=== PATIENT | male | born 1965 | race Caucasian/White ===

== ENCOUNTER 2024-02-25 23:27 | Inpatient (IN) | payer BC, SELFPAY ==
[2024-02-25] VITALS (9 sets, daily range): BP systolic 88–121; BP diastolic 39–67
[2024-02-25 18:18] LABS: % Basophils 0.9 % (0-2); % Eosinophils 1.7 % (0-6); % Immature Granulocytes 0.6 % (0-0.5); % Lymphocytes 24.2 % (20.5-51.1); % Monocytes 13.7 % (1.7-9.3); % Neutrophils 58.9 % (42.2-75.2); Absolute Basophils 0.1 10^3/uL (0-0.2); Absolute Eosinophils 0.2 10^3/uL (0-0.7); Absolute Immature Granulocytes 0.1 10^3/uL (0-0.05); Absolute Lymphocytes 2.2 10^3/uL (1.2-3.4); Absolute Monocytes 1.2 10^3/uL (0.1-0.6); Absolute Neutrophils 5.3 10^3/uL (1.4-6.5); Hematocrit 39.3 % (39.0-52.0); Hemoglobin 14.4 g/dL (13.0-18.0); Mean Corp Hgb Conc. 36.6 g/dL (33.0-37.0); Mean Corpuscular Volume 84.5 fL (80.0-94.0); Mean Platelet Volume 9.2 fL (7.4-10.4); Nucleated Red Blood Cells % 0 % (-); Platelet Count 450 10^3/uL (130-400); Red Blood Cell Count 4.65 10^6/uL (4.70-6.10); Red Cell Dist. Width 12.4 % (11.5-14.5)
[2024-02-25 18:54] LABS: ALT (SGPT) 19 U/L (0-50); AST (SGOT) 23 U/L (17-59); Albumin 4.9 g/dl (3.5-5.0); Alkaline Phosphatase 93 U/L (38-126); Blood Urea Nitrogen 37 mg/dl (9-20); Calcium 9.8 mg/dl (8.4-10.2); Carbon Dioxide 16 mmol/L (22-30); Chloride 95 mmol/L (98-107); Glucose 102 mg/dl (70-99); Lipase 237 U/L (23-300); Sodium 127 mmol/L (135-145); Total Bilirubin 1.8 mg/dl (0.2-1.3); Total Protein 7.6 g/dl (6.3-8.2); eGFR 50.26
[2024-02-25 19:02] LABS: Potassium 6.6 mmol/L (3.5-5.1)
--- NOTE | 2024-02-25 20:28 | ED.GENMED ---
History of Present Illness
General
Chief Complaint: Abdominal Pain
Source: patient
Time Seen by Provider: 02/25/24 19:58
History of Present Illness
History of Present Illness:
58-year-old male presents to the emergency room complaining of nausea, vomiting, general abdominal discomfort over the past few days. Patient also feels like his stomach, face and mouth are swollen over the past week. In addition feel short of
breath. Patient states he does have a history of adrenal insufficiency. He has been prescribed steroids and Synthroid but has not been taking them for years. Patient denies any recent fever.
Past History
Past History
ED Past Medical History: Other (Both thyroidism, [place]'s disease)
Social History
Tobacco: Non-smoker
Alcohol: None
Drug: None
Living: with family
Employment: Employed
Family History
Family History: Other (Diabetes in mother and father hypothyroidism and rheumatoid arthritis and his mother )
Phy Exam
Physical Exam
Physical Exam:
General: Awake, Alert, Oriented X3. No acute distress.
Vitals: unremarkable
Head: Mild facial edema
Eyes: Pupils equal, EOMI
Throat: Airway intact, no exudates
Neck: Trachea midline
Lungs: Clear and equal b/l
Heart: Regular rate, no murmurs
Abd: Soft, mild diffuse tenderness, No pulsatile mass
Neuro: Nonfocal
Skin: Warm, dry, no rash
Extremities: pulses equal b/l, no edema
Course
Orders/Labs/Results
Orders:
Orders
02/25/24 17:50
Electrocardiogram (*1) Urgent
Reason for Study: Abdominal Pain
EKG- Treatment ONCE
02/25/24 18:10
Complete Blood Count/With Diff Urgent
Comprehensive Metabolic Panel Urgent
Free T4 Urgent
Lipase Urgent
TSH Reflex To Free T4 Urgent
Comment: ADD ON
02/25/24 20:21
0.9% Sodium Chloride 1000 ml [Nss] 1,000 ml IV BOLUS
Hydrocortisone Sod Succinate [Solu-Cortef] 100 mg IV NOW STA
CR Chest - 2 Views Urgent
Comment:
Reason For Exam: sob
02/25/24 20:25
Albuterol Sulfate [Ventolin Nebules] 10 mg INH R NOW STA
Dextrose 50%-Water [Dextrose 50% Syringe] 12.5 grams IV [id number] PRN
Dextrose 50%-Water [Dextrose 50% Syringe] 25 grams IV NOW STA
Insulin Human Regular [Novolin R] 10 units IV NOW STA
02/25/24 20:26
Bedside Glucose PRE IV Insulin- HyperK+ NOW
02/25/24 20:28
Add On- LAB Urgent
Tests Added?: tsh reflex t4
02/25/24 20:32
CT Abd/pelvis W Iv Cont Urgent
Comment:
Reason For Exam: Diffuse abd dscmfrt, nausea, vomiting, adrenal ins
02/25/24 21:44
COVID-19 Antigen Urgent
Source: Nasal Swab
Urinalysis Reflex To Culture Urgent
Date Specimen was Collected: 02/25/24
Time Specimen was Collected: 17:50
Urine Microscopic Reflex Cult Urgent
Urine Culture Urgent
LUIS ENRIQUE Source: U
Specimen Description:
Date Specimen was Collected: 02/25/24
Time Specimen was Collected: 17:50
02/25/24 21:56
Bedside Glucose POST IV Insulin- HyperK+ Q1HX2,Q2HX2
02/25/24 22:08
0.9% Sodium Chloride 1000 ml [Nss] 1,000 ml IV BOLUS
02/25/24 22:10
Cefepime HCl [Maxipime] 2,000 mg IV NOW STA
02/25/24 22:11
Dextrose 50%-Water [Dextrose 50% Syringe] 12.5 grams IV NOW STA
02/25/24 22:25
Blood Culture Urgent
LUIS ENRIQUE Source: Blood/Venous
Specimen Description:
02/25/24 22:34
Blood Culture Routine
LUIS ENRIQUE Source: Blood/Venous
Specimen Description:
02/25/24 22:56
Potassium Urgent
Comment: draw 2 hours after regular insulin IV administration
02/25/24 23:17
Admit/Transfer Patient As Directed
Co-Sign Provider:
Level of Care: Inpatient admission
Assign to:: ICU
Physician / Group: ren
Diagnosis: adrenal crisis
Reason for Hospitalization: adrenal crisis
Expected length of stay greater than two midnights?: Yes
ELOS- Estimated Length of Stay in days: 2
I certify the patient meets the requirements for IP care: Yes
02/25/24 23:19
Code Status As Directed
Resuscitation Status: Full Code
PRN Pain Medication Management As Directed
May give lesser potent ordered pain med per pt: Yes
preference::
Protocol:: Medication orders for pain may be administered in a
manner that supports deferring to patient preference
when the pt is:
- Requesting an ordered lesser potent pain medication.
Least to most potent pain medications are defined
as: acetaminophen < NSAID < tramadol < opioids
(morphine, oxycodone, hydromorphone).
- Requesting a lesser dose of the same medication IF
ORDERED.
- Requesting a less intrusive route of administration
if both routes are prescribed by the provider (PO <
IV).
02/25/24 23:44
BMP [Basic Metabolic Panel] Urgent
Cortisol, Random Urgent
02/25/24 23:45
VANCOMYCIN Pharmacy to Dose [VANCOCIN Pharmacy to Dose] 1 each Pharmacy To Prepare [Call Pharmacy To Prepare] 0 ml IV PER PROTOCOL
Abnormal Lab Results
1002/25/24 02/25/24
18:10 21:44 22:09
RBC 4.65 L 10^6/uL
(4.70-6.10)
Plt Count 450 H 10^3/uL
(130-400)
Abs Immat Gran (auto) 0.1 H 10^3/uL
(0-0.05)
Absolute Monos (auto) 1.2 H 10^3/uL
(0.1-0.6)
Immature Gran % 0.6 H %
(0-0.5)
Monocytes % 13.7 H %
(1.7-9.3)
Sodium 127 L mmol/L
(135-145)
Potassium 6.6 H* mmol/L
(3.5-5.1)
Chloride 95 L mmol/L
(98-107)
Carbon Dioxide 16 L mmol/L
(22-30)
BUN 37 H mg/dl
(9-20)
Creatinine 1.6 H mg/dL
(0.7-1.3)
Glucose 102 H mg/dl
(70-99)
Total Bilirubin 1.8 H mg/dl
(0.2-1.3)
TSH (Reflex) 8.44 H uIU/ml
(0.47-4.68)
Urine Ketones 2+ A
(Negative)
Ur Occult Blood Reflex 2+ A
(Negative)
Urine Nitrite (Reflex) Positive A
(Negative)
Leukocyte Esterase Rfl 2+ A
(Negative)
Urine RBC 3-6 A /HPF
(0-2)
Urine WBC (Reflex) 50-60 A /HPF
(0-5)
Urine Bacteria (Reflex) Moderate A
(Negative)
Urine Glucose 1+ A
(Negative)
POC Glucose 55 L* mg/dl
(70-99)
02/25/24 02/25/24
22:28 22:57
RBC
Plt Count
Abs Immat Gran (auto)
Absolute Monos (auto)
Immature Gran %
Monocytes %
Sodium
Potassium
Chloride
Carbon Dioxide
BUN
Creatinine
Glucose
Total Bilirubin
TSH (Reflex)
Urine Ketones
Ur Occult Blood Reflex
Urine Nitrite (Reflex)
Leukocyte Esterase Rfl
Urine RBC
Urine WBC (Reflex)
Urine Bacteria (Reflex)
Urine Glucose
POC Glucose 132 H mg/dl 114 H mg/dl
(7099) (7099)
02/25/24 18:10
02/25/24 22:56
Vital Signs
Initial and Last Documented VS:
Initial Vital Signs
Temp Pulse Resp BP Pulse Ox
98.2 F 108 16 100/67 98
02/25/24 17:46 02/25/24 17:46 02/25/24 17:46 02/25/24 17:46 02/25/24 17:46
Last Documented Vital Signs
Temp Pulse Resp BP Pulse Ox
98.2 F 99 23 98/55 93
02/25/24 17:46 02/26/24 00:00 02/26/24 00:00 02/26/24 00:00 02/26/24 00:00
MDM/Problems Addressed
Differential Diagnosis Includes:
Adrenal crisis, adrenal insufficiency, urinary tract infection with sepsis, dehydration
MDM/Problems Addressed:
Patient presents with multiple symptoms. He is afebrile. 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 His labs show hyponatremia with hyperkalemia and metabolic acidosis. Also some renal insufficiency.
All these issues certainly be related to his adrenal disease and noncompliance. Patient's EKG showed perhaps mild peaking of the T waves but intervals are normal. Hyperkalemia addressed with IV dextrose and insulin and as well as albuterol. I do
not believe Lokelma or other binding agent is necessary as I suspect the patient's potassium will normalize with treatment of the underlying disease of adrenal insufficiency. Patient was given 100 mg of hydrocortisone for adrenal insufficiency.
Patient given normal saline boluses for hypotension and dehydration. Patient's urinalysis is abnormal. Though he was not febrile he I gave him broad-spectrum antibiotics as adrenal crisis is frequently secondary to an acute infection.
Chronic conditions affecting care: Other ([place]'s disease)
*Radiology
Radiology exam reviewed: preliminary read by ED provider (No acute or abnormality on my review of the patient's chest x-ray)
*Pulse Oximetry
Patient hypoxic: no
*EKG
Interpretation: normal
Heart Rate: 92
Rate: normal
Rhythm: sinus
[place]: normal axis
Interval: normal interval
QRS Pattern: normal QRS
Ischemia: non-specific ST changes (Mildly peaked T waves)
*Cement Sprayer Helper Interpretation
Rate: normal
Interpretation: normal
Rhythm: sinus
*Critical Care Note
Total Time (30-74mins, 75-104mins- exclusive of procedures): 35 min
comment:
Critical care statement: A total of 35 minutes of critical care time was provided for this patient. This includes management of unstable vital signs, evaluation of the patient at bedside, reviewing the patient's pertinent medical records, discussion
with consultants, review of old EKGs and review of pertinent medical records. This time with separate from time utilized to perform the aforementioned documented procedures
ED Attending Note
-
Portions of this chart may have been created with voice recognition software.� Occasional wrong word or��sound alike� substitutions may have occurred due to the inherent limitations of voice recognition software.
Discharge Plan
Departure
Patient Disposition: Admit
Date of Disposition: 02/25/24
Time of Disposition: 22:56
Admit to: ICU
Presentation/result/management discussed w/ accepting MD/DO: Hospitalist
Condition: Serious
Discharge Problem:
Adrenal crisis, Hyperkalemia, Hypotension
Interventions
Interventions:
*Risk Screen - Suicide Last Done: 02/25/24 17:46
*General Assessment Last Done: 02/25/24 20:15
*Neglect/Abuse Screening Last Done: 02/25/24 17:46
ED- Fall Risk Assessment Last Done: 02/25/24 20:16
*ED COVID-19 Vaccine History Last Done: 02/25/24 20:15
SD-Buzeku-Vjfbllumib Assessment Last Done: 02/25/24 20:16
[2024-02-25 20:31] LABS: Glucose - Point of Care 99 mg/dl (70-99)
[2024-02-25] MEDS: VENTOLIN NEBULES 10 MG INH (20:43)
[2024-02-25] MEDS: SOLU-CORTEF 100 MG IV (20:44)
[2024-02-25] MEDS: DEXTROSE 50% SYRINGE 25 GRAMS IV (20:44)
[2024-02-25] MEDS: NOVOLIN R 10 UNITS IV (20:44)
[2024-02-25] MEDS: NSS 1000 IV ×2 (20:47→22:35)
[2024-02-25 21:51] LABS: TSH Reflex To Free T4 8.44 uIU/ml (0.47-4.68)
[2024-02-25 21:58] LABS: Urine Albumin Negative (Neg - Trace); Urine Bilirubin Negative (Negative); Urine Character Slightly Cloudy (Clear); Urine Color Yellow; Urine Glucose 1+ (Negative); Urine Ketone 2+ (Negative); Urine Leukocyte 2+ (Negative); Urine Nitrite Positive (Negative); Urine Occult Blood 2+ (Negative); Urine Urobilinogen Negative (Neg - 1+)
[2024-02-25 22:10] LABS: Glucose - Point of Care 55 mg/dl (70-99)
[2024-02-25 22:12] LABS: COVID-19 Antigen Negative (Negative)
[2024-02-25] MEDS: DEXTROSE 50% SYRINGE 12.5 GRAMS IV (22:12)
[2024-02-25 22:20] LABS: Free T4 1.07 ng/dl (0.78-2.19)
[2024-02-25 22:29] LABS: Glucose - Point of Care 132 mg/dl (70-99)
[2024-02-25] MEDS: MAXIPIME 2000 MG IV (22:35)
[2024-02-25 22:58] LABS: Glucose - Point of Care 114 mg/dl (70-99)
[2024-02-25 22:59] LABS: Urine Bacteria Moderate (Negative); Urine White Cell 50-60 /HPF (0-5)
[2024-02-25 23:19] LABS: Potassium 4.7 mmol/L (3.5-5.1)
--- NOTE | 2024-02-25 23:23 | HPS.HSE ---
Family Physician
-
Family Physician: Julieta Santos
Chief Complaint
-
abdominal pain
History of Present Illness
58-year-old male past medical history of adrenal insufficiency, chronic abdominal pain since childhood, hypothyroidism presenting with nausea and epigastric abdominal pain, right neck swelling over the past few days. He denies any diarrhea. He
denies any fevers or chills. He denies any cough or shortness of breath. He denies any urinary symptoms. He denies any chest pain. He denies any upper respiratory symptoms.
He has a history of adrenal insufficiency which was diagnosed several years ago under similar circumstances. He has had abdominal pain since childhood which was undiagnosed for a long period of time. He was supposed to be on steroid replacement
and thyroid replacement but has not taken the medications for several years or followed up with an pattern ruler. He denies any fevers or chills, weight gain or weight loss.
He denies smoking or alcohol use.
Denies smoking or alcohol use.
Medical History
Past Medical History
Past Medical History: Reports Other (adrenal insufficiency, chronic abdominal pain since childhood, hypothyroidism)
Past Surgical History: Reports None
Social History
Tobacco: Non-smoker
Alcohol: None
Drug: None
Family History
Family History: Not pertinent
Allergies / Home Medications
Allergies reflects when Allergies were last updated in [employer].
Home Medications with original date entered in [employer]
Allergy/Medication List:
Allergies
Allergy/AdvReac Type Severity Reaction Status Date / Time
grass pollen Allergy Unknown Verified 02/25/24 20:38
house dust Allergy Unknown Verified 02/25/24 20:36
pollen extracts Allergy Unknown Verified 02/25/24 20:36
tree and shrub pollen Allergy Unknown Verified 02/25/24 20:36
Home Medications
No Meds [No Current Medications] 02/25/24
Review of Systems
-
History Source: Patient
A 12 point ROS was completed and negative except as noted: Yes
Constitutional: Reports No Symptoms
EENT: Reports No Symptoms
Respiratory: Reports No Symptoms
Cardiac: Reports No Symptoms
Abdomen/GI: Reports See HPI
: Reports No Symptoms
Musculoskeletal: Reports No Symptoms
Skin: Reports No Symptoms
Neurological: Reports No Symptoms
Endocrine: Reports No Symptoms
Hematologic/Lymphatic: Reports No Symptoms
Psych: Reports No Symptoms
Physical Exam
Vital Signs
Vital Signs
Temp Pulse Resp BP Pulse Ox
98.2 F 95 18 92/57 98
02/25/24 17:46 02/25/24 23:00 02/25/24 23:00 02/25/24 22:30 02/25/24 23:00
Physical Exam
General: Well Developed, Well Nourished and No Apparent Distress
HEENT: NormoCephalic, Moist mucous membranes and Atraumatic
Respiratory: Clear
Cardiac: S1/S2 and Regular Rhythm; No Murmur or Rub
GI: Soft, Non Tender, Non Distended and Normal Bowel Sounds; No Organomegaly
Rectal: Deferred by Provider
Musculoskeletal: No Clubbing, No Cyanosis and No Edema
Skin: No Rash
Neuro: Nonfocal/grossly intact
Laboratory Results
-
02/25/24 18:10
02/25/24 22:56
Laboratory Results
Total Bilirubin 1.8 mg/dl (0.2-1.3) H 02/25/24 18:10
AST 23 U/L (17-59) 02/25/24 18:10
ALT 19 U/L (0-50) 02/25/24 18:10
Alkaline Phosphatase 93 U/L (38-126) 02/25/24 18:10
Lipase 237 U/L (23-300) 02/25/24 18:10
Data Reviewed
-
Lab Data: Labs Reviewed by me
Old Records: Reviewed
Impression/Plan
-
IMPRESSION:
PLAN:
# Hypovolemic shock secondary acute adrenal insufficiency/crisis secondary to [place]'s medication noncompliance versus UTI
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
-CT abdomen pelvis without acute finding
-Chest x-ray negative
-Check ACTH, cortisol level, TSH
-100 IV hydrocortisone given
-Continue 50 IV hydrocortisone q6
-Endocrinology consult tomorrow
# Asymptomatic pyuria
-Await urine culture
-Zosyn
# Non-anion gap metabolic acidosis
# Severe hyperkalemia secondary to adrenal insufficiency
-IV fluids given
-Insulin dextrose given, albuterol given
-Recheck BMP in 4 hours
# Hyponatremia secondary to renal insufficiency
- monitor with current treatments
# Acute kidney injury secondary to hypotension
-IV fluid
# Subclinical hypothyroidism
-TSH of 8.44, free T4 1.07
-Patient needs to be on levothyroxine
# Right neck swelling secondary to lymph node versus edema from adrenal insufficiency
-Appears to be due to palpable lymph node although no evidence of upper respiratory infection
Full code
DVT prophylaxis-heparin
Regular diet
[2024-02-26] VITALS (24 sets, daily range): BP systolic 84–111; BP diastolic 45–76; BMI 19.6; BMI 19.5
[2024-02-26 00:10] LABS: Blood Urea Nitrogen 34 mg/dl (9-20); Calcium 8.2 mg/dl (8.4-10.2); Carbon Dioxide 14 mmol/L (22-30); Chloride 100 mmol/L (98-107); Estimated Creatinine Clearance 62 ml/min; Glucose 124 mg/dl (70-99); Potassium 4.8 mmol/L (3.5-5.1); Sodium 129 mmol/L (135-145); eGFR > 60.00
[2024-02-26 00:55] LABS: Glucose - Point of Care 124 mg/dl (70-99)
[2024-02-26] MEDS: SOLU-CORTEF 50 MG IV ×2 (01:20→06:09)
[2024-02-26] MEDS: NSS 1000 IV (01:24)
[2024-02-26 01:27] LABS: Cortisol, Random 78.3 ug/dl
[2024-02-26] MEDS: ZOSYN 50 IV ×2 (01:32→06:09)
--- NOTE | 2024-02-26 02:07 | PTCARENOTE ---
Received pt from er awake oriented tolerated transfer well.Pt ambulated from stretcher to bed without difficulty.Physical assessment preformed,pt denies pain,VS stable afebrile,NSR metal sprayer production.IVF initiated NSS at 120mls hour.Pt self positioning
in bed.Close observation ongoing throughout the night.
[2024-02-26] MEDS: VANCOCIN 300 ML IV (02:28)
[2024-02-26] MEDS: VANCOCIN 300 MG IV (02:28)
[2024-02-26 05:11] LABS: % Basophils 0.2 % (0-2); % Immature Granulocytes 0.3 % (0-0.5); % Lymphocytes 6.4 % (20.5-51.1); % Monocytes 1.8 % (1.7-9.3); % Neutrophils 91.3 % (42.2-75.2); Absolute Lymphocytes 0.4 10^3/uL (1.2-3.4); Absolute Monocytes 0.1 10^3/uL (0.1-0.6); Absolute Neutrophils 5.7 10^3/uL (1.4-6.5); Hematocrit 34.3 % (39.0-52.0); Hemoglobin 12.3 g/dL (13.0-18.0); Mean Corp Hgb Conc. 35.9 g/dL (33.0-37.0); Mean Corpuscular Hgb 30.6 pg (27.0-31.0); Mean Corpuscular Volume 85.3 fL (80.0-94.0); Mean Platelet Volume 9.3 fL (7.4-10.4); Nucleated Red Blood Cells % 0 % (-); Platelet Count 329 10^3/uL (130-400); Red Blood Cell Count 4.02 10^6/uL (4.70-6.10); Red Cell Dist. Width 12.3 % (11.5-14.5); White Blood Cell Count 6.2 10^3/uL (4.8-10.8)
[2024-02-26 05:32] LABS: APTT 35.3 Sec (23.4-35.0)
[2024-02-26 05:33] LABS: ALT (SGPT) 17 U/L (0-50); AST (SGOT) 19 U/L (17-59); Albumin 3.9 g/dl (3.5-5.0); Alkaline Phosphatase 80 U/L (38-126); Blood Urea Nitrogen 26 mg/dl (9-20); Calcium 8.8 mg/dl (8.4-10.2); Carbon Dioxide 14 mmol/L (22-30); Chloride 101 mmol/L (98-107); Estimated Creatinine Clearance 71 ml/min; Glucose 133 mg/dl (70-99); Potassium 5.9 mmol/L (3.5-5.1); Sodium 130 mmol/L (135-145); Total Bilirubin 1.7 mg/dl (0.2-1.3); Total Protein 6.4 g/dl (6.3-8.2); eGFR > 60.00
[2024-02-26] MEDS: SODIUM BICARBONATE 50 MEQ IV (06:08)
[2024-02-26] MEDS: SODIUM BICARBONATE 1075 MEQ IV (06:36)
[2024-02-26] MEDS: HEPARIN 5000 UNITS SC (07:49)
--- NOTE | 2024-02-26 07:55 | PTCARENOTE ---
Received patient from night shift supervisor, patient is AAOx4, moves all extremities, denies any pain. He is sinus rhythm on monitor, on room air, lungs clear. Patient has regular diet. Using urinal to void. Heparin for DVT prophylaxis. Will review
orders. call jimenez within reach.
--- NOTE | 2024-02-26 08:17 | CON.INTV ---
Consultation
Consultation Request
Date/Time Consultation Requested: 02/26/2024320
Date/Time Consultation Performed: 02/26/2024809
Requesting Provider: ADDI Chauhan
Performing Provider: Michael Amaro MD
Reason for Consultation: Hypotension/concern for adrenal crisis
Medical History
-
Chief Complaint: Abd pain
History of Present Illness:
58-year-old male non-smoker with a past medical history of [place]'s disease, chronic abdominal pain, hypothyroidism, and GERD who presents with abdominal pain with intermittent nausea for a few days. Patient denies vomiting, and also states that
his left lower mouth has been swollen. No tooth pain reported. He was told to previously follow-up with endocrinology and was supposed be on steroid replacement + thyroid hormone medications but has not been taking these medications for several
years or has seen an mail messenger contractor. In the ER he was afebrile to 98.2 �F, tachycardic to 108 bpm, BP 100/67, breathing at 16 breaths/min and saturating 98% on room air. Initial labs showed normal WBC at 9, Hb 14.4, platelet count 450, potassium
6.6, serum bicarbonate level 16, A, creatinine 1.6, glucose 102, T. bili 1.8, and TSH 8.44 (free T4: 1.07). His urinalysis was positive for nitrites with 50�60 urine WBC and moderate bacteria. He is COVID antigen was negative. Blood cultures
were collected in addition to urine culture. CXR showed no acute cardiopulmonary pathology, and CT A/P showed no acute findings in the abdomen or pelvis with mild prostamegaly with prominent central calcifications. In the ER he was given cefepime,
10 units insulin with D50, albuterol, 100 mg hydrocortisone and IVF with NS 0.9% x 2L. He was admitted to the ICU for further care and integration assistant services consulted for additional management/recommendations.
Patient was seen and evaluated this morning. Heart rate 88, BP 109/76 and saturating 98% on room air. Denies any painful urination, and as of this morning his abdominal pain is resolved. He says that his abdominal pain was in the lower abdomen.
He denies SOB, chest pain, RESTREPO, nausea, fevers or chills.
PMHx: History of adrenal insufficiency/[place]'s disease NOS, chronic abdominal pain, hypothyroidism, GERD, history of bilateral cataracts
PSHx: Non-contributory
Past Medical History
Past Medical History: Other (Above as per HPI)
Past Surgical History: Other (Above as per HPI)
Social History
Tobacco: Non-smoker
Alcohol: None
Drug: None
Family History
Family History: Cancer (Paternal grandfather: Lymphoma)
Allergies / Home Medications
Allergies
Allergy/AdvReac Type Severity Reaction Status Date / Time
grass pollen Allergy Unknown Verified 02/25/24 20:38
house dust Allergy Unknown Verified 02/25/24 20:36
pollen extracts Allergy Unknown Verified 02/25/24 20:36
tree and shrub pollen Allergy Unknown Verified 02/25/24 20:36
Home Medications
�Medication �Instructions �Recorded �Confirmed �Last Taken �Type
No Meds [No Current Medications] 02/25/24 02/25/24 Unknown History
Review of Systems
-
History Source: Patient
All other systems: Negative unless noted
Vitals / Labs / Diagnostic Testing
Vital Signs
Temp Pulse Resp BP Pulse Ox
97.9 F 96 19 99/72 95
02/26/24 08:25 02/26/24 07:15 02/26/24 07:15 02/26/24 07:00 02/26/24 08:02
Lab Data
02/26/24 04:48
02/26/24 04:48
Laboratory Results
02/26/24
04:48
PT 15.0 H
INR 1.20
APTT 35.3 H
Diagnostic Testing:
Physical Exam
-
HEENT: Normocephalic and Anicteric
Cardiovascular: S1/S2 and Peripheral Edema (negative)
Respiratory: Clear, Wheeze (negative), Rales (negative), Rhonchi (negative) and Non-Labored Respirations
GI: Soft, Non Distended, Non Tender and Normal Bowel Sounds
Neurology: Awake, Alert and Tremors (negative)
Skin: Warm and Dry
General: Respiratory Distress (negative), Comfortable, Chills (negative) and Sweats (negative)
Assessment
-
Assessment: 58-year-old male non-smoker with a past medical history of Lance's disease, chronic abdominal pain, hypothyroidism, and GERD who presents with abdominal pain with intermittent nausea for a few days. Patient denies vomiting, and also
states that his left lower mouth has been swollen. No tooth pain reported. He was told to previously follow-up with endocrinology and was supposed be on steroid replacement + thyroid hormone medications but has not been taking these medications
for several years or has seen an mail messenger contractor. In the ER he was afebrile to 98.2 �F, tachycardic to 108 bpm, BP 100/67, breathing at 16 breaths/min and saturating 98% on room air. Initial labs showed normal WBC at 9, Hb 14.4, platelet count
450, potassium 6.6, serum bicarbonate level 16, A, creatinine 1.6, glucose 102, T. bili 1.8, and TSH 8.44 (free T4: 1.07). His urinalysis was positive for nitrites with 50�60 urine WBC and moderate bacteria. He is COVID antigen was negative.
Blood cultures were collected in addition to urine culture. CXR showed no acute cardiopulmonary pathology, and CT A/P showed no acute findings in the abdomen or pelvis with mild prostamegaly with prominent central calcifications. In the ER he was
given cefepime, 10 units insulin with D50, albuterol, 100 mg hydrocortisone and IVF with NS 0.9% x 2L. He was admitted to the ICU for further care and integration assistant services consulted for additional management/recommendations.
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
Impression:
#Hypotension -likely due to UTI, doubtful to be adrenal insufficiency given random cortisol level is WNL at 78.3, which was drawn after hydrocortisone given in the ER
#Abnormal urinalysis suspicious for UTI with positive nitrite and 50�60 urine WBC with moderate bacteria
#Anemia (mild)
#Metabolic acidosis with increased anion gap likely due to KASSIE (last creatinine on file was 0.8 from 2010)
#Hyperkalemia
#Hyperbilirubinemia
#Hyponatremia
#Subclinical hypothyroidism
#History of adrenal insufficiency/[place]'s disease NOS
Plan:
- Continue antibiotics (currently on IV vancomycin + Zosyn) --> considering that likely infection is UTI, will change to ceftriaxone; plan for total of 5-7 days Abx
- Follow up blood Cx + UCx (both collected 02/25/2024)
- Currently on bicarb drip
- Trend pH + pCO2 --> pH 7.34 and serum bicarbonate level on repeat labs this 20 ---> okay to stop bicarb drip now at this time and continue trending pH + serum bicarbonate level
- BOHB level also checked and was WNL at 0.12
- Patient currently on hydrocortisone 50 mg IV q6hr --> consider cosyntropin stimulation test to assess for primary adrenal insufficiency however will first stop hydrocortisone as adrenal insufficiency is unlikely given his random cortisol level is
>75
- Check lactate level --> WNL at 1.6 (no longer need to continue trending)
- Follow up ACTH
- Follow-up outpatient with endocrinology
- Maintain SpO2 >90-94%
- Maintain MAP>65
- Replete electrolytes with K>4, Mg>2
- Maintain euglycemia with goal BG 140-180
- Trend H/H and transfuse if needed to keep Hb>7g/dL; kep plt>20k, unless there is concern for bleeding then keep plt>50k
- prn nebulized bronchodilators - not currently bronchospastic
- Incentive spirometer encouraged 10x per hour for at least 4 hrs a day
- DVT ppx: LMWH
Patient is stable for downgrade out of ICU to telemetry given his potassium is now normalized, serum bicarbonate is improved and bicarb drip is now discontinued. As stated above, he should follow-up with endocrinology as an outpatient.
Clinical Review Nurse/Pulmonary service will now sign off. Thank you for allowing us to be involved in the care of this patient. Please reconsult if there are any additional questions/concerns, or if patient's respiratory status deteriorates.
Total time spent today was 56 minutes for this encounter. Time includes reviewing laboratory test/imaging results, reviewing pertinent medical records, obtaining and reviewing medical history, performing an appropriate exam, ordering medications,
tests and procedures. Time also includes documentation of this encounter, coordinating patient care and communicating with other healthcare professionals. Total time does not include separately billed tests performed on this date of service.
--- NOTE | 2024-02-26 08:28 | W.PN.HOSP.TC ---
Today's Communication/Plan
-
Transferred from ICU to tele
Continue antibiotics, follow cultures
I spoke with on-call party demonstrator, okay to hold off on Hydrocortisone for now but if patient becomes hypotensive and blood pressure drops, will need to start IV stress dose steroids in addition to transfer to IMU/ICU and fluids, pressors if needed
Recheck cortisol level tomorrow morning
Assessment / Plan
Assessment / Plan
Physical Exam
General: Well Developed, Well Nourished and No Apparent Distress
HEENT: NormoCephalic, Moist mucous membranes and Atraumatic
Respiratory: Clear
Cardiac: S1/S2 and Regular Rhythm; No Murmur or Rub
GI: Soft, Non Tender, Non Distended and Normal Bowel Sounds; No Organomegaly
Rectal: Deferred by Provider
Musculoskeletal: No Clubbing, No Cyanosis and No Edema
Skin: No Rash
Neuro: Nonfocal/grossly intact

Assessment/Plan
58-year-old male non-smoker with a past medical history of [place]'s disease, chronic abdominal pain, hypothyroidism, and GERD who presented with abdominal pain with intermittent nausea for a few days prior to presentation. Patient reported that his
left lower mouth had been swollen. Patient was told to previously follow-up with endocrinology and was supposed be on steroid replacement + thyroid hormone medications but has not been taking these medications for several years or had seen an
party demonstrator. In the ER, he was afebrile to 98.2 �F, tachycardic to 108 bpm, BP 100/67, breathing at 16 breaths/min and saturating 98% on room air. Initial labs showed normal WBC at 9, Hb 14.4, platelet count 450, potassium 6.6, serum
bicarbonate level 16, A, creatinine 1.6, glucose 102, T. bili 1.8, and TSH 8.44 (free T4: 1.07). His urinalysis was positive for nitrites with 50�60 urine WBC and moderate bacteria. His COVID antigen was negative. Blood cultures were collected
in addition to urine culture. CXR showed no acute cardiopulmonary pathology, and CT A/P showed no acute findings in the abdomen or pelvis. In the ER, he was given cefepime, 10 units insulin with D50, albuterol, 100 mg hydrocortisone and IVF with NS
0.9% x 2L. He was admitted to the ICU for further care and legal administrative secretary services consulted for additional management/recommendations.
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
#Hypotension - likely secondary to UTI
#Abnormal urinalysis suspicious for UTI with positive nitrite and 50�60 urine WBC with moderate bacteria
-CT abdomen pelvis without acute finding
-Chest x-ray negative
-Cortisol level unreliable (as patient received hydrocortisone IV shortly before that), need another cortisol level
-Hydrocortisone stress dose steroids stopped, but if patient becomes hypotensive and blood pressure drops, start IV stress dose steroids in addition to transfer to IMU/ICU
-Recheck cortisol level again tomorrow morning
-TSH noted as high -- if patient does not have adrenal insufficiency, then can start Levothyroxine
-Continue antibiotics with Rocephin, status post Vancomycin and Zosyn -- continue for a total of 5 to 7 days of antibiotics
-Follow blood cultures and urine cultures
-Spoke with endocrinology who recommended repeating a cortisol level tomorrow morning
#Anemia
-Monitor CBC
#Metabolic acidosis with increased anion gap likely due to KASSIE (last creatinine on file was 0.8 from 2010)
#Hyperkalemia
-Received bicarb drip
-Beta Hydroxybutyrate level also checked and was WNL at 0.12
-Monitor BMP
#History of adrenal insufficiency/[place]'s disease NOS
#Hyponatremia, suspected secondary to renal insufficiency
-Monitor BMP
-PO Fluid Restriction
# Acute kidney injury - RESOLVED - secondary to hypotension
# Subclinical hypothyroidism
-TSH of 8.44, free T4 1.07
-Patient needs to be on levothyroxine BUT not yet -- first need to rule out adrenal insufficiency
# Right neck swelling secondary to lymph node versus edema from adrenal insufficiency
-Appears to be due to palpable lymph node although no evidence of upper respiratory infection
#Hyperbilirubinemia
#Chronic abdominal pain
#Hypothyroidism
#GERD
#History of bilateral cataracts
Code Status: Full code
DVT Prophylaxis: Heparin Subq
Diet: Regular diet
Anticipated Discharge: > 48 hours
Subjective/Interval History
-
Date of Service: February 26, 2024
Patient was seen and examined. He denied any new significant symptoms or complaints.
Objective Data
-
Labs:
Laboratory Results
02/25/24 02/25/24 02/26/24
22:56 23:44 04:48
WBC 6.2
Hgb 12.3 L
Hct 34.3 L
Plt Count 329 D
PT 15.0 H
INR 1.20
APTT 35.3 H
Sodium 129 L 130 L
Potassium 4.7 D 4.8 5.9 H
Chloride 100 101
Carbon Dioxide 14 L* 14 L*
BUN 34 H 26 H
Creatinine 1.3 1.1
Glucose 124 H 133 H
Calcium 8.2 L D 8.8
Total Bilirubin 1.7 H
AST 19
ALT 17
Alkaline Phosphatase 80
Vital Signs:
Vital Signs
Temp Pulse Resp BP Pulse Ox
97.9 F 96 19 99/72 95
02/26/24 08:25 02/26/24 07:15 02/26/24 07:15 02/26/24 07:00 02/26/24 08:02
I&O
02/25/24 02/26/24 02/27/24
06:59 06:59 06:59
Intake Total 1360 / 1460 200 / 200
Output Total 800 / 800
Balance 560 / 660 200 / 200
--- NOTE | 2024-02-26 09:59 | CM ---
CM following re: discharge planning.
Reviewed pt's chart, met with pt.
Pt is a 58 year old male, admitted with primary dx of abdominal pain.
Pt reports he livers with father, stepmother, sister in law and a nephew in a 2SH, 2 steps to enter, has no children. Pt described himself as independent in all areas [employer]. No DME, VN or SNF history.
PCP: Julieta Santos
Pharmacy: [facility].
D/C plan: home with anticipated no needs. Family to transport at discharge.
CM will follow with discharge plan updates as hospitalization progresses
[2024-02-26 11:07] LABS: Venous Blood Gas B.E. -4.8 mmol/L (-4 to +4); Venous Blood Gas HCO3 20.5 mmol/L (22-27); Venous Blood Gas O2 Sat % 95.6 %; Venous Blood Gas pCO2 38 mmHg (35-48); Venous Blood Gas pH 7.34 (7.32-7.43); Venous Blood Gas pO2 71 mmHg (30-50)
[2024-02-26 11:22] LABS: Lactic Acid 1.6 mmol/L (0.7-2.0)
[2024-02-26] MEDS: STERILE WATER FOR INJECTION 10 ML IV (13:38)
[2024-02-26] MEDS: ROCEPHIN 1000 MG IV (13:38)
[2024-02-26 14:44] LABS: Blood Urea Nitrogen 26 mg/dl (9-20); Calcium 8.3 mg/dl (8.4-10.2); Carbon Dioxide 20 mmol/L (22-30); Chloride 97 mmol/L (98-107); Estimated Creatinine Clearance 87 ml/min; Glucose 195 mg/dl (70-99); Potassium 4.6 mmol/L (3.5-5.1); Sodium 128 mmol/L (135-145); eGFR > 60.00
[2024-02-26 14:51] LABS: B-Hydroxybutyrate 0.12 mmol/L (0.02-0.27)
--- NOTE | 2024-02-26 15:43 | PTCARENOTE ---
No change in patient's assessment. Bicarb gtt discontinued. Will downgrade to tele status per MD
--- NOTE | 2024-02-26 16:48 | PTCARENOTE ---
Transferred patient to room 316 bed 1.
[2024-02-26] MEDS: LOVENOX 40 MG SC (17:52)
--- NOTE | 2024-02-26 17:55 | PTCARENOTE ---
1625 Pt received in bed as transferred from ICU. Pt oriented to staff, environment and call light system.
[2024-02-26 22:08] LABS: Blood Urea Nitrogen 30 mg/dl (9-20); Calcium 8.4 mg/dl (8.4-10.2); Carbon Dioxide 21 mmol/L (22-30); Chloride 98 mmol/L (98-107); Estimated Creatinine Clearance 87 ml/min; Glucose 145 mg/dl (70-99); Magnesium 1.6 mg/dl (1.6-2.3); Potassium 4.2 mmol/L (3.5-5.1); Sodium 129 mmol/L (135-145); eGFR > 60.00
[2024-02-27 03:30] VITALS: BP 120/70
[2024-02-27 06:48] LABS: Venous Blood Gas B.E. -1.1 mmol/L (-4 to +4); Venous Blood Gas HCO3 24.3 mmol/L (22-27); Venous Blood Gas O2 Sat % 95.2 %; Venous Blood Gas pCO2 42 mmHg (35-48); Venous Blood Gas pH 7.37 (7.32-7.43); Venous Blood Gas pO2 70 mmHg (30-50)
[2024-02-27 06:54] LABS: Hemoglobin 12.7 g/dL (13.0-18.0); Mean Corp Hgb Conc. 36.3 g/dL (33.0-37.0); Mean Corpuscular Hgb 30.9 pg (27.0-31.0); Mean Corpuscular Volume 85.2 fL (80.0-94.0); Mean Platelet Volume 9.2 fL (7.4-10.4); Platelet Count 359 10^3/uL (130-400); Red Blood Cell Count 4.11 10^6/uL (4.70-6.10); Red Cell Dist. Width 12.4 % (11.5-14.5); White Blood Cell Count 7.5 10^3/uL (4.8-10.8)
[2024-02-27 07:16] VITALS: BP 114/72
[2024-02-27 07:32] LABS: ALT (SGPT) 18 U/L (0-50); AST (SGOT) 19 U/L (17-59); Alkaline Phosphatase 71 U/L (38-126); Blood Urea Nitrogen 23 mg/dl (9-20); Carbon Dioxide 23 mmol/L (22-30); Chloride 98 mmol/L (98-107); Direct Bilirubin 0.1 mg/dl (0.0-0.4); Estimated Creatinine Clearance 98 ml/min; Glucose 106 mg/dl (70-99); Magnesium 1.7 mg/dl (1.6-2.3); Sodium 134 mmol/L (135-145); Total Bilirubin 0.6 mg/dl (0.2-1.3); Total Protein 6.5 g/dl (6.3-8.2); eGFR > 60.00
[2024-02-27 07:57] LABS: Cortisol, Random 5.5 ug/dl
[2024-02-27 08:54] LABS: % Basophils 0.6 % (0-2); % Eosinophils 0.9 % (0-6); % Immature Granulocytes 0.3 % (0-0.5); % Lymphocytes 23.9 % (20.5-51.1); % Monocytes 9.1 % (1.7-9.3); % Neutrophils 65.2 % (42.2-75.2); Absolute Eosinophils 0.1 10^3/uL (0-0.7); Absolute Lymphocytes 1.7 10^3/uL (1.2-3.4); Absolute Monocytes 0.6 10^3/uL (0.1-0.6); Absolute Neutrophils 4.5 10^3/uL (1.4-6.5); Hematocrit 33.3 % (39.0-52.0); Mean Corpuscular Hgb 30.9 pg (27.0-31.0); Mean Corpuscular Volume 85.8 fL (80.0-94.0); Mean Platelet Volume 9.4 fL (7.4-10.4); Nucleated Red Blood Cells % 0 % (-); Platelet Count 356 10^3/uL (130-400); Red Blood Cell Count 3.88 10^6/uL (4.70-6.10); Red Cell Dist. Width 12.4 % (11.5-14.5); White Blood Cell Count 6.9 10^3/uL (4.8-10.8)
--- NOTE | 2024-02-27 08:58 | W.PN.HOSP.TC ---
Today's Communication/Plan
-
Discharge today
Assessment / Plan
Assessment / Plan
Physical Exam
General: Not in acute distress
HEENT: Normocephalic, Moist mucous membranes and Atraumatic
Respiratory: Clear to Auscultation Bilaterally
Cardiac: S1/S2 and Regular Rhythm
GI: Soft, Non Tender, Non Distended and Normal Bowel Sounds
Musculoskeletal: No Cyanosis and No Edema
Skin: Warm. Dry.
Neuro: Nonfocal/grossly intact

Assessment/Plan
58-year-old male non-smoker with a past medical history of [place]'s disease, chronic abdominal pain, hypothyroidism, and GERD who presented with abdominal pain with intermittent nausea for a few days prior to presentation. Patient reported that his
left lower mouth had been swollen. Patient was told to previously follow-up with endocrinology and was supposed be on steroid replacement + thyroid hormone medications but has not been taking these medications for several years or had seen an
demand inspector. In the ER, he was afebrile to 98.2 �F, tachycardic to 108 bpm, BP 100/67, breathing at 16 breaths/min and saturating 98% on room air. Initial labs showed normal WBC at 9, Hb 14.4, platelet count 450, potassium 6.6, serum
bicarbonate level 16, A, creatinine 1.6, glucose 102, T. bili 1.8, and TSH 8.44 (free T4: 1.07). His urinalysis was positive for nitrites with 50�60 urine WBC and moderate bacteria. His COVID antigen was negative. Blood cultures were collected
in addition to urine culture. CXR showed no acute cardiopulmonary pathology, and CT A/P showed no acute findings in the abdomen or pelvis. In the ER, he was given cefepime, 10 units insulin with D50, albuterol, 100 mg hydrocortisone and IVF with NS
0.9% x 2L. He was admitted to the ICU for further care and health and safety representative services consulted for additional management/recommendations.
Chronic conditions [employer]S: History of adrenal insufficiency/Lance's disease NOS,
#Hypotension - likely secondary to UTI
#Abnormal urinalysis suspicious for UTI with positive nitrite and 50�60 urine WBC with moderate bacteria
#Enterococcus UTI
-CT abdomen pelvis without acute finding
-Chest x-ray negative
-Cortisol level unreliable (as patient received hydrocortisone IV shortly before that), need another cortisol level
-Hydrocortisone IV stress dose steroids stopped (and replaced with PO Hydrocortisone), but if patient becomes hypotensive and blood pressure drops, start IV stress dose steroids in addition to transfer to
IMU/ICU
-TSH noted as high -- spoke with Dr. Cano, and okay to start Levothyroxine 50 mcg tomorrow morning
-Status post Rocephin, and status post Vancomycin and Zosyn before the Rocephin
-I spoke on 02/27/24 with clinical pharmacist Charlene Barfield, and after discussion with her via [employer], we agreed to do Amoxicillin 500mg PO TID for 7 days
-Follow-up blood cultures and urine culture final result after discharge
-Spoke with demand inspector Dr. Cano, AM cortisol level rechecked and result came at 5.5, Dr. Cano recommended Hydrocortisone 10 mg QAM (on waking up), and 5 mg QPM (in the afternoons)
#Anemia
-Monitor CBC
#Metabolic acidosis with increased anion gap likely due to KASSIE (last creatinine on file was 0.8 from 2010)
#Hyperkalemia
-Received bicarb drip
-Beta Hydroxybutyrate level also checked and was WNL at 0.12
-Monitor BMP
#History of adrenal insufficiency/Lance's disease NOS
#Hyponatremia, suspected secondary to renal insufficiency
-Monitor BMP
-PO Fluid Restriction
# Acute kidney injury - RESOLVED - secondary to hypotension
# Subclinical hypothyroidism
-TSH of 8.44, free T4 1.07
-Okay to start Levothyroxine 50 mcg daily starting on 02/27/24, as discussed with Dr. Cano, especially given that we have started the patient on hydrocortisone as well
# Right neck swelling secondary to lymph node versus edema from adrenal insufficiency
-Appears to be due to palpable lymph node although no evidence of upper respiratory infection
#Hyperbilirubinemia
#Chronic abdominal pain
#Hypothyroidism
#GERD
#History of bilateral cataracts
Code Status: Full code
DVT Prophylaxis: Heparin Subq
Diet: Regular diet
More than 30 minutes spent in discharge including
Final examination of the patient
Summarizing hospital stay
Instructions for continuing care to all relevant caregivers
Preparation of discharge records, prescriptions, and referral forms
Total time spent (in minutes): 38
Anticipated Discharge: Today
Subjective/Interval History
-
Date of Service: February 27, 2024
Patient was seen and examined. He denied any chest pain, shortness of breath, abdominal pain, fever, dizziness or any other complaints.
Objective Data
-
Labs:
Laboratory Results
02/26/24 02/27/24 02/27/24
21:21 06:38 08:39
WBC 7.5 6.9
Hgb 12.7 L 12.0 L
Hct 35.0 L 33.3 L
Plt Count 359 356
Sodium 129 L 134 L
Potassium 4.2 5.0
Chloride 98 98
Carbon Dioxide 21 L 23
BUN 30 H 23 H
Creatinine 0.9 0.8
Glucose 145 H 106 H
Calcium 8.4 9.0
Total Bilirubin 0.6 D
AST 19
ALT 18
Alkaline Phosphatase 71
Vital Signs:
Vital Signs
Temp Pulse Resp BP Pulse Ox
97.5 F 81 17 114/72 99
02/27/24 07:16 02/27/24 07:16 02/27/24 07:16 02/27/24 07:16 02/27/24 07:16
I&O
02/26/24 02/27/24 02/28/24
06:59 06:59 06:59
Intake Total 1360 / 1460 1520 / 1520
Output Total 800 / 800 450 / 450
Balance 560 / 660 1070 / 1070
[2024-02-27] MEDS: CORTEF 10 MG PO (09:19)
[2024-02-27 10:52] VITALS: BP 109/78
[2024-02-27] MEDS: AMOXIL 500 MG PO ×2 (12:24→16:19)
[2024-02-27] MEDS: CORTEF 5 MG PO (15:03)
[2024-02-27 15:05] VITALS: BP 105/73
[2024-02-27] MEDS: LOVENOX SC (17:48)
[2024-02-27] MEDS: AFLURIA (36 mos+) 2024-2025 FORMULA 0.5 ML IM (17:55)
[2024-02-27 17:57] VITALS: BP 110/65
[2024-02-28 01:01] LABS: Adrenocorticotropic Hormone 14.8 pg/mL (7.2-63.3)
== END 2024-02-27 19:30 | disposition home or self-care (01) | DRG 690 ==
LOC: 3 WEST ACU 23:27
PROVIDERS: Nurse Practitioner Primary Care; Registered Nurse; ADMITTING PHYSICIAN Hospitalist; ATTENDING PHYSICIAN Hospitalist; CONSULT PHYSICIAN Internal Medicine Critical Care Medicine; EMERGENCY PHYSICIAN Emergency Medicine; FAMILY PHYSICIAN Family Medicine
PROC: 3E02340 Introduction of Influenza Vaccine into Muscle, Percutaneous Approach (ICD-10-PCS; 2024-02-27)
DX: N39.0 Urinary tract infection, site not specified (principal); E87.1 Hypo-osmolality and hyponatremia; E87.20 Acidosis, unspecified; N17.9 Acute kidney failure, unspecified; E27.1 Primary adrenocortical insufficiency; B95.2 Enterococcus as the cause of diseases classified elsewhere; E03.8 Other specified hypothyroidism; E87.5 Hyperkalemia; G89.29 Other chronic pain; I95.9 Hypotension, unspecified; K21.9 Gastro-esophageal reflux disease without esophagitis; D64.9 Anemia, unspecified; Z91.148 Patient's other noncompliance with medication regimen for other reason; Z11.52 Encounter for screening for COVID-19; Z23 Encounter for immunization
CPT/HCPCS: 71046; 74177; 80048; 80053; 81003; 81015; 82010; 82024; 82248; 82533; 82805; 82962; 83605; 83690; 83735; 84100; 84132; 84439; 84443; 85025; 85027; 85610; 85730; 87040; 87077; 87086; 87811; 90686; 93005; 94640; 96361; 96374; 96375; 96376; 99291; G0008; J7030; Q9967

== ENCOUNTER 2024-04-10 11:57 | Inpatient (IN) | payer BC, SELFPAY ==
[2024-04-10] VITALS (65 sets, daily range): BP systolic 63–124; BP diastolic 44–84; BMI 19.5; BMI 19.6
--- NOTE | 2024-04-10 08:27 | ED.GENMED ---
History of Present Illness
<Radha Ellington PA-C - Last Filed: 04/10/24 11:16>
General
Chief Complaint: Fainting/Passed Out
Source: patient
Exam Limitations: none
Time Seen by Provider: 04/10/24 08:10
Nursing documentation reviewed up to this point in time: agreed with
History of Present Illness
History of Present Illness:
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
Presents after family called EMS for syncopal event. Patient says he was up going to the bathroom and suddenly felt lightheaded and then passed out and lost consciousness. He landed on the ground but does not believe he injured his head. He has
no headache or complaints. His family heard the event and called 911 and they told him to leave him on the floor. Patient was awake and alert for EMS but hypotensive and then 90s. Patient was given a 750 bolus of fluid on the way here and his
pressure came up to low 100s for them. Patient's Accu-Chek was normal.
He has had syncope in the past. He cannot recall specific details about it. He is not cardiac patient. Patient says he started vomiting 3 days ago and vomited anything he ate or drank for a period of 24 hours. After that he has not really had an
appetite so he has not had much to eat or drink. He does state that even during the vomiting episodes he was taking his medications however I question the reliability. Patient was unaware of any instructions to stress dose his steroids when he was
sick.
Patient is having some epigastric pain but denies any black stool. His last bowel movement was a day or 2 ago. He has no chest pain, shortness of breath, hematemesis, urinary symptoms. Patient said he had a cough about a month ago but felt like
that was getting better prior to this vomiting several days ago.
Past History
<Radha Ellington PA-C - Last Filed: 04/10/24 11:16>
Past History
ED Past Medical History: Other (Both thyroidism, Kauai's disease)
Social History
Tobacco: Non-smoker
Alcohol: None
Drug: None
Living: with family
Employment: Employed
Family History
Family History: Other (Diabetes in mother and father hypothyroidism and rheumatoid arthritis and his mother )
Review of Systems
<Radha Ellington PA-C - Last Filed: 04/10/24 11:16>
Review of Systems
Allergies reviewed?: Yes
All Other Systems: Not applicable
Phy Exam
<Radha Ellington PA-C - Last Filed: 04/10/24 11:16>
Physical Exam
Physical Exam:
GENERAL: Alert , in no apparent distress
HEAD: NCAT
NECK: no midline tenderness, active ROM intact, no paraspinal muscle tenderness;
EYE: pupils equal and reactive, EOMs intact.
ENT: o/p clr, dry mucous membranes. no hemotympanum
CARDIAC: Tachycardic, no edema
LUNGS: Clear breath sounds bilaterally, no acute respiratory distress, no wheezes/rales/rhonchi
ABDOMEN: Soft, without focal tenderness, no r/g, no cvat
NEUROLOGICAL: Alert and oriented, no focal neuro deficits, CN intact, 5/5 strength, sensation intact
SKIN: Warm and dry,
MUSCULOSKELETAL: No edema, well perfused.
PSYCH: Normal and appropriate interaction.
Course
<Radha Ellington PA-C - Last Filed: 04/10/24 11:16>
Orders/Labs/Results
Orders:
Orders
04/10/24 08:09
Electrocardiogram (*1) Urgent
Reason for Study: Chest Pain
Cardiac Monitoring- Treatment ONCE
EKG- Treatment ONCE
IV Insert/Care/Rem.- Treatment PRN
O2 Therapy [RESP] Urgent
Titrate/Wean O2 to maintain O2 sat greater than (%): 90
Special Instructions: Maintain sats >/=90%
Pulse Ox/spot Check [RESP] Urgent
Quantity: 1
Special Instructions: ON ROOM AIR
04/10/24 08:22
Complete Blood Count/With Diff Urgent
Comprehensive Metabolic Panel Urgent
Cortisol, Random Urgent
Comment: ADD ON
Lipase Urgent
Comment: ADD ON
Serum Osmolality Urgent
Comment: ADD ON
TSH Reflex To Free T4 Urgent
Comment: ADD ON
TSH Urgent
Comment: ADD ON
Troponin I Urgent
04/10/24 08:25
0.9% Sodium Chloride 1000 ml [Nss] 1,000 ml IV BOLUS
Hydrocortisone Sod Succinate [Solu-Cortef] 100 mg IV NOW STA
04/10/24 08:26
Add On- LAB Urgent
Tests Added?: lipase
04/10/24 08:27
CR Chest Portable - 1 View Urgent
Comment:
Reason For Exam: sepsis
Reason Study Needs to be Portable: Patient Unstable
04/10/24 08:28
Add On- LAB Urgent
Tests Added?: tsh reflex t4, random cortisol
04/10/24 08:31
Acetaminophen [Tylenol] 650 mg PO NOW STA
04/10/24 08:49
COVID-19 Antigen Urgent
Source: Nasal Swab
Lactic Acid Q4H
Comment: CANCEL 2nd LACTIC ACID IF 1st LACTIC ACID IS LESS THAN 2
Blood Culture Urgent
LUIS ENRIQUE Source: Blood/Venous
Specimen Description:
Influenza A+B Rapid Molecular Urgent
LUIS ENRIQUE Source: Nasal Swab
Specimen Description:
04/10/24 09:03
Bladder Scan- Treatment ONCE
Dextrose 50%-Water [Dextrose 50% Syringe] 25 grams IV NOW STA
Insulin Human Regular [Novolin R] 4 units IV NOW STA
04/10/24 09:09
CT Abd/pel Without Iv Or Oral Urgent
Comment:
Reason For Exam: hypotensive, vomiting, kassie
04/10/24 09:21
Osmolality, Random Urine Urgent
Date Specimen was Collected: 04/10/24
Time Specimen was Collected: 09:14
Urinalysis Reflex To Culture Urgent
Date Specimen was Collected: 04/10/24
Time Specimen was Collected: 09:14
Urine Microscopic Reflex Cult Urgent
Urine Sodium Urgent
Date Specimen was Collected: 04/10/24
Time Specimen was Collected: 09:14
04/10/24 10:24
0.9% Sodium Chloride 500 ml [Nss] 500 ml IV BOLUS
04/10/24 10:26
Admit Patient As Directed
Co-Sign Provider:
Level of Care: Inpatient admission
Assign to:: ICU
Physician / Group: Hospitalist
Diagnosis: Adrenal crisis, hypovolemic/ septic shock
Reason for Hospitalization: Septic shock
Expected length of stay greater than two midnights?: Yes
ELOS- Estimated Length of Stay in days: 3
I certify the patient meets the requirements for IP care: Yes
Code Status As Directed
Resuscitation Status: Full Code
Precautions As Directed
Type of Precautions: Other
Comment: Fall precautions
PRN Pain Medication Management As Directed
May give lesser potent ordered pain med per pt: Yes
preference::
Protocol:: Medication orders for pain may be administered in a
manner that supports deferring to patient preference
when the pt is:
- Requesting an ordered lesser potent pain medication.
Least to most potent pain medications are defined
as: acetaminophen < NSAID < tramadol < opioids
(morphine, oxycodone, hydromorphone).
- Requesting a lesser dose of the same medication IF
ORDERED.
- Requesting a less intrusive route of administration
if both routes are prescribed by the provider (PO <
IV).
12/05/24 10:29
Activity As Directed
Activity Level: With Assistance
I&O [Intake/ Output] As Directed
Frequency: q12h
DX Deep Vein Thrombosis Video Routine
04/10/24 10:30
Intake/ Output As Directed
Frequency: Per unit guidelines
Vital Signs As Directed
Frequency: Per unit guidelines
04/10/24 10:32
Add On- LAB Urgent
Tests Added?: serum osmolality, tsh, random cortisol
04/10/24 11:00
3% Sodium Chloride 250 ml [Sodium Chloride 3%] 250 ml IV ONCE
04/10/24 20:00
Heparin 5,000 units SC Q12
Abnormal Lab Results
04/10/24 04/10/24 04/10/24
08:22 09:16 09:21
WBC 11.0 H 10^3/uL
(4.8-10.8)
MCH 31.2 H pg
(27.0-31.0)
Plt Count 444 H 10^3/uL
(130-400)
Absolute Neuts (auto) 7.9 H 10^3/uL
(1.4-6.5)
Absolute Monos (auto) 1.3 H 10^3/uL
(0.1-0.6)
Lymphocytes % 13.8 L %
(20.5-51.1)
Monocytes % 11.6 H %
(1.7-9.3)
Sodium 123 L mmol/L
(135-145)
Potassium 6.1 H* mmol/L
(3.5-5.1)
Chloride 93 L mmol/L
(98-107)
Carbon Dioxide 16 L mmol/L
(22-30)
BUN 61 H mg/dl
(9-20)
Creatinine 2.3 H mg/dL
(0.7-1.3)
Glucose 134 H mg/dl
(70-99)
Total Protein 6.1 L g/dl
(6.3-8.2)
Urine Bilirubin 1+ A
(Negative)
Leukocyte Esterase Rfl Trace A
(Negative)
Urine RBC 3-6 A /HPF
(0-2)
Urine Bacteria (Reflex) Few A
(Negative)
POC Glucose 126 H mg/dl
(70-99)
04/10/24
09:44
WBC
MCH
Plt Count
Absolute Neuts (auto)
Absolute Monos (auto)
Lymphocytes %
Monocytes %
Sodium
Potassium
Chloride
Carbon Dioxide
BUN
Creatinine
Glucose
Total Protein
Urine Bilirubin
Leukocyte Esterase Rfl
Urine RBC
Urine Bacteria (Reflex)
POC Glucose 158 H mg/dl
(70-99)
04/10/24 08:22
04/10/24 08:22
Vital Signs
Initial and Last Documented VS:
Initial Vital Signs
Temp
38.2 C H
04/10/24 08:21
Last Documented Vital Signs
Temp Pulse Resp BP Pulse Ox
38.2 C H 93 20 88/50 98
04/10/24 08:21 04/10/24 11:00 04/10/24 11:00 04/10/24 11:00 04/10/24 11:00
<Izaiah Murray, DO - Last Filed: 04/10/24 09:17>
Orders/Labs/Results
Orders:
Orders
04/10/24 08:09
Electrocardiogram (*1) Urgent
Reason for Study: Chest Pain
Cardiac Monitoring- Treatment ONCE
EKG- Treatment ONCE
IV Insert/Care/Rem.- Treatment PRN
O2 Therapy [RESP] Urgent
Titrate/Wean O2 to maintain O2 sat greater than (%): 90
Special Instructions: Maintain sats >/=90%
Pulse Ox/spot Check [RESP] Urgent
Quantity: 1
Special Instructions: ON ROOM AIR
04/10/24 08:22
Complete Blood Count/With Diff Urgent
Comprehensive Metabolic Panel Urgent
Cortisol, Random Urgent
Comment: ADD ON
Lipase Urgent
Comment: ADD ON
Serum Osmolality Urgent
Comment: ADD ON
TSH Reflex To Free T4 Urgent
Comment: ADD ON
TSH Urgent
Comment: ADD ON
Troponin I Urgent
04/10/24 08:25
0.9% Sodium Chloride 1000 ml [Nss] 1,000 ml IV BOLUS
Hydrocortisone Sod Succinate [Solu-Cortef] 100 mg IV NOW STA
04/10/24 08:26
Add On- LAB Urgent
Tests Added?: lipase
04/10/24 08:27
CR Chest Portable - 1 View Urgent
Comment:
Reason For Exam: sepsis
Reason Study Needs to be Portable: Patient Unstable
04/10/24 08:28
Add On- LAB Urgent
Tests Added?: tsh reflex t4, random cortisol
04/10/24 08:31
Acetaminophen [Tylenol] 650 mg PO NOW STA
04/10/24 08:49
COVID-19 Antigen Urgent
Source: Nasal Swab
Lactic Acid Q4H
Comment: CANCEL 2nd LACTIC ACID IF 1st LACTIC ACID IS LESS THAN 2
Blood Culture Urgent
LUIS ENRIQUE Source: Blood/Venous
Specimen Description:
Influenza A+B Rapid Molecular Urgent
LUIS ENRIQUE Source: Nasal Swab
Specimen Description:
04/10/24 09:03
Bladder Scan- Treatment ONCE
Dextrose 50%-Water [Dextrose 50% Syringe] 25 grams IV NOW STA
Insulin Human Regular [Novolin R] 4 units IV NOW STA
04/10/24 09:09
CT Abd/pel Without Iv Or Oral Urgent
Comment:
Reason For Exam: hypotensive, vomiting, kassie
04/10/24 09:21
Osmolality, Random Urine Urgent
Date Specimen was Collected: 04/10/24
Time Specimen was Collected: 09:14
Urinalysis Reflex To Culture Urgent
Date Specimen was Collected: 04/10/24
Time Specimen was Collected: 09:14
Urine Microscopic Reflex Cult Urgent
Urine Sodium Urgent
Date Specimen was Collected: 04/10/24
Time Specimen was Collected: 09:14
04/10/24 10:24
0.9% Sodium Chloride 500 ml [Nss] 500 ml IV BOLUS
04/10/24 10:26
Admit Patient As Directed
Co-Sign Provider:
Level of Care: Inpatient admission
Assign to:: ICU
Physician / Group: Hospitalist
Diagnosis: Adrenal crisis, hypovolemic/ septic shock
Reason for Hospitalization: Septic shock
Expected length of stay greater than two midnights?: Yes
ELOS- Estimated Length of Stay in days: 3
I certify the patient meets the requirements for IP care: Yes
Code Status As Directed
Resuscitation Status: Full Code
Precautions As Directed
Type of Precautions: Other
Comment: Fall precautions
PRN Pain Medication Management As Directed
May give lesser potent ordered pain med per pt: Yes
preference::
Protocol:: Medication orders for pain may be administered in a
manner that supports deferring to patient preference
when the pt is:
- Requesting an ordered lesser potent pain medication.
Least to most potent pain medications are defined
as: acetaminophen < NSAID < tramadol < opioids
(morphine, oxycodone, hydromorphone).
- Requesting a lesser dose of the same medication IF
ORDERED.
- Requesting a less intrusive route of administration
if both routes are prescribed by the provider (PO <
IV).
04/10/24 10:29
Activity As Directed
Activity Level: With Assistance
I&O [Intake/ Output] As Directed
Frequency: q12h
DX Deep Vein Thrombosis Video Routine
04/10/24 10:30
Intake/ Output As Directed
Frequency: Per unit guidelines
Vital Signs As Directed
Frequency: Per unit guidelines
04/10/24 10:32
Add On- LAB Urgent
Tests Added?: serum osmolality, tsh, random cortisol
04/10/24 11:00
3% Sodium Chloride 250 ml [Sodium Chloride 3%] 250 ml IV ONCE
04/10/24 20:00
Heparin 5,000 units SC Q12
Abnormal Lab Results
04/10/24 04/10/24 04/10/24
08:22 09:16 09:21
WBC 11.0 H 10^3/uL
(4.8-10.8)
MCH 31.2 H pg
(27.0-31.0)
Plt Count 444 H 10^3/uL
(130-400)
Absolute Neuts (auto) 7.9 H 10^3/uL
(1.4-6.5)
Absolute Monos (auto) 1.3 H 10^3/uL
(0.1-0.6)
Lymphocytes % 13.8 L %
(20.5-51.1)
Monocytes % 11.6 H %
(1.7-9.3)
Sodium 123 L mmol/L
(135-145)
Potassium 6.1 H* mmol/L
(3.5-5.1)
Chloride 93 L mmol/L
(98-107)
Carbon Dioxide 16 L mmol/L
(22-30)
BUN 61 H mg/dl
(9-20)
Creatinine 2.3 H mg/dL
(0.7-1.3)
Glucose 134 H mg/dl
(70-99)
Total Protein 6.1 L g/dl
(6.3-8.2)
Urine Bilirubin 1+ A
(Negative)
Leukocyte Esterase Rfl Trace A
(Negative)
Urine RBC 3-6 A /HPF
(0-2)
Urine Bacteria (Reflex) Few A
(Negative)
POC Glucose 126 H mg/dl
(70-99)
04/10/24
09:44
WBC
MCH
Plt Count
Absolute Neuts (auto)
Absolute Monos (auto)
Lymphocytes %
Monocytes %
Sodium
Potassium
Chloride
Carbon Dioxide
BUN
Creatinine
Glucose
Total Protein
Urine Bilirubin
Leukocyte Esterase Rfl
Urine RBC
Urine Bacteria (Reflex)
POC Glucose 158 H mg/dl
(70-99)
04/10/24 08:22
04/10/24 08:22
Vital Signs
Initial and Last Documented VS:
Initial Vital Signs
Temp
38.2 C H
04/10/24 08:21
Last Documented Vital Signs
Temp Pulse Resp BP Pulse Ox
38.2 C H 93 20 88/50 98
04/10/24 08:21 04/10/24 11:00 04/10/24 11:00 04/10/24 11:00 04/10/24 11:00
<Radha Ellington PA-C - Last Filed: 04/10/24 11:16>
MDM/Problems Addressed
Differential Diagnosis Includes:
hypovolemia, septic shock, adrenal crisis, syncope
MDM/Problems Addressed:
elaina morillo
going to need ICU
58 y/o M h/o haily's disease, hypothyroid
syncope this morning on way to the bathroom
vomited starting 3 days ago, for 24 hours and hasn't been eating/drinking
says he has been taking his hydrocortisone but i'm not really sure
very dry looking, hypotensive 70s, mild tachy 100s, febrile 38.2 rectally
no other findings on exam other than dry, awake and alert
ekg sinus tach
sodium 123
bun 60, cr 2.3 up from 0.8
k 6.1
so far he had 750 ml NSS via ems and has about 800 cc NS in here; bp is 83/48
i ordered urine lytes/sodium/serum osm, insulin/dextrose; (no sig ekg changes, mild t wave peaking at most)
we will obtain bladder scan, ua for osm/na
and noncon ct to r/o obstructive uropathy
d/w dr. echeverria, renal, and hospitalist; pt will require ICU level care.
LIU PLACED; PT IN RETENTION, BLADDER SCAN 500 PVR; no obstruction on CT
admit
<Izaiah Murray DO - Last Filed: 04/10/24 09:17>
*Critical Care Note
Total Time (30-74mins, 75-104mins- exclusive of procedures): 30
comment:
Critical care statement: A total of 30 minutes of critical care time was provided for this patient. This includes management of unstable vital signs, evaluation of the patient at bedside, reviewing the patient's pertinent medical records, discussion
with consultants, review of old EKGs and review of pertinent medical records. This time with separate from time utilized to perform the aforementioned documented procedures
ED Attending Note
<Radha Ellington PA-C - Last Filed: 04/10/24 11:16>
-
Portions of this chart may have been created with voice recognition software.� Occasional wrong word or��sound alike� substitutions may have occurred due to the inherent limitations of voice recognition software.
<Izaiah Murray DO - Last Filed: 04/10/24 09:17>
ED Attending Note
Patient seen and examined by attending physician: Yes
ED Attending Note:
I reviewed and agree with history treatment plan by Radha Ellington PA-C. My exam revealed 58-year-old male with tachycardia, fever 100.7, hypotensive, blood pressure 83/48. Suspect acute renal failure and hyponatremia caused by nausea vomiting
and diarrhea. Complicated by Kauai's disease. IV fluids, stress dose hydrocortisone given. Will discuss with nephrology regarding 3% normal saline. Await labs regarding osmolality and urine sodium. Admit to ICU.
Discharge Plan
Departure
Patient Disposition: Admit
Date of Disposition: 04/10/24
Time of Disposition: 09:05
Admit to: ICU
Presentation/result/management discussed w/ accepting MD/DO: Hospitalist
Condition: Fair
Covid-19: Not Applicable
Discharge Problem:
Acute adrenal crisis, Vomiting, KASSIE (acute kidney injury), Acute hyponatremia
Prescriptions:
No Action
hydrocortisone 10 mg tablet
10 mg PO DAILY@0700
hydrocortisone 10 mg tablet
5 mg PO DAILY@1500
levothyroxine 50 mcg capsule
50 mcg PO DAILY
Interventions
Interventions:
*Risk Screen - Suicide Last Done: 04/10/24 08:26
*General Assessment Last Done: 04/10/24 08:26
*Neglect/Abuse Screening Last Done: 04/10/24 08:26
ED- Fall Risk Assessment Last Done: 04/10/24 10:41
*ED COVID-19 Vaccine History Last Done: 04/10/24 10:41
ED- Cardiac Assessment Last Done: 04/10/24 08:25
ED- Neurological Assessment Last Done: 04/10/24 08:25
Discharge Date and Time
Print Language: MACEDONIAN
[2024-04-10] MEDS: NSS 1000 IV ×2 (08:39→15:21)
[2024-04-10 08:41] LABS: % Basophils 0.7 % (0-2); % Eosinophils 1.4 % (0-6); % Immature Granulocytes 0.3 % (0-0.5); % Lymphocytes 13.8 % (20.5-51.1); % Monocytes 11.6 % (1.7-9.3); % Neutrophils 72.2 % (42.2-75.2); Absolute Basophils 0.1 10^3/uL (0-0.2); Absolute Eosinophils 0.2 10^3/uL (0-0.7); Absolute Lymphocytes 1.5 10^3/uL (1.2-3.4); Absolute Monocytes 1.3 10^3/uL (0.1-0.6); Absolute Neutrophils 7.9 10^3/uL (1.4-6.5); Hematocrit 43.7 % (39.0-52.0); Hemoglobin 15.3 g/dL (13.0-18.0); Mean Corpuscular Hgb 31.2 pg (27.0-31.0); Mean Platelet Volume 9.5 fL (7.4-10.4); Nucleated Red Blood Cells % 0 % (-); Platelet Count 444 10^3/uL (130-400); Red Blood Cell Count 4.91 10^6/uL (4.70-6.10); Red Cell Dist. Width 12.2 % (11.5-14.5)
[2024-04-10] MEDS: TYLENOL 650 MG PO (08:42)
[2024-04-10] MEDS: SOLU-CORTEF 100 MG IV (08:42)
[2024-04-10 09:01] LABS: ALT (SGPT) 16 U/L (0-50); AST (SGOT) 17 U/L (17-59); Albumin 3.7 g/dl (3.5-5.0); Alkaline Phosphatase 75 U/L (38-126); Blood Urea Nitrogen 61 mg/dl (9-20); Calcium 8.7 mg/dl (8.4-10.2); Carbon Dioxide 16 mmol/L (22-30); Chloride 93 mmol/L (98-107); Estimated Creatinine Clearance 34 ml/min; Glucose 134 mg/dl (70-99); Potassium 6.1 mmol/L (3.5-5.1); Sodium 123 mmol/L (135-145); Total Bilirubin 1.1 mg/dl (0.2-1.3); Total Protein 6.1 g/dl (6.3-8.2); eGFR 32.51
[2024-04-10 09:10] LABS: Troponin I < 0.012 ng/ml
[2024-04-10 09:15] LABS: Lactic Acid 1.2 mmol/L (0.7-2.0)
[2024-04-10] MEDS: DEXTROSE 50% SYRINGE 25 GRAMS IV (09:16)
[2024-04-10] MEDS: NOVOLIN R 4 UNITS IV (09:18)
[2024-04-10 09:20] LABS: COVID-19 Antigen Negative (Negative)
[2024-04-10 09:22] LABS: Glucose - Point of Care 126 mg/dl (70-99)
--- NOTE | 2024-04-10 09:37 | W.CON.NEPH ---
Addendum entered and electronically signed by Luis Fernando Kathleen MD 04/10/24 14:33:
Shock hypovolemic vs septic (source GI/Pulm) or even combined vs adrenal crisis
-Pressor support
-IVF
-Admit to ICU
-Initiate IV steroids with hydrocortisone IV TID
-GI Ppx
-Board sprectum IVAtb
-BCx
Hyponatremia
-Could be related to Adrenal crisis/Addisons disease
-UOsm/Rishi
-Nephrology following already started hypertonic fluid
-Repeat BMP in the evening
HyperK
-Lokelma TID
-Low K diet
-Avoid K sparing agents
KASSIE
-likely prerenal vs intrinsic (ishcmic ATN)
-check Urine studies
-monitor UOP
-Avoid nephrotoxins and hypotension
Original Note:
Consultation
-
Date/Time Consultation Requested: 04/10/2024 9:00
Date/Time Consultation Performed: 04/10/2024 930AM
Requesting Provider: Andree Ellington
Performing Provider: Dr. Carrillo
Reason for Consultation: Hyponatremia hyperkalemia acute kidney injury
Medical History
-
Chief Complaint: Acute kidney injury hyponatremia hyperkalemia
History of Present Illness:
The patient is a 58-year-old male with a past medical history of hypothyroidism maintained on levothyroxine as well as Haily's disease maintained chronically on hydrocortisone support. He also has a known history of hyponatremia with serum sodium
levels usually in the high 120s to 130s. He presented to the hospital following a syncopal event last evening. He landed on the ground but did not appear to have any acute head trauma. On presentation to the hospital he was profoundly
hypotensive. The patient did admit to having vomiting 3 days ago and is not been eating or drinking well over the past day. There was also some associated epigastric pain. His last bowel movement was 48 hours prior.. On presentation to the ""hospital he was in acute kidney injury with a creatinine of 2.3 and was also profoundly hyponatremic with a serum sodium of 123 with associated hyperkalemia with a potassium of 6.1. He was hemodynamically unstable and nephrology was consulted to
see this critically ill patient.
Past Medical History
Hypothyroidism
Hyponatremia
Haily's disease on chronic steroid therapy
Social History
Tobacco: Non-Smoker
Alcohol: None
Family History
No chronic kidney disease
Allergies / Home Medications
Allergy/AdvReac Type Severity Reaction Status Date / Time
grass pollen Allergy Unknown Verified 04/10/24 08:31
house dust Allergy Unknown Verified 04/10/24 08:31
pollen extracts Allergy Unknown Verified 04/10/24 08:31
tree and shrub pollen Allergy Unknown Verified 04/10/24 08:31
�Medication �Instructions �Recorded �Confirmed �Type
hydrocortisone 10 mg tablet 5 mg PO DAILY@1500 haily's 04/10/24 04/10/24 History
disease
hydrocortisone 10 mg tablet 10 mg PO DAILY@0700 haily's 04/10/24 04/10/24 History
disease
levothyroxine 50 mcg capsule 50 mcg PO DAILY Thyroid 04/10/24 04/10/24 History
Review of Systems
-
History Source: Patient
All other systems: Negative unless noted
Constitutional: Fatigue
Abdomen/GI: Nausea, Vomiting, Constipated and Other (Decreased appetite and oral intake)
: No Symptoms
Neurological: Other (Syncope)
Physical Exam
Vital Signs
Vital Signs
Temp Pulse Resp BP Pulse Ox
100.7 F H 102 24 83/48 98
04/10/24 08:21 04/10/24 09:00 04/10/24 09:00 04/10/24 09:00 04/10/24 09:00
Lab Results
04/10/24 08:22
04/10/24 08:22
WBC 11.0 10^3/uL (4.8-10.8) H 04/10/24 08:22
RBC 4.91 10^6/uL (4.70-6.10) 04/10/24 08:22
Hgb 15.3 g/dL (13.0-18.0) 04/10/24 08:22
Hct 43.7 % (39.0-52.0) 04/10/24 08:22
Plt Count 444 10^3/uL (130-400) H 04/10/24 08:22
Sodium 123 mmol/L (135-145) L 04/10/24 08:22
Potassium 6.1 mmol/L (3.5-5.1) H* 04/10/24 08:22
Chloride 93 mmol/L (98-107) L 04/10/24 08:22
Carbon Dioxide 16 mmol/L (22-30) L 04/10/24 08:22
BUN 61 mg/dl (9-20) H 04/10/24 08:22
Creatinine 2.3 mg/dL (0.7-1.3) H 04/10/24 08:22
eGFR 32.51 04/10/24 08:22
Glucose 134 mg/dl (70-99) H 04/10/24 08:22
Calcium 8.7 mg/dl (8.4-10.2) 04/10/24 08:22
Albumin 3.7 g/dl (3.5-5.0) 04/10/24 08:22
Physical Exam
General: AOx3, Nontoxic , NAD
HEENT: PERRL, EOMI, Anicteric, Conjunctivae Clear, Ear/Nose Intact, Hearing Normal, Oropharynx Clear/dry, Dentition not the best, Facial Symmetry, Neck Supple, Neck: Trachea Midline, No JVD and No Thyromegaly, no Bruits
Respiratory: Clear to auscultation bilaterally with normal lung exersion
Cardiac: S1/S2 and Regular Rate/Rhythm
Breast: Deferred by me
Abdomen: Soft, Nontender, Nondistended, Normal Bowel Sounds and No Hepatosplenomegaly
Rectal: Deferred by Provider
Genito-urinary: No Costovertebral Tenderness
Extremities: No Clubbing, No Cyanosis and No Edema
Skin: No Rash or open lesions
Neuro: Nonfocal/Grossly Intact, CN II-XII (Intact) and Strength (Musculoskeletal exam 5 out of 5 both upper and lower extremities)
Hematologic/Lymphatic: No Cervical Lymphadenopathy, No Submandibular Lymphadenopathy and No Supraclavicular Lymphadenopathy
Psych: Mood/afflect pleasant, Insight/judgement good and Appropriate
Vascular: plus 2 pedal and radial pulses
Data Reviewed
-
Labs: Labs Reviewed by me (BMP urine sodium urine osmolality serum osmolality)
Old Records: Reviewed (sodium 134,0.8 02/27/24)
Assessment/Plan
-
Impression:
Acute kidney injury
Hyponatremia
Metabolic acidosis
Hyperkalemia
Syncope
Hypothyroid
Haily's disease
Plan:
Hyponatremia:
-Obtain urine osmolality, fluid restrict, will provide 3% saline at 30cc/per hr for 250cc
-Maintain steroid support, may need to implement IV hydrocortisone in the short-term
-Suspect hyponatremia is due to possible underlying adrenal insufficiency with subsequent hemodynamic instability
-Recheck BMP around 5 PM
Acute kidney injury:
Likely prerenal induced from hypotension on presentation
Placing Mccain as urinary retention was noted in the emergency room
Will check urinalysis urine sodium and urine creatinine
Need to support blood pressure, would recommend IV hydrocortisone 50 mg IV every 8hr
Hypokalemia:
-Should improve with anabaptism of hemodynamics and correction of acidosis
-Will provide Lokelma 10 g 3 times daily
-Recheck bmp later this afternoon
--- NOTE | 2024-04-10 09:45 | HPS.HSE ---
Family Physician
-
Family Physician:
[facility] family practice
Chief Complaint
-
Fall d/t lightheadedness, vomiting
History of Present Illness
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 Patient states he came down from his
bedroom upstairs to the kitchen which was downstairs and suddenly felt lightheaded while standing on his feet and fell to the ground. Denies any nausea, vomiting or headache post fall event. Family heard him falling and called EMS. En route to
the hospital, he was hypotensive (systolic blood pressure in the 70s) and was given 750 cc normal saline by EMS. Patient mentions having persistent vomiting starting 3 days ago which lasted almost 24 hours. Last vomit as far as patient can recall
was yesterday and he has not been eating since. However, states he has been drinking a little and taking his medications. Patient lives with father and stepmom. Mentions his dad had been sick the past week and coughing. He also had some coughs
before the vomiting started which went away. Denies shortness of breath or any other URI symptoms. Denies chest pain. Denies diarrhea/constipation. Last bowel movement was 4 days ago and this is his baseline. Denies urinary symptoms.
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 Denies feeling more fatigued recently compared to before. Denies recent dental work.
Medical History
Past Medical History
Past Medical History: Reports GERD and Hypothyroidism
Additional Past Medical History:
Lance disease, chronic abdominal pain
Past Surgical History: Reports Other (Bilateral cataract surgery)
Social History
Tobacco: Non-smoker
Alcohol: None
Drug: None
Living: With Family (With father and stepmom)
Employment: Employed
Family History
Family History: Not pertinent
Allergies / Home Medications
Allergies reflects when Allergies were last updated in [employer].
Home Medications with original date entered in [employer]
Allergy/Medication List:
Allergies
Allergy/AdvReac Type Severity Reaction Status Date / Time
grass pollen Allergy Unknown Verified 04/10/24 08:31
house dust Allergy Unknown Verified 04/10/24 08:31
pollen extracts Allergy Unknown Verified 04/10/24 08:31
tree and shrub pollen Allergy Unknown Verified 04/10/24 08:31
Home Medications
hydrocortisone 10 mg tablet 5 mg PO DAILY@1500 lance's disease 04/10/24
hydrocortisone 10 mg tablet 10 mg PO DAILY@0700 lance's disease 04/10/24
levothyroxine 50 mcg capsule 50 mcg PO DAILY Thyroid 04/10/24
Review of Systems
-
History Source: Patient
A 12 point ROS was completed and negative except as noted: Yes
Constitutional: Reports See HPI
EENT: Reports See HPI
Respiratory: Reports See HPI
Cardiac: Reports See HPI
Abdomen/GI: Reports See HPI
: Reports See HPI
Musculoskeletal: Reports See HPI
Skin: Reports See HPI
Neurological: Reports See HPI
Endocrine: Reports See HPI
Hematologic/Lymphatic: Reports See HPI
Psych: Reports See HPI
Physical Exam
Vital Signs
Vital Signs
Temp Pulse Resp BP Pulse Ox
100.7 F H 102 24 83/48 98
04/10/24 08:21 04/10/24 09:00 04/10/24 09:00 04/10/24 09:00 04/10/24 09:00
Physical Exam
General: Well Developed and Comfortable
HEENT: NormoCephalic, Anicteric, PERRLA, No Ptosis and Other (Dry mucous membrane, poor dental hygiene)
Respiratory: Clear
Cardiac: S1/S2, Regular Rhythm and Tachycardia (Mildly tachycardic)
GI: Soft, Non Distended, Normal Bowel Sounds and Tender (Mild RLQ tenderness, no rebound, no guarding)
Genito-urinary: Mccain (Draining concentrated urine)
Musculoskeletal: No Clubbing, No Cyanosis and No Edema
Skin: Warm and Dry
Neuro: Awake, Alert, Oriented, AO x 3, No Motor Deficits and No Sensory Deficits
Psych: Calm
Laboratory Results
-
04/10/24 08:22
04/10/24 08:22
Laboratory Results
Lactic Acid 1.2 mmol/L (0.7-2.0) 04/10/24 08:49
Total Bilirubin 1.1 mg/dl (0.2-1.3) 04/10/24 08:22
AST 17 U/L (17-59) 04/10/24 08:22
ALT 16 U/L (0-50) 04/10/24 08:22
Alkaline Phosphatase 75 U/L (38-126) 04/10/24 08:22
Troponin I < 0.012 ng/ml 04/10/24 08:22
Impression/Plan
-
58-year-old male with past medical history of Stanton's disease, hypothyroidism presenting after a syncope episode. Was found to have fever, hypotensive shock, KASSIE, hyperkalemia, hyponatremia in ED.
#Possible Septic shock
SIRS positive
Blood culture x 2 sent
COVID-negative, influenza negative
UA not active
Chest x-ray normal
Lactic acid level normal
ABD/pelvis CT scan: No obstructive uropathy, no diverticulitis
No evident source found for infection-will hold off antibiotics for now
Tylenol as needed for fever
Infectious disease consulted
# Hypovolemic shock possibly in the setting of adrenal crisis
Admitted to ICU
Deputy Prosecuting Attorney consulted
IV hydrocortisone 50 every 6 hours
Pressors as needed to maintain MAP more than 65
1L normal saline at 80cc/hr
Fall precautions
No nausea or vomiting at this time-on regular diet with aspiration precautions-Zofran as needed
Check random cortisol
Telemonitoring
Monitor vital signs
Monitor bedside blood glucose
Thrombocytosis likely in the setting of dehydration-will continue to monitor CBC daily
# KASSIE most likely in the setting of hypovolemia/adrenal crisis
Received insulin plus dextrose 50 in ED- Lokelma 10 (max 3 doses for 24 hours) for hyperkalemia
Metabolic acidosis w high anion gap- Anticipate to improve after IV hydrocortisone
Re-check BMP at 4 PM
Check urine osmolality, sodium, creatinine
Noted to have retention in the ED-continue Mccain
Nephrology consulted
# DVT prophylaxis
Heparin 5000 SC every 12 hours
# GERD
Pantoprazole 40 daily
Full code
[2024-04-10 09:46] LABS: Glucose - Point of Care 158 mg/dl (70-99)
[2024-04-10 09:47] LABS: Urine Albumin Trace (Neg - Trace); Urine Bilirubin 1+ (Negative); Urine Character Clear (Clear); Urine Color Yellow; Urine Glucose Negative (Negative); Urine Ketone Negative (Negative); Urine Leukocyte Trace (Negative); Urine Nitrite Negative (Negative); Urine Occult Blood Negative (Negative); Urine Urobilinogen 1+ (Neg - 1+)
[2024-04-10 10:03] LABS: Lipase 150 U/L (23-300)
[2024-04-10 10:17] LABS: Urine Squamous Cell 0-2 /LPF (Few)
[2024-04-10 10:18] LABS: Urine Bacteria Few (Negative); Urine Sodium 69 mmol/L (30-90)
[2024-04-10 10:26] LABS: Osmolality Urine 545 mOsm/kg (300-900)
[2024-04-10] MEDS: NSS 500 IV (10:30)
[2024-04-10] MEDS: SODIUM CHLORIDE 3% 250 IV (10:30)
[2024-04-10 10:44] LABS: Glucose - Point of Care 74 mg/dl (70-99)
[2024-04-10 11:29] LABS: Osmolality Serum 272 mOsm/kg (275-300)
[2024-04-10 11:36] LABS: Glucose - Point of Care 87 mg/dl (70-99)
[2024-04-10 12:12] LABS: TSH 8.69 uIU/ml (0.47-4.68); TSH Reflex To Free T4 8.69 uIU/ml (0.47-4.68)
[2024-04-10 12:59] LABS: Cortisol, Random 6.5 ug/dl
--- NOTE | 2024-04-10 13:39 | CON.ID ---
Consultation
-
Date/Time Consultation Requested: 04/10/24 13:19
Date/Time Consultation Performed: 04/10/24 13:39
Requesting Provider: Dr Whitt
Performing Provider: Dr Weber
Reason for Consultation: septic shock, adrenal crisis
Chief Complaint / Past History
Chief Complaint
Fall d/t lightheadedness, vomiting
History of Present Illness
Mr Dunn is a 58 year old male with h/o Addisons disease on hydrocortisone, chronic hyponatremia who presented here today for a wall this morning. Symptoms began 3 days ago first with nonproductive cough which resolved then with vomiting x24
hours. No shortness of breath or chest pain. Of note his father (household contact) has been sick with a cough for a week. He stopped eating but has been able to drink some fluids and take his medications. Vomiting resolved almost 24 hours, then
today, he descended a flight of stairs to his kitchen, suddenly felt light headed and felt to the ground. No headache, chest pain, diarrhea, constipation or dysuria. Denies chronic abdominal pain to me. Family heard the fall and called ems. He
was found to be hypotensive given 750 ccs of normal saline.
Of note at his last admission 02/26 patient had been off of adrenal replacement and thyroid supplementation xyears. TSH at that time 8.4 and free T4 1.07 today TSH 8.69 and free T4 1.2. Scripts on dc sent to [facility]/pharmacy #[id number] [place] [address]
[place] [address]. Called and spoke with pharmacist and scripts transferred to [facility] [phone], called for back line for pharmacist twice - no answer. Patient insists that he is taking medications as prescribed and volunteered
unprompted that his home medications incude hydrocortisone and levothyroxine. 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 last admission thought to have UTI
Since arrival here Tmax is 100.7, bp on arrival 70/50s now stabilizing with volume resuscitation, wbc 11.0, hgb 15, plt 444, no L shift but there is monocytosis, Na on arrival 123, K 6.1, cr 2.3 from baseline of 0.8, lactic acid 1.2, t bili 1.1, ast
17, alt 16, alk pohs 75, TSH 8.69, free T4 1.2, 8am random cortisol 6.5, ua 6-10 wbc/hpf, covid ag neg, CXR: no active CP disease, CT a/p without IV or oral contrast: no acute abnormalities, minimal L pleural effusion and bibasilar atelectasis,
influenza negative, blood cultures x1 in progress, I sent second set. ID is consulted for assistance with management.
Past History
Additional Past Medical History:
GERD
Hypothyroidism
Wolf disease
chronic abdominal pain
Additional Past Surgical History:
bilateral cataract extraction
Allergy History:
grass pollen Allergy (Verified 04/10/24 08:31)
Unknown
house dust Allergy (Verified 04/10/24 08:31)
Unknown
pollen extracts Allergy (Verified 04/10/24 08:31)
Unknown
tree and shrub pollen Allergy (Verified 04/10/24 08:31)
Unknown
Medications Reviewed: Yes
Social History
Tobacco: Non-Smoker
Alcohol: None
Drug: None
Family History
Family History: Not Pertinent
Review of Systems
Review of Systems
General: Negative Fever or Chills
All systems: All other systems were reviewed and were negative
Vital Signs
Temp Pulse Resp BP Pulse Ox
100.7 F H 101 26 90/59 99
04/10/24 08:21 04/10/24 13:15 04/10/24 13:15 04/10/24 13:15 04/10/24 13:15
Physical Exam
Physical Exam
Constitutional: Acutely Ill and Chronically Ill
Cardiovascular: Regular Rate and S1/S2; Negative Murmur or Rub
Pulmonary: Clear and Symmetric; Negative Wheezes, Rales or Rhonchi
Gastrointestinal: Soft, Tender (epigastric pain), Non Distended and Normal Bowel Sounds
Skin: Warm and Dry; Negative Rash or Jaundice
Neurological: Awake
Lab / Diagnostic Study Results
04/10/24 08:22
Abs Immat Gran (auto) 0.0 10^3/uL (0-0.05) 04/10/24 08:22
Absolute Neuts (auto) 7.9 10^3/uL (1.4-6.5) H 04/10/24 08:22
Absolute Lymphs (auto) 1.5 10^3/uL (1.2-3.4) 04/10/24 08:22
Absolute Monos (auto) 1.3 10^3/uL (0.1-0.6) H 04/10/24 08:22
Absolute Basos (auto) 0.1 10^3/uL (0-0.2) 04/10/24 08:22
Immature Gran % 0.3 % (0-0.5) 04/10/24 08:22
Neutrophils % 72.2 % (42.2-75.2) 04/10/24 08:22
Lymphocytes % 13.8 % (20.5-51.1) L 04/10/24 08:22
Monocytes % 11.6 % (1.7-9.3) H 04/10/24 08:22
Eosinophils % 1.4 % (0-6) 04/10/24 08:22
Basophils % 0.7 % (0-2) 04/10/24 08:22
Lactic Acid 1.2 mmol/L (0.7-2.0) 04/10/24 08:49
Lactic Acid Cancelled 04/10/24 08:49
Ur Squamous Epith Cells 0-2 /LPF (Few) 04/10/24 09:21
Microbiology Results
Micro:
04/10/24 08:49 Influenza Types A & B (JORGE) - Final
Nasal Swab Negative for Influenza A & B, NAAT
Negative results must be combined with clinical observations
and patient history.
Nucleic Acid Amplification test (NAAT)performed on the
[employer] platform.
04/10/24 08:49 Blood Culture - Pending
Blood/Venous
Assessment / Plan
Shock Most likely Hypovolemic
Fever
Adrenal Crisis
+/- resolving gastroenteritis
KASSIE
- blood cultures x2 (sent second set)
- CT a/p without contrast: no acute pathology, no evidence of diverticulitis
- UA without pyuria
- covid and influenza screens negative
- cortisol level inappropriately low given shock, obtained prior to ER administration of hydrocortisone
- acth pending
- possibly viral cause of gastroenteritis with hypovolemia and secondary adrenal crisis, alternatively if he did not fill his medications, nausea and vomiting can be symptoms of adrenal crisis itself
- given fevers, start empiric unasyn for the time being for possible translocation, if patient stabilizes and no definitive source found may consider stopping.
[2024-04-10 13:51] LABS: Glucose - Point of Care 138 mg/dl (70-99)
[2024-04-10] MEDS: PROTONIX 40 MG PO (14:16)
--- NOTE | 2024-04-10 15:30 | CON.INTV ---
Consultation
Consultation Request
Date/Time Consultation Requested: 04/10/2024 - 145
Date/Time Consultation Performed: 04/10/2024 - 1523
Requesting Provider: Dr. Kathleen
Performing Provider: Dr. Amaro
Reason for Consultation: Adrenal crisis
Medical History
-
Chief Complaint: Passed out
History of Present Illness:
58-year-old male with a past medical history of adrenal insufficiency, chronic abdominal pain, hypothyroidism, GERD and bilateral cataracts who presented after passing out at home. He has a history of [place]'s disease diagnosed approximately 7
years ago on chronic hydrocortisone. He was recently hospitalized here at [facility] from 02/24 - 02/27/2024 and discharged home on hydrocortisone 15 mg daily. He did not feel his hydrocortisone since the start of this month and he says that he
has been meaning to. On the way to the hospital he was hypotensive with SBP in the 70s and he was given 750 cc of NS 0.9% by EMS. He has been vomiting about 3 days ago and has not been eating. His dad has been sick for the last week with
coughing, the patient has been coughing before vomiting. He denies shortness of breath or any other URI symptoms. Denies chest pain, diarrhea with last BM about 4 days prior to arrival. In the ER he was febrile to 100.7 �F, pulse rate 99,
breathing at 18 breaths/minute, BP 76/53, and saturating 98% on room air. Initial labs showed mild leukocytosis to 11, Hb 15.3, platelets 444, potassium 6.1, serum bicarbonate level 16, creatinine 2.3, urinalysis with trace leukocyte esterase, and
random cortisol 6.5. CXR showed no acute cardiopulmonary disease, and CT abdomen/pelvis showed no acute abnormalities. In the ER he was given 1.5 L NS 0.9%, given a bolus of 3% NS, hydrocortisone 100 mg, 4 units IV regular insulin + 1 amp of D50,
and acetaminophen. He was admitted to the ICU due to hypotension with SBP in the 80s, and started on stress dose steroids. [employer] services consulted for additional management/recommendations.
When I saw the patient he was resting in bed, in no acute distress, saying that he feels much better, denying lightheadedness, shortness of breath, chest pain, abdominal pain, nausea, fevers or chills. Heart rate currently 106, BP 103/59 and he is
saturating 90% on room air.
PMHx: History of adrenal insufficiency/Lance's disease NOS, chronic abdominal pain, hypothyroidism, GERD, history of bilateral cataracts
PSHx: Non-contributory
Past Medical History
Past Medical History: Other (Above as per HPI)
Past Surgical History: Other (Above as per HPI)
Social History
Tobacco: Non-smoker
Alcohol: None
Drug: None
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
Family History
Family History: Cancer (Paternal grandfather: Lymphoma)
Allergies / Home Medications
Allergies
Allergy/AdvReac Type Severity Reaction Status Date / Time
grass pollen Allergy Unknown Verified 04/10/24 08:31
house dust Allergy Unknown Verified 04/10/24 08:31
pollen extracts Allergy Unknown Verified 04/10/24 08:31
tree and shrub pollen Allergy Unknown Verified 04/10/24 08:31
Home Medications
�Medication �Instructions �Recorded �Confirmed �Last Taken �Type
hydrocortisone 10 mg tablet 5 mg PO DAILY@1500 lance's 04/10/24 04/10/24 04/06/24 History
disease
hydrocortisone 10 mg tablet 10 mg PO DAILY@0700 lance's 04/10/24 04/10/24 04/06/24 History
disease
levothyroxine 50 mcg capsule 50 mcg PO DAILY Thyroid 04/10/24 04/10/24 04/10/24 History
Review of Systems
-
History Source: Patient
All other systems: Negative unless noted
Vitals / Labs / Diagnostic Testing
Vital Signs
Temp Pulse Resp BP Pulse Ox
97.5 F 99 21 105/52 98
04/10/24 16:06 04/10/24 18:15 04/10/24 18:15 04/10/24 18:15 04/10/24 18:15
Lab Data
04/10/24 08:22
04/10/24 16:20
Microbiology
04/10/24 08:49 Nasal Swab Influenza Types A & B (JORGE) - Final
Negative for Influenza A & B, NAAT
Negative results must be combined with clinical observations
and patient history.
Nucleic Acid Amplification test (NAAT)performed on the
[employer] platform.
Diagnostic Testing:
Physical Exam
-
HEENT: Normocephalic, Anicteric and Moist Mucous Membranes
Cardiovascular: S1/S2, Murmur (negative) and Peripheral Edema (negative)
Respiratory: Clear, Wheeze (negative), Rales (negative), Rhonchi (negative) and Non-Labored Respirations
GI: Soft, Non Distended, Non Tender and Normal Bowel Sounds
Neurology: AO x 3 and Tremors (negative)
Skin: Warm and Dry
General: Respiratory Distress (negative), Comfortable, Fever (negative), Chills (negative) and Good Appetite
Assessment
-
Assessment: 58-year-old male with a past medical history of adrenal insufficiency, chronic abdominal pain, hypothyroidism, GERD and bilateral cataracts who presented after passing out at home. He has a history of [place]'s disease diagnosed
approximately 7 years ago on chronic hydrocortisone. He was recently hospitalized here at [place] from 02/24 - 02/27/2024 and discharged home on hydrocortisone 15 mg daily. He did not feel his hydrocortisone since the start of this month and he
says that he has been meaning to. On the way to the hospital he was hypotensive with SBP in the 70s and he was given 750 cc of NS 0.9% by EMS. He has been vomiting about 3 days ago and has not been eating. His dad has been sick for the last week
with coughing, the patient has been coughing before vomiting. He denies shortness of breath or any other URI symptoms. Denies chest pain, diarrhea with last BM about 4 days prior to arrival. In the ER he was febrile to 100.7 �F, pulse rate 99,
breathing at 18 breaths/minute, BP 76/53, and saturating 98% on room air. Initial labs showed mild leukocytosis to 11, Hb 15.3, platelets 444, potassium 6.1, serum bicarbonate level 16, creatinine 2.3, urinalysis with trace leukocyte esterase, and
random cortisol 6.5. CXR showed no acute cardiopulmonary disease, and CT abdomen/pelvis showed no acute abnormalities. In the ER he was given 1.5 L NS 0.9%, given a bolus of 3% NS, hydrocortisone 100 mg, 4 units IV regular insulin + 1 amp of D50,
and acetaminophen. He was admitted to the ICU due to hypotension with SBP in the 80s, and started on stress dose steroids. [employer]rying [employer] Tender services consulted for additional management/recommendations.
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
Impression:
#Adrenal crisis likely due to hydrocortisone noncompliance in the setting of suspected viral gastritis/URI
#Leukocytosis
#Thrombocytosis likely reactive
#Hypochloremic, hyponatremia likely due to vomiting with reduced PO intake
#KASSIE
#Metabolic acidosis with increased anion gap
#Subclinical hypothyroidism
#History of adrenal insufficiency/[place]'s disease NOS
Plan:
- Continue with stress dose steroids
- He admits that he has not taken his hydrocortisone for the past week, approximately, and it was confirmed with pharmacy here that he had not filled his home hydrocortisone medications since after his last hospitalization, and this could be what
is leading to his current presentation
- Last hospitalization, his serum cortisol levels were WNL at 78.3 and adrenal insufficiency was doubtful at that time. However, he was discharged home on hydrocortisone and that would now make him dependent on this
- Continue synthroid
- Continue to trend sNa, [K] and sHCO3 levels
- treat hyperkalemia with temporizing measures if K>5.5 with insulin, D50 and lokelma; goal K 3.5-5.2
- Nephrology consulted and recs appreciated
- HCO3 gtt being started; check AM blood gas
- Although he is febrile, there is no suspected PNA based on clinical Sx and CXR, his UA is not impressive for a UTI, and he has Sx more consistent with a viral presentation with gastritis/URI
- ID consulted --> empiric Abx started
- Follow up blood Cx X2 collected
- If he remains stable by tomorrow and is afebrile then would consider stopping Abx altogether or do a short course
- Maintain SpO2 >90-94%
- Maintain MAP>65
- Replete electrolytes with K>4, Mg>2
- Maintain euglycemia with goal BG 140-180
- Trend H/H and transfuse if needed to keep Hb>7g/dL; keep plt>20k, unless there is concern for bleeding then keep plt>50k
- prn nebulized bronchodilators - not currently bronchospastic
- Incentive spirometer encouraged 10x per hour for at least 4 hrs a day
- DVT ppx: HSQ --> raise to q8hr
Total time spent today was 76 minutes for this encounter. Time includes reviewing laboratory test/imaging results, reviewing pertinent medical records, obtaining and reviewing medical history, performing an appropriate exam, ordering medications,
tests and procedures. Time also includes documentation of this encounter, coordinating patient care and communicating with other healthcare professionals. Total time does not include separately billed tests performed on this date of service.
Data:
CT abdomen/pelvis without contrast 04/10/2024:
1). No acute abnormalities
2). Prostatomegaly with prominent central calcifications
3). Minimal left pleural effusion and dependent atelectasis at the posterior lung bases
[2024-04-10] MEDS: UNASYN IV ×2 (16:43→22:31)
[2024-04-10 16:44] LABS: ALT (SGPT) 16 U/L (0-50); AST (SGOT) 20 U/L (17-59); Albumin 3.6 g/dl (3.5-5.0); Alkaline Phosphatase 74 U/L (38-126); Blood Urea Nitrogen 43 mg/dl (9-20); Calcium 8.7 mg/dl (8.4-10.2); Carbon Dioxide 13 mmol/L (22-30); Chloride 100 mmol/L (98-107); Estimated Creatinine Clearance 52 ml/min; Glucose 156 mg/dl (70-99); Potassium 6.4 mmol/L (3.5-5.1); Sodium 127 mmol/L (135-145); Total Bilirubin 1.1 mg/dl (0.2-1.3); Total Protein 6.2 g/dl (6.3-8.2)
--- NOTE | 2024-04-10 16:50 | PTCARENOTE ---
Pt arrived to floor from ED via stretcher. Transferred over to unit bed from stretcher by nursing. AAOx3. Generalized weakness. Pt stating 5/10 dull abdominal pain. States pain is within acceptable limits. SaO2 97% on room. Lungs clear to
auscultation. Sinus tach on radiation monitor. HR 90s - 100s. SBP 80s - 100s. MAP > 65 without pressors. Palpable peripheral pulses. Cachectic appearance. Pt states recent poor appetite. No nausea but 'discomfort' after eating bites of turkey
sandwich in ED. Mccain catheter in place draining yellow urine. Stage 2 B/L dorsal ankles covered with silicone border foam. Pt states injury is from his shoes.
--- NOTE | 2024-04-10 17:08 | W.PN.UPDATE ---
Update Note
Progress Note Update
Reviewed afternoon labs
Discontinue normal saline
We will finish hypertonic saline for 250 cc
Serum sodium rising appropriately
Will administer Lokelma 10 g 3 times daily for hyperkalemia
Will then add sodium bicarbonate 150 mill equivalents per liter of sterile water at 80 cc/h for metabolic acidosis and hyperkalemia
--- NOTE | 2024-04-10 17:34 | PTCARENOTE ---
Pt reassessed. Potassium resulted 6.4. Lokelma 10 gram TID started. New order for Sterile Water with Sodium Bicarbonate 150meq @ 80ml/hr. NSS stopped.
[2024-04-10] MEDS: LOKELMA 10 GRAM PO (18:07)
[2024-04-10] MEDS: SOLU-CORTEF 50 MG IV (18:07)
[2024-04-10 18:26] LABS: Glucose - Point of Care 148 mg/dl (70-99)
[2024-04-10] MEDS: SODIUM BICARBONATE 1150 MEQ IV (18:27)
--- NOTE | 2024-04-10 20:00 | PTCARENOTE ---
Rec'd pt resting comfortably GCS 15, JENSEN, pleasant/cooperative. Afebrile, VSS. Bicarb gtt as ordered. Will repeat labs at 2230. Will monitor.
[2024-04-10] MEDS: HEPARIN 5000 UNITS SC (22:32)
[2024-04-10 23:17] LABS: Blood Urea Nitrogen 32 mg/dl (9-20); Calcium 8.6 mg/dl (8.4-10.2); Carbon Dioxide 16 mmol/L (22-30); Chloride 100 mmol/L (98-107); Estimated Creatinine Clearance 79 ml/min; Glucose 148 mg/dl (70-99); Magnesium 1.8 mg/dl (1.6-2.3); Potassium 5.5 mmol/L (3.5-5.1); Sodium 129 mmol/L (135-145); eGFR > 60.00
[2024-04-11] VITALS (44 sets, daily range): BP systolic 96–122; BP diastolic 55–77; BMI 19.6
--- NOTE | 2024-04-11 00:30 | PTCARENOTE ---
No change in previous assessment. Pt resting comfortably. Labs sent and resulted.
[2024-04-11] MEDS: SOLU-CORTEF 50 MG IV ×4 (01:47→21:49)
--- NOTE | 2024-04-11 04:00 | PTCARENOTE ---
AM labs sent and resulted. Pt comfortable. Will monitor.
[2024-04-11] MEDS: UNASYN IV ×2 (04:21→10:59)
[2024-04-11 04:45] LABS: Hematocrit 35.6 % (39.0-52.0); Hemoglobin 13.1 g/dL (13.0-18.0); Mean Corp Hgb Conc. 36.8 g/dL (33.0-37.0); Mean Corpuscular Volume 86.8 fL (80.0-94.0); Mean Platelet Volume 9.8 fL (7.4-10.4); Platelet Count 381 10^3/uL (130-400); Red Cell Dist. Width 12.1 % (11.5-14.5); White Blood Cell Count 7.8 10^3/uL (4.8-10.8)
[2024-04-11 05:06] LABS: Blood Urea Nitrogen 27 mg/dl (9-20); Calcium 8.7 mg/dl (8.4-10.2); Carbon Dioxide 20 mmol/L (22-30); Chloride 96 mmol/L (98-107); Estimated Creatinine Clearance 87 ml/min; Glucose 126 mg/dl (70-99); Potassium 5.2 mmol/L (3.5-5.1); Sodium 129 mmol/L (135-145); eGFR > 60.00
[2024-04-11] MEDS: SYNTHROID 50 MCG PO (06:30)
[2024-04-11] MEDS: LOKELMA 10 GRAM PO (06:30)
--- NOTE | 2024-04-11 08:30 | PTCARENOTE ---
Assumed care of pt at 0715 following shift report. Pt awake and resting quietly in bed, watching TV. Denies c/o pain, SOB, nausea. Remains on RA w/ POx 98%. Mccain catheter patent and draining clear, pale yellow urine. Pt tolerating PO. IVF of
Sterile Water w/ 150meq HCO3 infusing at 80ml/hr as ordered. Physical assessment completed as documented. Pt sat at edge of bed to complete AM hygiene and then OOB to chair w/ supervision. Pt denies dizziness, SOB or pain w/ increased activity.
Sitting in chair, eating breakfast- pt encouraged to increase intake- poor appetite noted. Call jimenez w/in pt reach and safe environment maintained.
[2024-04-11] MEDS: HEPARIN 5000 UNITS SC (08:37)
[2024-04-11] MEDS: PROTONIX 40 MG PO (08:38)
[2024-04-11] MEDS: SODIUM BICARBONATE 1150 MEQ IV (09:51)
--- NOTE | 2024-04-11 10:20 | W.PN.HOSP.TC ---
Addendum entered and electronically signed by Aurora Whitt MD, Resident 04/11/24 18:43:
Response to CDI:
- Stage 2 left dorsal ankle pressure injury, POA
- Stage 2 right dorsal ankle pressure injury, POA
Addendum entered and electronically signed by Luis Fernando Kathleen MD 04/11/24 14:25:
Shock hypovolemic vs septic (source GI/Pulm) or even combined vs adrenal crisis
-Pressor support
-IVF
-Admit to ICU
-Initiate IV steroids with hydrocortisone IV q6
-GI Ppx
-Board sprectum IVAtb
-BCx
Non anion gap metabolic acidosis - resolved
-on bicarb gtt
-now likwly able to transition to NS(0.9)
-nephrology following
Hyponatremia
-Could be related to Adrenal crisis/Addisons disease
-UOsm/Rishi
-Nephrology following already started hypertonic fluid
-Repeat BMP in the evening
HyperK - resolved
KASSIE - resolved
Original Note:
Today's Communication/Plan
-
DC Unasyn
Downgrade to IMU
Will start tapering IV hydrocortisone tomorrow
Follow blood cultures
monitor BMP, VBG
Assessment / Plan
Assessment / Plan
58-year-old male with past medical history of [place]'s disease, hypothyroidism presenting after a syncope episode. Was found to have fever, persistent hypotension despite fluid therapy, KASSIE, hyperkalemia, hyponatremia and metabolic acidosis in ED.
#Possible Septic shock
SIRS POA
Blood culture x 2 sent-pending
COVID-negative, influenza negative
UA not active
Chest x-ray normal
Lactic acid level normal
ABD/pelvis CT scan: No obstructive uropathy, no diverticulitis
No evident source found for infection to date
Afebrile for the past 24 hours-Tylenol as needed for fever
Appreciate infectious disease-started empiric Unasyn on 04/10
Patient appears stabilized today after receiving IV hydrocortisone-Can D/C Unasyn
# Hypovolemic shock possibly in the setting of adrenal crisis
Admitted to ICU on 04/10-Physician Representative consulted
Patient has not required pressors during ICU admission-Can be downgraded to IMU today
Continue IV hydrocortisone 50 every 6 hours-will start to taper tomorrow with 15 IV every 6 hours
Fall precautions
No nausea or vomiting at this time-on regular diet-Zofran as needed
Checked random cortisol- normal; ACTH pending
Continue telemonitoring
Continue bedside glucose monitoring
Thrombocytosis POA likely in the setting of [id number]-ryad continue to monitor CBC daily
# KASSIE most likely in the setting of hypovolemia/adrenal crisis
Received insulin plus dextrose 50 in ED
Hyperkalemia improved this a.m-Received Lokelma 10 (x2) to date- give Lokelma as needed to keep K < 5.2
Metabolic acidosis w high anion gap-receiving bicarb 150 mEq/lit @80cc/h, current anion gap=13
Serum osmolality, urine osmolality and sodium within normal limits
Noted to have retention in the ED-Mccain placed
Appreciate nephrology recommendations-hyponatremia slowly improving
Anticipate to resolve following treatment with IV hydrocortisone
# DVT prophylaxis
Heparin 5000 SC every 8 hours
# GERD
Pantoprazole 40 daily
Full code
Anticipated Discharge: 24 - 48 hours
Subjective/Interval History
-
Date of Service: April 11, 2024
Patient is sitting comfortably in chair. Denies any lightheadedness, nausea, vomiting. Denies any loose stools. No shortness of breath, or coughing overnight. Mentions he has not been having much food because food gets stuck in his throat. He
has no problem with liquids (not new).
Objective Data
-
Labs:
Laboratory Results
12/05/24 12/06/24
22:38 04:20
WBC 7.8
Hgb 13.1
Hct 35.6 L
Plt Count 381
Sodium 129 L 129 L
Potassium 5.5 H 5.2 H
Chloride 100 96 L
Carbon Dioxide 16 L 20 L
BUN 32 H 27 H
Creatinine 1.0 0.9
Glucose 148 H 126 H
Calcium 8.6 8.7
Vital Signs:
Vital Signs
Temp Pulse Resp BP Pulse Ox
97.8 F 107 27 108/66 97
04/11/24 07:55 04/11/24 09:00 04/11/24 09:00 04/11/24 08:15 04/11/24 08:15
I&O
04/10/24 04/11/24 04/12/24
06:59 06:59 06:59
Intake Total 1890 / 1970 480 / 480
Output Total 2940 / 2940
Balance -1050 / -970 480 / 480
Review of Systems
-
History Source: Patient
All other systems: Reviewed and negative
Abdomen/GI: Reports Other (Dysphagia to solid food, okay with fluids)
Physical Exam
-
General: Well Developed, No Apparent Distress and Comfortable
HEENT: Normocephalic, Anicteric and Other (poor dental hygiene)
Respiratory: Clear to Auscultation and Non Labored Respirations
Cardiac: Regular Rhythm and S1/S2
GI: Soft, Nontender, Nondistended and Normal Bowel Sounds
Genito-urinary: Mccain
Musculoskeletal: No Clubbing, No Cyanosis and No Edema
Skin: Warm and Dry
Neuro: Awake, Alert, Oriented and AO x 3
Psych: Calm
--- NOTE | 2024-04-11 10:21 | W.PN.ID1 ---
Date of Service
Date of Service: April 11, 2024
Today's Communication
DC Unayn and observe.
Assessment / Plan
Adrenal Crisis
s/p Shock Most likely Hypovolemic
Fever x 1 resolved
Leukocytosis resolved
+/- resolving gastroenteritis
KASSIE
- blood cultures x2 neg to date
- CT a/p without contrast: no acute pathology, no evidence of diverticulitis
- UA without pyuria
- covid and influenza screens negative
-ACTH pending
- possibly viral cause of gastroenteritis with hypovolemia and secondary adrenal crisis, alternatively if he did not fill his medications, nausea and vomiting can be symptoms of adrenal crisis itself
- No infectious etiology identified.
DC Unasyn and observe.
Chief Complaint
-: Other (Nausea)
Subjective / Review of Systems
Nausea better. Still with poor po intake due to GI upset.
No diarrhea.
Vital Signs / Physical Exam
Vital Signs
Vital Signs
Temp Pulse Resp BP Pulse Ox
97.8 F 107 27 108/66 97
04/11/24 07:55 04/11/24 09:00 04/11/24 09:00 04/11/24 08:15 04/11/24 08:15
Physical Exam
Constitutional: No Acute Distress and Comfortable
Eyes: No Conjunctival Hemorrhage and Sclera Anicteric
Cardiovascular: Regular Rate and S1/S2
Pulmonary: Clear
Gastrointestinal: Soft, Non Tender, Non Distended and Normal Bowel Sounds
Extremities: Negative Edema
Neurological: AO x 3
Objective Data
Lab Data
Lab Results
04/11/24 04:20
04/11/24 04:20
Estimated Creat Clear 87 ml/min 04/11/24 04:20
Lactic Acid 1.2 mmol/L (0.7-2.0) 04/10/24 08:49
Lactic Acid Cancelled 04/10/24 08:49
Total Bilirubin 1.1 mg/dl (0.2-1.3) 04/10/24 16:20
AST 20 U/L (17-59) 04/10/24 16:20
ALT 16 U/L (0-50) 04/10/24 16:20
Alkaline Phosphatase 74 U/L (38-126) 04/10/24 16:20
Most recent labs reviewed.
Micro Results:
04/10/24 08:49 Blood Culture - Preliminary
Blood/Venous No Growth in 24 hours- Final report to follow
04/10/24 14:20 Blood Culture - Pending
Blood/Venous
04/10/24 08:49 Influenza Types A & B (JORGE) - Final
Nasal Swab Negative for Influenza A & B, NAAT
Negative results must be combined with clinical observations
and patient history.
Nucleic Acid Amplification test (NAAT)performed on the
[employer] platform.
04/10/24 CT a/p: No acute abnormalities. Prostatomegaly with prominent central calcifications. Minimal left pleural effusion and deep tendon atelectasis at the posterior lung bases
--- NOTE | 2024-04-11 11:13 | CON.MD ---
Consultation - Medical
-
Assessment: 58-year-old male with past medical history of adrenal insufficiency, chronic abdominal pain, distant, GERD, bilateral cataracts presented after syncopal episode at home. EMS was called and he was found to be hypotensive and route. 750
cc bolus was given. Patient noted that he had been sick for a week with a cough, then 3 days prior he had a 24-hour period of intense nausea and vomiting. Last episode of vomiting was 2 days prior and afterward he had not eaten much. He denies
any chest pain, heart palpitations, diarrhea or any other URI symptoms. His last bowel movement was about 4 days prior to arrival. In ED, temperature of 100.7, pulse rate of 99, breathing at 18, blood pressure 76/53 satting 98% on room air. K 6.1,
Cr 2.3, Bicarb 16, Na 123. In the ER he was given 1.5 L NS 0.9%, given a bolus of 3% NS, hydrocortisone 100 mg, 4 units IV regular insulin + 1 amp of D50, and acetaminophen. He was admitted to the ICU due to hypotension with SBP in the 80s, and
started on stress dose steroids. [employer] services consulted for additional management/recommendations.
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
Impression:
#Adrenal crisis likely due to hydrocortisone noncompliance in the setting of suspected viral gastritis/URI
#Leukocytosis
#Thrombocytosis likely reactive
#Hypochloremic, hyponatremia likely due to vomiting with reduced PO intake
#KASSIE
#Metabolic acidosis with increased anion gap
#Subclinical hypothyroidism
#History of adrenal insufficiency/Dorset's disease NOS
Physical Exam
General appears comfortable
Neuro: AAOx3
Respiratory: Clear bilateral vesicular breath sounds
Cardiac: S1, S2 regular rythma, no murmurs, rubs or gallops
GI: Normal bowel sounds, no tenderness with palpation, slight ab distension
Extremities: No peripheral edema, no rash
Plan:
Endocrine:
-Adrenal crisis -likely secondary to hydrocortisone noncompliance exacerbated by suspected viral gastritis/URI
- Stress dose steroids - 100 mg hydrocortisone bolus in ED at 8am followed by 50mg q6hr for first 24 hrs
- Start tapering today 15 mg q6hr
- Pt admits to not taking hydrocortisone for the past week - he said he ran out and was trying to get it refilled but was unable
- random cortisol 6.5, ACTH and aldosterone pending
- Last hospitalization serum cortisol levels 78.3 at 23:44 taken right after 100 mg bolus of hydrocortisone at 20:44 on 02/26/24. Subsequent random cortisol on 02/27/24 at 6:38am was 5.5. Unsure wether pt has true adrenal insufficiency. Continue
on steroids as now dependent, but advise pt to f/u outpatient.
-Hx hypothyroidism
- Continue synthroid
- TSH 8.69, free T4 1.2
Renal:
-Hypochloremic, hyponatremia likely secondary to vomiting with reduced oral intake
-Metabolic acidosis with increased anion gap
-AG 14 on admission - today 13
-Repeat VBG and BMP pending - will discontinue bicarb drip pending labs
-AM blood glass HCO3 20.5 -> 24.3 improving
-Hyperkalemia
-K 6.1 on admission started on insulin, D50 and lokelma with goal 3.5-5.2 - today 5.2 at goal
-Repeat BMP in afternoon - d/c lokelma pending K level
-KASSIE
-2.3 on admission -> 0.9 today - resolved
-Replace electrolytes as needed K>4 and mg >2
ID:
-Sepsis
- On admission, febrile, hypotensive, tachycardic, tachypneic WBC 11
- Started on emperic antibiotic therapy -> ID consult ->switch to unasyn
- now Afebrile, WBC wnl, U/A (-), Covid (-), flu (-), chest x-ray no acute cardiopulmonary findings, Blood cultures (-) to date
- N/V more consistent with acute viral gastritis
- Discontinue antibiotics per ID
Respiratory:
-Satting well on room air
-Maintian SpO2 >90-94%
Cardiovascular:
-Currently hemodynamically stable after fluid bolus and steroids
-Downgrade to tele
-Maintanence fluid while not eating
-Maintain MAP >65
GI:
-Hx Gerd, but not on any home meds - no ppx at this point
-Still has poor appetite, but does not complain of any N/V/Ab pain - maintenance fluids while nor oral intake
-Last bowel movement 5 days ago - pt not currently interested in laxitive. States he normally has a bowel movement every few days. Ab feels distended on exam. Monitor.
-Hx of chronic abdominal pain - often seen in pts with adrenal insufficiency - currently no complaints
Hemeonc:
-DVT Heparin Q8
-Transfuse for hg <7
-Thrombocytosis 444->381 today after fluids. Thrombocytosis likely secondary to fluid loss now resolved.
-Transfuse ptl <20 or if active bleed <50
Diagnostic imaging:
CT abdomen/pelvis without contrast 04/10/2024:
1). No acute abnormalities
2). Prostatomegaly with prominent central calcifications
3). Minimal left pleural effusion and dependent atelectasis at the posterior lung bases
--- NOTE | 2024-04-11 11:48 | W.PN.NEPH.PH ---
Today's Communication / Plan
-
see plan
Assessment/Plan
-
Impression:
Acute kidney injury
Hyponatremia
Metabolic acidosis
Hyperkalemia
Syncope
Hypothyroid
[place]chen[place]'s disease
Plan:
Hyponatremia and hyperkalemia likely from adrenal crisis
sodium improving and potassium better post LOkelam and IVF
met acidosis better with bicarb IVF
If repeat k is normal, hold LOkelma
likely adjust IVF to NS if acidosis resolved
KASSIE-cr improved to 0.9
BP stable on IV hydrocortisone
reviewed with pt about not to run out of the medication in future
could try VT and follow bladder scan-reportedly had retention on admit
d/w nursing and resident
-
-
Date of Service: April 11, 2024
CC / HPI / ROS
-
Chief Complaint:
KASSIE, hypoantremia, hyperkalemia
History of Present Illness:
sodium better at 129
k 5.2 better
met acidosis better bicarb at 20
BP stbale not on pressors , on IV hydrocortisone
Review of Systems:
no cp or sob
ran out of meds last Sunday
has hiccups
no n/v
Labs
-
Labs:
WBC 7.8 10^3/uL (4.8-10.8) 04/11/24 04:20
RBC 4.10 10^6/uL (4.70-6.10) L 04/11/24 04:20
Hgb 13.1 g/dL (13.0-18.0) 04/11/24 04:20
Hct 35.6 % (39.0-52.0) L 04/11/24 04:20
Plt Count 381 10^3/uL (130-400) 04/11/24 04:20
eGFR > 60.00 04/11/24 04:20
Albumin 3.6 g/dl (3.5-5.0) 04/10/24 16:20
Physical Exam
-
Vital Signs:
Vital Signs
Temp Pulse Resp BP Pulse Ox
98.4 F 107 27 108/66 97
04/11/24 11:37 04/11/24 09:00 04/11/24 09:00 04/11/24 08:15 04/11/24 08:15
Cardiovascular:: Regular rate and rhythm
Respiratory:: Bilateral: CTA
Lung Excursion:: Normal
Abdomen:: Nontender and Soft
Extremity Edema:: None: Bilateral:
Mccain Catheter: Yes
[2024-04-11 12:07] LABS: Venous Blood Gas B.E. -0.5 mmol/L (-4 to +4); Venous Blood Gas HCO3 24.2 mmol/L (22-27); Venous Blood Gas O2 Sat % 84.9 %; Venous Blood Gas pCO2 39 mmHg (35-48); Venous Blood Gas pO2 51 mmHg (30-50)
[2024-04-11 12:08] LABS: Venous Blood Gas O2 Therapy RA
--- NOTE | 2024-04-11 12:10 | PTCARENOTE ---
Pt returned to bed for lab draw and removal of Mccain catheter. No new complaints or changes from previous assessment findings.
[2024-04-11 12:29] LABS: Blood Urea Nitrogen 27 mg/dl (9-20); Calcium 8.5 mg/dl (8.4-10.2); Carbon Dioxide 24 mmol/L (22-30); Chloride 93 mmol/L (98-107); Estimated Creatinine Clearance 79 ml/min; Glucose 165 mg/dl (70-99); Magnesium 1.6 mg/dl (1.6-2.3); Phosphorus 3.4 mg/dl (2.5-4.5); Potassium 4.7 mmol/L (3.5-5.1); Sodium 126 mmol/L (135-145); eGFR > 60.00
--- NOTE | 2024-04-11 12:29 | W.PN.INTV ---
Today's Communication / Plan
Recommendations
Downgrade to telemetry
Steroid taper
Discontinue Lokelma
Discontinue bicarb drip
Assessment
-
Assessment: 58-year-old male with past medical history of adrenal insufficiency, chronic abdominal pain, distant, GERD, bilateral cataracts presented after syncopal episode at home. EMS was called and he was found to be hypotensive and route. 750
cc bolus was given. Patient noted that he had been sick for a week with a cough, then 3 days prior he had a 24-hour period of intense nausea and vomiting. Last episode of vomiting was 2 days prior and afterward he had not eaten much. He denies
any chest pain, heart palpitations, diarrhea or any other URI symptoms. His last bowel movement was about 4 days prior to arrival. In ED, temperature of 100.7, pulse rate of 99, breathing at 18, blood pressure 76/53 satting 98% on room air. K 6.1,
Cr 2.3, Bicarb 16, Na 123. In the ER he was given 1.5 L NS 0.9%, given a bolus of 3% NS, hydrocortisone 100 mg, 4 units IV regular insulin + 1 amp of D50, and acetaminophen. He was admitted to the ICU due to hypotension with SBP in the 80s, and
started on stress dose steroids. 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
Impression:
#Adrenal crisis likely due to hydrocortisone noncompliance in the setting of suspected viral gastritis/URI
#Leukocytosis
#Thrombocytosis likely reactive
#Hypochloremic, hyponatremia likely due to vomiting with reduced PO intake
#KASSIE
#Metabolic acidosis with increased anion gap
#Subclinical hypothyroidism
#History of adrenal insufficiency/[place]'s disease NOS
Plan:
Endocrine:
-Adrenal crisis -likely secondary to hydrocortisone noncompliance exacerbated by suspected viral gastritis/URI
- Stress dose steroids - 100 mg hydrocortisone bolus in ED at 8am followed by 50mg q6hr for first 24 hrs
- Start tapering today 15 mg q6hr
- Pt admits to not taking hydrocortisone for the past week - he said he ran out and was trying to get it refilled but was unable
- random cortisol 6.5, ACTH and aldosterone pending
- Last hospitalization serum cortisol levels 78.3 at 23:44 taken right after 100 mg bolus of hydrocortisone at 20:44 on 02/26/24. Subsequent random cortisol on 02/27/24 at 6:38am was 5.5. Unsure wether pt has true adrenal insufficiency. Continue
on steroids as now dependent, but advise pt to f/u outpatient.
-Hx hypothyroidism
- Continue synthroid
- TSH 8.69, free T4 1.2
Renal:
-Hypochloremic, hyponatremia likely secondary to vomiting with reduced oral intake
-Metabolic acidosis with increased anion gap
-AG 14 on admission - today 13
-Repeat VBG and BMP pending - will discontinue bicarb drip pending labs
-AM blood glass HCO3 20.5 -> 24.3 improving
-Hyperkalemia
-K 6.1 on admission started on insulin, D50 and lokelma with goal 3.5-5.2 - today 5.2 at goal
-Repeat BMP in afternoon - d/c lokelma pending K level
-KASSIE
-2.3 on admission -> 0.9 today - resolved
-Replace electrolytes as needed K>4 and mg >2
ID:
-Sepsis
- On admission, febrile, hypotensive, tachycardic, tachypneic WBC 11
- Started on emperic antibiotic therapy -> ID consult ->switch to unasyn
- now Afebrile, WBC wnl, U/A (-), Covid (-), flu (-), chest x-ray no acute cardiopulmonary findings, Blood cultures (-) to date
- N/V more consistent with acute viral gastritis
- Discontinue antibiotics per ID
Respiratory:
-Satting well on room air
-Maintian SpO2 >90-94%
Cardiovascular:
-Currently hemodynamically stable after fluid bolus and steroids
-Downgrade to tele
-Maintanence fluid while not eating
-Maintain MAP >65
GI:
-Hx Gerd, but not on any home meds - no ppx at this point
-Still has poor appetite, but does not complain of any N/V/Ab pain - maintenance fluids while nor oral intake
-Last bowel movement 5 days ago - pt not currently interested in laxitive. States he normally has a bowel movement every few days. Ab feels distended on exam. Monitor.
-Hx of chronic abdominal pain - often seen in pts with adrenal insufficiency - currently no complaints
Hemeonc:
-DVT Heparin Q8
-Transfuse for hg <7
-Thrombocytosis 444->381 today after fluids. Thrombocytosis likely secondary to fluid loss now resolved.
-Transfuse ptl <20 or if active bleed <50
Diagnostic imaging:
CT abdomen/pelvis without contrast 04/10/2024:
1). No acute abnormalities
2). Prostatomegaly with prominent central calcifications
3). Minimal left pleural effusion and dependent atelectasis at the posterior lung bases
Subjective Dataa
Subjective Data
Date of Service:
Date of Service: April 11, 2024
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
Review of Systems
General: Fever (n) and Chills (n)
Cardiopulmonary: Cough (n), Wheezing (n), Chest Pain (n) and Edema (n)
GI: Abdominal Pain (n), Nausea (n), Vomiting (n), Diarrhea (n) and Constipation (Last bowel movement 5 days ago )
Neuro: Headache (n), Dizziness (n) and Weakness (n)
Objective Data
Data Reviewed
Vital Signs / I&O / Oxygen:
Vital Signs
Temp Pulse Resp BP Pulse Ox
98.4 F 107 27 108/66 97
04/11/24 11:37 04/11/24 09:00 04/11/24 09:00 04/11/24 08:15 04/11/24 08:15
Intake and Output
04/10/24 04/11/24 04/12/24
06:59 06:59 06:59
Intake Total 1890 / 1970 840 / 840
Output Total 2940 / 2940 350 / 350
Balance -1050 / -970 490 / 490
SaO2 97
Physical Exam
General: Comfortable
Cardiovascular: S1-S2 and Regular Rhythm
Respiratory: Clear
GI: Soft, Distended (slight), Non Tender and Normal Bowel Sounds
Neurology: AO x 3
Skin: Warm
Labs/Micro/Reports
Lab Data
04/11/24 04:20
04/11/24 11:49
Microbiology
04/10/24 08:49 Blood/Venous Blood Culture - Preliminary
No Growth in 24 hours- Final report to follow
04/10/24 08:49 Nasal Swab Influenza Types A & B (JORGE) - Final
Negative for Influenza A & B, NAAT
Negative results must be combined with clinical observations
and patient history.
Nucleic Acid Amplification test (NAAT)performed on the
[employer] platform.
--- NOTE | 2024-04-11 12:37 | PTCARENOTE ---
TT to Dr Avery w/ lab BMP, Phos, Mag results. TT to Dr Cormier w/ results of VBG, BMP, Phos, Mag
--- NOTE | 2024-04-11 13:00 | PN.CDI ---
CDI
- -
CDI:
Physician Documentation Request
Admit Date: 04/10/24 11:57
Dear Doctor,
Please review the following and provide your response in the progress notes.
Clinical Indicators:
- RN skin assessments indicate:
- Stage 2 left dorsal ankle pressure injury, POA
- Stage 2 right dorsal ankle pressure injury, POA
Physician documentation of the type and location of wounds is required for compliant documentation. Based on the above clinical findings and your assessment, please provide the following in your progress note:
1. Location of the ulcer/wound, including laterality.
2. Type (etiology) of ulcer/wound:
- Diabetic ulcer
- Arterial (ischemic) ulcer
- Traumatic wound
- Venous stasis ulcer
- Pressure (decubitus) ulcer
- Non-healing surgical wound
- Other
- Unable to determine
Use of terms such as suspected, likely, concern for, or probable (associated with a specific diagnosis that is being evaluated, monitored, or treated as if it exists) are acceptable and can be coded in the inpatient setting, when documented at the
time of discharge.
Thank you,
Maria Riggs RN
CDI Specialist
Please use your independent medical judgment in providing your response.
*Source: National Pressure Ulcer Advisory Panel (NPUAP)
[2024-04-11] MEDS: MAGNESIUM OXIDE 500 MG PO (13:03)
[2024-04-11] MEDS: SODIUM CHLORIDE 3% 250 IV (13:30)
--- NOTE | 2024-04-11 13:46 | CM ---
CM following re: discharge planning.
Reviewed pt's chart, met with pt.
Pt is a 58 year old male, admitted with primary dx of Adrenal crisis
Pt reports he lives with father, stepmother, sister in law and a nephew in a 2SH, 2 steps to enter, has no children. 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 No DME, VN or SNF history.
PCP: Julieta Santos
Pharmacy: [facility].
D/C plan: home with anticipated no needs. Family to transport at discharge.
CM will follow with discharge plan updates as hospitalization progresses
[2024-04-11 16:17] LABS: Blood Urea Nitrogen 24 mg/dl (9-20); Calcium 8.3 mg/dl (8.4-10.2); Carbon Dioxide 25 mmol/L (22-30); Chloride 96 mmol/L (98-107); Estimated Creatinine Clearance 87 ml/min; Glucose 159 mg/dl (70-99); Potassium 4.6 mmol/L (3.5-5.1); Sodium 129 mmol/L (135-145); eGFR > 60.00
--- NOTE | 2024-04-11 17:02 | PTCARENOTE ---
Transfer report given to 'Analy BARNHART'. Pt to transfer to Rm [id number] via w/ personal belongings. No changes noted from previous assessment findings or new complaints received prior to transfer
[2024-04-11] MEDS: LOVENOX 40 MG SC (17:54)
--- NOTE | 2024-04-11 18:12 | PTCARENOTE ---
Received pt from ICU via WC; accompanied by Zuleyka BARNHART. Pt AAO x3, JENSEN well, able to transfer to bed with assist x1; sl unsteady; denies dizziness. VSS. Placed on telemetry:NSR/ST 90's. On room air- pulse ox 98%, no SOB noted. Abd soft, sl rounded.
Pt DTV @ 11:30 PM 9was straight- cathed in ICU prior to [facility] transfer). Afebrile; warm and dry; silicone foam dsgs intact to dorsal feet. IV 3% NSS @ 30 ml/hr infusing via Rt AC site without sx of infiltration. Pt oriented to [facility]; currently
resting comfortably. Will continue to monitor.
[2024-04-11 20:58] LABS: Blood Urea Nitrogen 23 mg/dl (9-20); Calcium 8.2 mg/dl (8.4-10.2); Carbon Dioxide 25 mmol/L (22-30); Chloride 97 mmol/L (98-107); Estimated Creatinine Clearance 87 ml/min; Glucose 134 mg/dl (70-99); Potassium 4.6 mmol/L (3.5-5.1); Sodium 128 mmol/L (135-145); eGFR > 60.00
[2024-04-12] VITALS (8 sets, daily range): BP systolic 94–113; BP diastolic 53–74; PULSE 83
[2024-04-12 02:27] LABS: Glucose - Point of Care 120 mg/dl (70-99)
[2024-04-12] MEDS: SYNTHROID 50 MCG PO (05:35)
[2024-04-12] MEDS: CORTEF 10 MG PO (05:59)
[2024-04-12 07:26] LABS: Glucose - Point of Care 106 mg/dl (70-99)
[2024-04-12 07:29] LABS: Hematocrit 33.7 % (39.0-52.0); Mean Corp Hgb Conc. 35.6 g/dL (33.0-37.0); Mean Corpuscular Hgb 31.8 pg (27.0-31.0); Mean Corpuscular Volume 89.4 fL (80.0-94.0); Mean Platelet Volume 9.7 fL (7.4-10.4); Platelet Count 313 10^3/uL (130-400); Red Blood Cell Count 3.77 10^6/uL (4.70-6.10); White Blood Cell Count 4.6 10^3/uL (4.8-10.8)
[2024-04-12 07:48] LABS: Blood Urea Nitrogen 19 mg/dl (9-20); Calcium 8.2 mg/dl (8.4-10.2); Carbon Dioxide 24 mmol/L (22-30); Chloride 98 mmol/L (98-107); Estimated Creatinine Clearance 98 ml/min; Glucose 101 mg/dl (70-99); Magnesium 1.8 mg/dl (1.6-2.3); Phosphorus 2.9 mg/dl (2.5-4.5); Potassium 4.2 mmol/L (3.5-5.1); Sodium 132 mmol/L (135-145); eGFR > 60.00
--- NOTE | 2024-04-12 09:28 | PTOTSP ---
Patient was I with all functional mobility today. He was able to negotiate a full flight of stairs with a reciprocal gait pattern as well as perform 2 curb steps without use of railing while maintaining balance. Patient also ambulated a total of
260 ft without an AD with independence. At this time, there are no skilled needs present and there will not be any anticipated needs at [facility]. Patient was encouraged to continue to access the bathroom as he normally would as long as he continues to
feel strong and asymptomatic. Encouraged to sit up for meals as well. At this time, will sign off. If situation changes, please reconsult.
[2024-04-12 11:21] LABS: Glucose - Point of Care 116 mg/dl (70-99)
--- NOTE | 2024-04-12 12:02 | W.PN.ID1 ---
Date of Service
Date of Service: April 12, 2024
Today's Communication
Observe off antibiotics.
Assessment / Plan
Adrenal Crisis
s/p Shock Most likely Hypovolemic
Fever x 1 resolved
Leukocytosis resolved
+/- resolving gastroenteritis
KASSIE
- blood cultures x2 neg to date
- CT a/p without contrast: no acute pathology, no evidence of diverticulitis
- UA without pyuria
- covid and influenza screens negative
-ACTH : pending
- No infectious etiology identified.
Observe off antibiotics.
Chief Complaint
-: Other (Nausea)
Subjective / Review of Systems
Review of Systems: No Fever, No Chills and No Nausea
Vital Signs / Physical Exam
Vital Signs
Vital Signs
Temp Pulse Resp BP Pulse Ox
97.8 F 76 18 99/53 98
04/12/24 11:34 04/12/24 11:34 04/12/24 11:34 04/12/24 11:34 04/12/24 11:34
Physical Exam
Constitutional: No Acute Distress, Comfortable and Non-toxic
Eyes: Sclera Anicteric
Pulmonary: Non Labored
Gastrointestinal: Non Distended
Neurological: Awake and Alert
Psychological: Calm
Objective Data
Lab Data
Lab Results
04/12/24 07:08
04/12/24 07:08
Estimated Creat Clear 98 ml/min 04/12/24 07:08
Lactic Acid 1.2 mmol/L (0.7-2.0) 04/10/24 08:49
Lactic Acid Cancelled 04/10/24 08:49
Total Bilirubin 1.1 mg/dl (0.2-1.3) 04/10/24 16:20
AST 20 U/L (17-59) 04/10/24 16:20
ALT 16 U/L (0-50) 04/10/24 16:20
Alkaline Phosphatase 74 U/L (38-126) 04/10/24 16:20
Most recent labs reviewed.
Micro Results:
04/10/24 08:49 Blood Culture - Preliminary
Blood/Venous No Growth in 48 hours- Final report to follow
04/10/24 14:20 Blood Culture - Preliminary
Blood/Venous No Growth in 24 hours- Final report to follow
04/10/24 08:49 Influenza Types A & B (JORGE) - Final
Nasal Swab Negative for Influenza A & B, NAAT
Negative results must be combined with clinical observations
and patient history.
Nucleic Acid Amplification test (NAAT)performed on the
[employer] platform.
04/10/24 CT a/p: No acute abnormalities. Prostatomegaly with prominent central calcifications. Minimal left pleural effusion and deep tendon atelectasis at the posterior lung bases
--- NOTE | 2024-04-12 13:03 | W.PN.HOSP.TC ---
Today's Communication/Plan
-
Assessment / Plan
Assessment / Plan
Adrenal crisis
-Noncomplaince with hydrocortisone at home as he ran out of med
-Resume home hydrocort, monitor bp while in patient
Unlikely bacterial/aspiration as etiology
-therefore, atb stopped
-ID following
-monitored off
if bp remains stable on home hydrocort today then will plan to dc home tomorrow.
Shock hypovolemic vs septic (source GI/Pulm) or even combined vs adrenal crisis
-Pressor support
-IVF
-Admit to ICU
-Initiate IV steroids with hydrocortisone IV q6
-GI Ppx
-Board sprectum IVAtb
-BCx
Non anion gap metabolic acidosis - resolved
d/p bicarb gtt
HyperK - resolved
KASSIE - resolved
Anticipated Discharge: 24 - 48 hours
Subjective/Interval History
-
Date of Service: April 12, 2024
seen an dexamined. no new compalints. no acute ovenright events
Objective Data
-
Labs:
Laboratory Results
04/12/24
07:08
WBC 4.6 L
Hgb 12.0 L
Hct 33.7 L
Plt Count 313
Sodium 132 L
Potassium 4.2
Chloride 98
Carbon Dioxide 24
BUN 19
Creatinine 0.8
Glucose 101 H
Calcium 8.2 L
Vital Signs:
Vital Signs
Temp Pulse Resp BP Pulse Ox
97.8 F 76 18 99/53 98
04/12/24 11:34 04/12/24 11:34 04/12/24 11:34 04/12/24 11:34 04/12/24 11:34
I&O
04/11/24 04/12/24 04/13/24
06:59 06:59 06:59
Intake Total 0 / 1970 1410 / 1410
Output Total 2940 / 2940 1050 / 1050
Balance -1050 / -970 360 / 360
--- NOTE | 2024-04-12 15:30 | PTCARENOTE ---
Pt ambulated to the bathroom at this time and his HR was up to 140s, asymptomatic. HR 80s once at rest. BP 103/63. Dr. Luis Fernando Kathleen aware.
[2024-04-12] MEDS: CORTEF 5 MG PO (15:55)
[2024-04-12 16:48] LABS: Glucose - Point of Care 126 mg/dl (70-99)
--- NOTE | 2024-04-12 17:02 | W.PN.NEPH.PH ---
Today's Communication / Plan
-
observe, off IVF
Assessment/Plan
-
Impression:
Acute kidney injury
Hyponatremia
Metabolic acidosis
Hyperkalemia
Syncope
Hypothyroid
[place]'s disease
Plan:
Hyponatremia and hyperkalemia likely from adrenal crisis
sodium improving now off IVF
met acidosis resolved
KASSIE-cr improved to 0.8
BP stable on Po hydrocortisone
reviewed with pt about not to run out of the medication in future
requiring SC , monitor bladder scan
f/u Endo after d/c
-
-
Date of Service: April 12, 2024
CC / HPI / ROS
-
Chief Complaint:
KASSIE, hypoantremia, hyperkalemia
History of Present Illness:
sodium better at 132
k 4.2 better
met acidosis better bicarb at 24
BP stbale on PO hydrocortisone
Review of Systems:
no cp or sob
ran out of meds last Sunday
no n/v
Labs
-
Labs:
WBC 4.6 10^3/uL (4.8-10.8) L 04/12/24 07:08
RBC 3.77 10^6/uL (4.70-6.10) L 04/12/24 07:08
Hgb 12.0 g/dL (13.0-18.0) L 04/12/24 07:08
Hct 33.7 % (39.0-52.0) L 04/12/24 07:08
Plt Count 313 10^3/uL (130-400) 04/12/24 07:08
Sodium 132 mmol/L (135-145) L 04/12/24 07:08
Potassium 4.2 mmol/L (3.5-5.1) 04/12/24 07:08
Chloride 98 mmol/L (98-107) 04/12/24 07:08
Carbon Dioxide 24 mmol/L (22-30) 04/12/24 07:08
BUN 19 mg/dl (9-20) 04/12/24 07:08
Creatinine 0.8 mg/dL (0.7-1.3) 04/12/24 07:08
eGFR > 60.00 04/12/24 07:08
Glucose 101 mg/dl (70-99) H 04/12/24 07:08
Calcium 8.2 mg/dl (8.4-10.2) L 04/12/24 07:08
Phosphorus 2.9 mg/dl (2.5-4.5) 04/12/24 07:08
Albumin 3.6 g/dl (3.5-5.0) 04/10/24 16:20
Physical Exam
-
Vital Signs:
Vital Signs
Temp Pulse Resp BP Pulse Ox
97.4 F 77 18 103/60 98
04/12/24 15:20 04/12/24 15:20 04/12/24 15:20 04/12/24 15:20 04/12/24 15:20
Cardiovascular:: Regular rate and rhythm
Respiratory:: Bilateral: CTA
Lung Excursion:: Normal
Abdomen:: Nontender and Soft
Extremity Edema:: None: Bilateral:
Mccain Catheter: No
[2024-04-12] MEDS: LOVENOX 40 MG SC (17:46)
[2024-04-12 19:21] LABS: Adrenocorticotropic Hormone 46.7 pg/mL (7.2-63.3)
[2024-04-12 21:37] LABS: Glucose - Point of Care 107 mg/dl (70-99)
[2024-04-13] VITALS (7 sets, daily range): BP systolic 89–110; BP diastolic 57–71
[2024-04-13] MEDS: SYNTHROID 50 MCG PO (06:02)
[2024-04-13] MEDS: CORTEF 10 MG PO (06:02)
[2024-04-13 06:58] LABS: Hematocrit 34.6 % (39.0-52.0); Hemoglobin 12.2 g/dL (13.0-18.0); Mean Corp Hgb Conc. 35.3 g/dL (33.0-37.0); Mean Corpuscular Hgb 31.8 pg (27.0-31.0); Mean Corpuscular Volume 90.1 fL (80.0-94.0); Platelet Count 325 10^3/uL (130-400); Red Blood Cell Count 3.84 10^6/uL (4.70-6.10); Red Cell Dist. Width 12.1 % (11.5-14.5); White Blood Cell Count 4.8 10^3/uL (4.8-10.8)
[2024-04-13 08:02] LABS: Glucose - Point of Care 90 mg/dl (70-99)
[2024-04-13 09:41] LABS: Blood Urea Nitrogen 16 mg/dl (9-20); Calcium 8.5 mg/dl (8.4-10.2); Carbon Dioxide 22 mmol/L (22-30); Chloride 98 mmol/L (98-107); Estimated Creatinine Clearance 98 ml/min; Glucose 116 mg/dl (70-99); Sodium 130 mmol/L (135-145); eGFR > 60.00
[2024-04-13 12:12] LABS: Glucose - Point of Care 110 mg/dl (70-99)
--- NOTE | 2024-04-13 13:21 | W.PN.HOSP.TC ---
Today's Communication/Plan
-
dc home
More than 30 minutes spent in discharge including
Final examination of the patient
Summarizing hospital stay
Instructions for continuing care to all relevant caregivers
Preparation of discharge records, prescriptions, and referral forms
Total time spent (in minutes): 33mins
Assessment / Plan
Assessment / Plan
Adrenal crisis
-Noncomplaince with hydrocortisone at home as he ran out of med
-Resume home hydrocort, monitor bp while in patient
Unlikely bacterial/aspiration as etiology
-therefore, atb stopped
-ID following
-monitored off
if bp remains stable on home hydrocort today then will plan to dc home tomorrow.
Shock hypovolemic vs septic (source GI/Pulm) or even combined vs adrenal crisis
-Pressor support
-IVF
-Admit to ICU
-Initiate IV steroids with hydrocortisone IV q6
-GI Ppx
-Board sprectum IVAtb
-BCx
Non anion gap metabolic acidosis - resolved
d/p bicarb gtt
HyperK - resolved
KASSIE - resolved
Anticipated Discharge: Today
Subjective/Interval History
-
Date of Service: April 13, 2024
seen and exmained
no complaints
tolerating diet well
no nv
moving bowel and urinating well
Objective Data
-
Labs:
Laboratory Results
04/13/24 12
06:16 09:03
WBC 4.8
Hgb 12.2 L
Hct 34.6 L
Plt Count 325
Sodium 130 L
Potassium 4.0
Chloride 98
Carbon Dioxide 22
BUN 16
Creatinine 0.8
Glucose 116 H
Calcium 8.5
Vital Signs:
Vital Signs
Temp Pulse Resp BP Pulse Ox
98.1 F 75 18 105/64 100
04/13/24 12:28 04/13/24 12:28 04/13/24 12:28 04/13/24 12:28 04/13/24 12:28
I&O
04/12/24 04/13/24 04/14/24
06:59 06:59 06:59
Intake Total 1410 / 1410 720 / 720
Output Total 1050 / 1050
Balance 360 / 360 720 / 720
--- NOTE | 2024-04-13 13:22 | W.DCSUMMARY ---
Discharge Summary
Discharge Data
Date of Admission: 04/10/24
Date of Discharge: 04/13/24
-
Pending Results: No
Hospital Course
58 M hx of haily disease and hypothyroidism who presented after fall at home with associated lightheadedness and nausea vomiting. It was eventually discovered that he had run out of his hydrocortisone and had not taken it for close to a week. He
was started on antibiotics to cover for potential infectious process for which antibiotics for discontinued. He was started on stress dose steroids and weaned to home cortisone as tolerated. He was seen by ID and Critical care. He now understands
the importance of hydrocortisone and will be discharge home with pcp and endocrinology follow up.
Discharge Plan
-
Patient Disposition: Home (Routine Discharge)
Discharge Diagnosis/Procedures: Adrenal Crisis from noncompliance with medication
Condition: Fair
Diet: As tolerated
Activity: As tolerated
Referrals:
Julieta Santos, DO [Family Provider] -
Additional Discharge Medication Instructions: Cannot miss a dose of hydrocortisone. You need to follow up with your jewelry salesperson.
CXR
IMPRESSION:
No active cardiopulmonary disease.
CTAP
IMPRESSION:
1). No acute abnormalities
2). Prostatomegaly with prominent central calcifications
3). Minimal left pleural effusion and deep tendon atelectasis at the posterior lung bases
Prescriptions:
Continued
hydrocortisone 10 mg tablet
10 mg PO DAILY@0700 30 Days Qty: 30 0RF
hydrocortisone 10 mg tablet
5 mg PO DAILY@1500 30 Days Qty: 30 0RF
levothyroxine 50 mcg capsule
50 mcg PO DAILY Qty: 30 0RF
Discharge Orders:
Discharge Patient (As Directed); Ordered 04/13/24
Ordered By: Luis Fernando Kathleen
Discharge Date and Time
Print Language: [id number]
--- NOTE | 2024-04-13 14:00 | PTCARENOTE ---
Made Dr. Luis Fernando Kathleen aware that pt has been having tachycardia (130s-140s) when ambulating just to the bathroom. Pt has been asymptomatic and once at rest, HR 70s-80s, Sinus Rhythm. Dr. Kathleen cancelling discharge for today and ordering IVF.
Updated pt on plan, will monitor.
--- NOTE | 2024-04-13 15:06 | W.PN.NEPH.PH ---
Today's Communication / Plan
-
ok for d/c
Assessment/Plan
-
Impression:
Acute kidney injury
Hyponatremia
Metabolic acidosis
Hyperkalemia
Syncope
Hypothyroid
Merrick's disease
Plan:
Hyponatremia and hyperkalemia likely from adrenal crisis
sodium slightly down 130
met acidosis stable
KASSIE-cr improved to 0.8
BP stable on Po hydrocortisone
reviewed with pt about not to run out of the medication in future
BMP this week with PCP
f/u Endo after d/c
-
-
Date of Service: April 13, 2024
CC / HPI / ROS
-
Chief Complaint:
KASSIE, hypoantremia, hyperkalemia
History of Present Illness:
sodium slightly down 130
\\met acidosis, bicarb at 22
BP stbale on PO hydrocortisone
Review of Systems:
no cp or sob
ran out of meds last Sunday
no n/v
Labs
-
Labs:
WBC 4.8 10^3/uL (4.8-10.8) 04/13/24 06:16
RBC 3.84 10^6/uL (4.70-6.10) L 04/13/24 06:16
Hgb 12.2 g/dL (13.0-18.0) L 04/13/24 06:16
Hct 34.6 % (39.0-52.0) L 04/13/24 06:16
Plt Count 325 10^3/uL (130-400) 04/13/24 06:16
Sodium 130 mmol/L (135-145) L 04/13/24 09:03
Potassium 4.0 mmol/L (3.5-5.1) 04/13/24 09:03
Chloride 98 mmol/L (98-107) 04/13/24 09:03
Carbon Dioxide 22 mmol/L (22-30) 04/13/24 09:03
BUN 16 mg/dl (9-20) 04/13/24 09:03
Creatinine 0.8 mg/dL (0.7-1.3) 04/13/24 09:03
eGFR > 60.00 04/13/24 09:03
Glucose 116 mg/dl (70-99) H 04/13/24 09:03
Calcium 8.5 mg/dl (8.4-10.2) 04/13/24 09:03
Phosphorus 2.9 mg/dl (2.5-4.5) 04/12/24 07:08
Albumin 3.6 g/dl (3.5-5.0) 04/10/24 16:20
Physical Exam
-
Vital Signs:
Vital Signs
Temp Pulse Resp BP Pulse Ox
98.1 F 75 18 105/64 100
04/13/24 12:28 04/13/24 12:28 04/13/24 12:28 04/13/24 12:28 04/13/24 12:28
Cardiovascular:: Regular rate and rhythm
Respiratory:: Bilateral: CTA
Lung Excursion:: Normal
Abdomen:: Nontender and Soft
Extremity Edema:: None: Bilateral:
Mccain Catheter: No
[2024-04-13] MEDS: NSS 1000 IV (16:03)
[2024-04-13] MEDS: CORTEF 5 MG PO (16:04)
[2024-04-13 16:58] LABS: Glucose - Point of Care 127 mg/dl (70-99)
--- NOTE | 2024-04-13 17:53 | PTCARENOTE ---
Pt's BP at 1600 89/62, asymptomatic. Rechecked BP, 110/65 on reassessment, will monitor.
[2024-04-13] MEDS: LOVENOX 40 MG SC (17:54)
[2024-04-13 21:08] LABS: Glucose - Point of Care 123 mg/dl (70-99)
[2024-04-14 03:35] VITALS: BP 105/66
[2024-04-14] MEDS: SYNTHROID 50 MCG PO (06:18)
[2024-04-14] MEDS: CORTEF 10 MG PO (06:18)
[2024-04-14 06:53] VITALS: BP 98/62
[2024-04-14 07:15] LABS: Glucose - Point of Care 94 mg/dl (70-99)
--- NOTE | 2024-04-14 08:53 | CM ---
CM continues to follow for discharge needs. Anticipate discharge to home today with no needs. Family will drive him home at discharge.
Plan: Home today with no needs
--- NOTE | 2024-04-14 09:40 | VATNOTE ---
Called to assess pt's IV site as it was occluding and setting off the IV pump alarm. Pt states new #20 protective in his L antecubital fossa was started over night d/t pain at the IV site in his R antecubital fossa. Upon assessment pt has both IV
sites. Removed painful IV from his R antecubital fossa and new IV started in his R arm at this time. Undocumented #20p in his R antecubital fossa removed at this time also. Fluids connected to new IV and fluids restarted without issue.
--- NOTE | 2024-04-14 10:19 | W.PN.HOSP.TC ---
Today's Communication/Plan
-
DC IV fluids
Stable for discharge today
Assessment / Plan
Assessment / Plan
58-year-old male presenting after a syncope episode. Was found to have fever, persistent hypotension despite fluid therapy, KASSIE, hyperkalemia, hyponatremia and metabolic acidosis in ED.
Chronic conditions prior to admission
Lance's disease
Hypothyroidism
#Possible Septic shock
SIRS POA
Blood culture x 2 sent-no growth after 72 hours
COVID-negative, influenza negative
UA not active
Chest x-ray normal
Lactic acid level normal
ABD/pelvis CT scan: No obstructive uropathy, no diverticulitis
No evident source found for infection to date
Has remained afebrile since admission-leukocytosis resolved
Appreciate infectious disease-started empiric Unasyn on 04/10- d/c ed on 04/11 as patient appeared stable after receiving IV hydrocortisone
# Hypovolemic shock possibly in the setting of adrenal crisis
Patient apparently ran out of hydrocortisone
Admitted to ICU on 04/10-[employer] Yard Worker consulted
Did not require pressors during ICU admission-was downgraded to tele on 04/11
Blood pressure mostly controlled with home-dose hydrocortisone
Occasional tachycardia with exertion
No nausea or vomiting at this time-on regular diet-was able to tolerate breakfast
No dizziness/lightheadedness
Random cortisol and ACTH within normal limits
D/C telemonitoring
Bedside glucose monitoring
Thrombocytosis POA likely in the setting of dehydration-resolved
Can D/C IV fluids
# KASSIE most likely in the setting of hypovolemia/adrenal crisis-Now resolved
Received insulin plus dextrose 50 in ED
Hyperkalemia improved after Lokelma 10 (x2)
Metabolic acidosis w high anion msy-[id number]-hrh bicarb drip since 04/11
Serum osmolality, urine osmolality and sodium within normal limits
Adán d/c ed
Appreciate nephrology recommendations-hyponatremia improved-cleared for D/C
# DVT prophylaxis
Lovenox 40 HS
Full code
Anticipated Discharge: Today
Subjective/Interval History
-
Date of Service: April 14, 2024
Patient states he is feeling well. No nausea or vomiting. Is able to tolerate solids and liquids without any problems. Has not noticed any lightheadedness/dizziness.
Objective Data
-
Vital Signs:
Vital Signs
Temp Pulse Resp BP Pulse Ox
97.9 F 86 16 98/62 99
04/14/24 06:53 04/14/24 06:53 04/14/24 06:53 04/14/24 06:53 04/14/24 09:03
I&O
04/13/24 04/14/24 04/15/24
06:59 06:59 06:59
Intake Total 720 / 720 1080 / 1080
Balance 720 / 720 1080 / 1080
Review of Systems
-
History Source: Patient
All other systems: Reviewed and negative
Physical Exam
-
General: Well Developed, No Apparent Distress and Comfortable
HEENT: Normocephalic, Moist Mucous Membranes and Anicteric
Respiratory: Clear to Auscultation and Non Labored Respirations
Cardiac: Regular Rhythm and S1/S2
GI: Soft, Nontender, Nondistended and Normal Bowel Sounds
Musculoskeletal: No Clubbing, No Cyanosis and No Edema
Skin: Warm and Dry
Neuro: Awake, Alert, Oriented and AO x 3
--- NOTE | 2024-04-14 10:30 | W.PN.UPDATE ---
Update Note
Progress Note Update
I saw and evaluated the patient. I reviewed the resident�s note and agree with findings and plan as documented in the resident�s note.
No acute complaints.
Gen: NAD, AAOx3, appears chronically ill malnourished.
Eyes: EOMI, PERRLA, no scleral icterus.
Neck: supple.
CV: Tachycardic, regular rhythm, +S1/S2, no m/r/g.
Resp: CTAB, no rales, wheezes, or rhonchi.
Abd: +BS, soft, NT, ND
Skin: No rashes.
Neuro: CN 2-12 intact, non-focal.
Psych: Normal mood and affect.
CXR: No active cardiopulmonary disease.
CT A/P: No acute abnormalities. Prostatomegaly with prominent central calcifications. Minimal left pleural effusion and deep tendon atelectasis at the posterior lung bases.
Adrenal crisis, Monroe's disease:
-due to noncompliance with hydrocortisone at home as he ran out of med
-also in the setting of viral gastritis/URI
-was on IV Hydrocortisone, now off
-PO Hydrocortisone restarted
-In retrospect, shock on admission was likely due to addisonian crisis and hypovolemia. No source of infection was identified. The patient was on broad-spectrum antibiotics which have been stopped.
Tachycardia:
-Review of telemetry shows sinus tachycardia. The patient's discharge was held yesterday due to this. Recent systolic blood pressures 90s to 100s.
-check echocardiogram and consult cardiology.
Other problems:
Hypothyroidism: cont Levoxyl
KASSIE and non-AG metabolic acidosis: resolved with IVFs with bicarb
Hyperkalemia, resolved
Hyponatremia, mild
FULL/Lovenox
Total time spent on today's encounter was 50 minutes which included time spent in counseling the patient/family regarding diagnosis and treatment plan as listed above, goals of care, and symptom management. Case was discussed with nursing staff,
specialists, and care coordinators/case management. All labs and imaging personally reviewed by me. Remainder the time spent in detailed review of previous records, lab data, imaging, and other medical provider documentation.
[2024-04-14] MEDS: NSS 1000 IV (10:45)
[2024-04-14 11:44] VITALS: BP 103/74
[2024-04-14 12:36] LABS: Glucose - Point of Care 92 mg/dl (70-99)
[2024-04-14] MEDS: CORTEF 5 MG PO (14:44)
[2024-04-14 15:28] VITALS: BP 136/74
--- NOTE | 2024-04-14 15:51 | PTCARENOTE ---
Pt AAO x3, JENSEN well, OOB to BR with minimal assistance; denies weakness/dizziness; sl unsteady @ times w/OOB activity. VSS. Telemetry:NSR/sinus tach to 130's with OOB activity; pt denies palpitations/discomfort. On room air- pulse ox 98%, no SOB
noted. Abd soft, miryam PO well. Voiding in BR without difficulty. IVF's NSS @ 60 ml/hr infusing via Rt forearm site without sx of infiltration. Resting comfortably at present. Will continue to monitor.
[2024-04-14 17:39] LABS: Glucose - Point of Care 103 mg/dl (70-99)
[2024-04-14] MEDS: LOVENOX 40 MG SC (18:37)
[2024-04-14 18:53] LABS: Aldosterone, Serum <3.0 ng/dL
[2024-04-14 19:55] VITALS: BP 108/65
[2024-04-14 21:31] LABS: Glucose - Point of Care 114 mg/dl (70-99)
[2024-04-14 23:52] VITALS: BP 97/59
[2024-04-15 03:56] VITALS: BP 97/60
[2024-04-15] MEDS: SYNTHROID 50 MCG PO (06:06)
[2024-04-15] MEDS: CORTEF 10 MG PO (06:06)
[2024-04-15 07:58] LABS: Glucose - Point of Care 93 mg/dl (70-99)
[2024-04-15 08:57] VITALS: BP 98/63
--- NOTE | 2024-04-15 09:41 | W.PN.HOSP.TC ---
Today's Communication/Plan
-
Discharge
Assessment / Plan
Assessment / Plan
58-year-old male presenting after a syncope episode. Was found to have fever, persistent hypotension despite fluid therapy, KASSIE, hyperkalemia, hyponatremia and metabolic acidosis in ED.
Chronic conditions prior to admission
Lance's disease
Hypothyroidism
#Possible Septic shock
SIRS POA
Blood culture x 2 sent: no growth after 4 days
Urine culture: Staph epidermis and mixed tavares;, possibly contamination
COVID-negative, influenza negative
UA not active
Chest x-ray normal
Lactic acid level normal
ABD/pelvis CT scan: No obstructive uropathy, no diverticulitis
No evident source found for infection to date
Has remained afebrile since admission-leukocytosis resolved
Appreciate infectious disease-started empiric Unasyn on 04/10- d/c ed on 04/11 as patient appeared stable after receiving IV hydrocortisone-ID signed off
# Hypovolemic shock possibly in the setting of adrenal crisis
Patient apparently ran out of hydrocortisone at home
Admitted to ICU on 04/10-General Utility Worker consulted
Did not require pressors during ICU admission-was downgraded to tele on 04/11
Blood pressure maintained with home-dose hydrocortisone
Occasional tachycardia with exertion
No nausea or vomiting at this time-on regular diet-was able to tolerate breakfast
No dizziness/lightheadedness
Random cortisol and ACTH within normal limits
D/C telemonitoring
Bedside glucose monitoring
Thrombocytosis POA likely in the setting of dehydration-resolved
Can D/C IV fluids
# KASSIE most likely in the setting of hypovolemia/adrenal crisis-Now resolved
Received insulin plus dextrose 50 in ED
Hyperkalemia improved after Lokelma 10 (x2)- last dose 04/10
Metabolic acidosis w high anion [id number] bicarb drip since 04/11
Serum osmolality, urine osmolality and sodium within normal limits
Mccain d/c ed
Appreciate nephrology recommendations-hyponatremia improved-cleared for D/C
# Tachycardia on telemetry
Patient is asymptomatic
2D echo (04/14/24):
1. Normal left ventricular size and systolic function without regional wall motion abnormalities. Mild concentric left ventricular hypertrophy. Estimated left ventricular ejection fraction is 55 to 60% by visual estimation. Normal diastolic
function.
2. Normal right ventricular size and systolic function.
3. No significant valvular abnormalities.
4. No significant pericardial effusion.
# DVT prophylaxis
Lovenox 40 HS
Full code
Anticipated Discharge: Today
Subjective/Interval History
-
Date of Service: April 15, 2024
Patient does not have any complaints.
Objective Data
-
Vital Signs:
Vital Signs
Temp Pulse Resp BP Pulse Ox
97.8 F 83 16 98/63 98
04/15/24 08:57 04/15/24 08:57 04/15/24 08:57 04/15/24 08:57 04/15/24 08:57
I&O
04/14/24 04/15/24 04/16/24
06:59 06:59 06:59
Intake Total 1080 / 1080 2100 / 2100
Balance 1080 / 1080 2100 / 2100
Review of Systems
-
History Source: Patient
All other systems: Reviewed and negative
Physical Exam
-
General: Well Developed, No Apparent Distress and Comfortable
HEENT: Normocephalic, Moist Mucous Membranes and Anicteric
Respiratory: Clear to Auscultation and Non Labored Respirations
Cardiac: Regular Rhythm, S1/S2 and Tachycardic (Negative)
GI: Soft, Nontender, Nondistended and Normal Bowel Sounds
Musculoskeletal: No Clubbing, No Cyanosis and No Edema
Skin: Warm and Dry
Neuro: Awake, Alert, Oriented and AO x 3
--- NOTE | 2024-04-15 10:38 | W.PN.ID1 ---
Date of Service
Date of Service: April 15, 2024
Today's Communication
- UA without pyuria; urine culture s epi and mixed tavares - asymptomatic bacturia, doesnt require treatment
Remains well off antibiotics.
ID service will no longer actively follow this patient please recall for further questions
Assessment / Plan
Adrenal Crisis
s/p Shock Most likely Hypovolemic
Fever x 1 resolved
Leukocytosis resolved
+/- resolving gastroenteritis
KASSIE
- blood cultures x2 neg to date
- CT a/p without contrast: no acute pathology, no evidence of diverticulitis
- UA without pyuria; urine culture s epi and mixed tavares - asymptomatic bacturia, doesnt require treatment
- covid and influenza screens negative
- No infectious etiology identified.
Remains well off antibiotics.
ID service will no longer actively follow this patient please recall for further questions
Chief Complaint
-: Other (Nausea)
Subjective / Review of Systems
afebrile
bp stable
tachycardia resolved
had normal echo last night
no complaints
no dyrusia, suprapubic tenderness, urgency or frequency
Vital Signs / Physical Exam
Vital Signs
Vital Signs
Temp Pulse Resp BP Pulse Ox
97.8 F 83 16 98/63 98
04/15/24 08:57 04/15/24 08:57 04/15/24 08:57 04/15/24 08:57 04/15/24 08:57
Physical Exam
Constitutional: No Acute Distress
Cardiovascular: Regular Rate and S1/S2; Negative Murmur or Rub
Pulmonary: Clear and Symmetric; Negative Wheezes or Rales
Gastrointestinal: Soft, Non Tender, Non Distended and Normal Bowel Sounds
Genito-Urinary: Negative Suprapubic Tenderness
Skin: Warm and Dry; Negative Rash or Jaundice
Objective Data
Lab Data
Lab Results
04/13/24 06:16
04/13/24 09:03
Estimated Creat Clear 98 ml/min 04/13/24 09:03
Lactic Acid 1.2 mmol/L (0.7-2.0) 04/10/24 08:49
Lactic Acid Cancelled 04/10/24 08:49
Total Bilirubin 1.1 mg/dl (0.2-1.3) 04/10/24 16:20
AST 20 U/L (17-59) 04/10/24 16:20
ALT 16 U/L (0-50) 04/10/24 16:20
Alkaline Phosphatase 74 U/L (38-126) 04/10/24 16:20
Most recent labs reviewed.
Micro Results:
04/10/24 08:49 Blood Culture - Final
Blood/Venous No Growth - Final Report
04/10/24 14:20 Blood Culture - Preliminary
Blood/Venous No Growth in 4 days- Final report to follow
04/10/24 08:49 Influenza Types A & B (JORGE) - Final
Nasal Swab Negative for Influenza A & B, NAAT
Negative results must be combined with clinical observations
and patient history.
Nucleic Acid Amplification test (NAAT)performed on the
[employer] platform.
[2024-04-15 11:52] LABS: Glucose - Point of Care 116 mg/dl (70-99)
[2024-04-15 11:59] VITALS: BP 99/63
--- NOTE | 2024-04-15 12:24 | W.PN.UPDATE ---
Update Note
Progress Note Update
I saw and evaluated the patient. I reviewed the resident�s note and agree with findings and plan as documented in the resident�s note.
No acute complaints.
Gen: NAD, AAOx3, appears chronically ill malnourished.
Eyes: EOMI, PERRLA, no scleral icterus.
Neck: supple.
CV: RRR, +S1/S2, no m/r/g.
Resp: remains CTAB, no rales, wheezes, or rhonchi.
Abd: remains +BS, soft, NT, ND
Skin: No rashes.
Neuro: CN 2-12 intact, non-focal.
Psych: Normal mood and affect.
CXR: No active cardiopulmonary disease.
CT A/P: No acute abnormalities. Prostatomegaly with prominent central calcifications. Minimal left pleural effusion and deep tendon atelectasis at the posterior lung bases.
Echo:
1. Normal left ventricular size and systolic function without regional wall
motion abnormalities. Mild concentric left ventricular hypertrophy. Estimated
left ventricular ejection fraction is 55 to 60% by visual estimation. Normal
diastolic function.
2. Normal right ventricular size and systolic function.
3. No significant valvular abnormalities.
4. No significant pericardial effusion.
Adrenal crisis, [place]'s disease:
-due to noncompliance with hydrocortisone at home as he ran out of med
-also in the setting of viral gastritis/URI
-was on IV Hydrocortisone, now off
-PO Hydrocortisone restarted
-In retrospect, shock on admission was likely due to addisonian crisis and hypovolemia. No source of infection was identified. The patient was on broad-spectrum antibiotics which have been stopped.
Tachycardia:
-case discussed with Dr. Ba on 04/14/24. Echo unremarkable and patient has scheduled follow-up with cardiology for his sinus tachycardia.
Other problems:
Hypothyroidism: cont Levoxyl
KASSIE and non-AG metabolic acidosis: resolved with IVFs with bicarb
Hyperkalemia, resolved
Hyponatremia, mild
FULL/Lovenox
Total time spent on d/c = 32 min. This included today's physical exam, progress note, review of laboratory and diagnostic data, preparation of discharge documents and prescriptions, and discussions about the pt's hospital course and discharge plan
with the patient and other medical billing coder involved in the patient's care.
--- NOTE | 2024-04-15 12:42 | W.DCSUMMARY ---
Addendum entered and electronically signed by Manas Stevens MD 04/15/24 14:51:
Read, reviewed, and agree. See same day progress note for additional details.
Original Note:
Discharge Summary
Discharge Data
Date of Admission: 04/10/24
Date of Discharge: 04/15/24
-
Pending Results: No
Hospital Course
Patient is a 58 M with hx of [place]'s disease and hypothyroidism who presented after syncope episode associated with lightheadedness. He was found to have fever, persistent hypotension despite fluid therapy, KASSIE, hyperkalemia, hyponatremia and
metabolic acidosis in ED. Patient was admitted to the ICU for close monitoring. ID was consulted and he was started on antibiotics to cover for potential infectious process, but since patient's clinical condition stabilized after starting IV
hydrocortisone, antibiotics were DC'd. He was started on stress dose steroids and weaned to home cortisone as tolerated. It was eventually discovered that he had run out of his medications at home and had not been taking them for close to a week.
He was seen by ID and Critical Care. Patient did not require any pressors while in the ICU to maintain BP and was downgraded to telemetry on 04/11.
Patient was initially cleared for discharge on 04/13; however, he developed sinus tachycardia later in the afternoon and it was decided for patient to stay for telemonitoring.
Cardiology was consulted and echo done. Since patient was asymptomatic, no interventions needed per cardiology.
CXR (04/10):
No active cardiopulmonary disease.
Echo (04/14/24):
1. Normal left ventricular size and systolic function without regional wall motion abnormalities. Mild concentric left ventricular hypertrophy. Estimated left ventricular ejection fraction is 55 to 60% by visual estimation. Normal diastolic
function.
2. Normal right ventricular size and systolic function.
3. No significant valvular abnormalities.
4. No significant pericardial effusion.
Blood culture: Negative after 4 days
Urine culture: Staph epidermis and mixed tavares;, possible contamination
Today, patient is medically stable for discharge to home. He was advised to follow-up with his PCP in less than 1 week. Also, patient should follow-up with cardiology office (Dr. Ba) on 04/21/2024 as outpatient.
Patient was advised to take his medications including hydrocortisone and levothyroxine regularly and not to miss any doses. Prescriptions have been transmitted to [facility] in [place].
Discharge Plan
-
Patient Disposition: Home (Routine Discharge)
Discharge Diagnosis/Procedures: Adrenal Crisis from non-compliance with medication
Condition: Fair
Diet: As tolerated
Activity: As tolerated
Driving Restrictions: As prior to admission
Bathing Restrictions: None
Referrals:
Julieta Santos DO [Family Provider] - in less than 1 week
Ame Ba, [Active] - 04/21/24 9:00 am ([facility]
Additional Discharge Medication Instructions: Cannot miss a dose of hydrocortisone. You need to follow up with your negotiations director.
CXR
IMPRESSION:
No active cardiopulmonary disease.
CTAP
IMPRESSION:
1). No acute abnormalities
2). Prostatomegaly with prominent central calcifications
3). Minimal left pleural effusion and deep tendon atelectasis at the posterior lung bases
Prescriptions:
New
levothyroxine 50 mcg Tablet
50 mcg PO DAILY @ 0600 30 Days Qty: 30 0RF
Continued
hydrocortisone 10 mg tablet
10 mg PO DAILY@0700 30 Days Qty: 30 0RF
hydrocortisone 10 mg tablet
5 mg PO DAILY@1500 30 Days Qty: 30 0RF
levothyroxine 50 mcg capsule
50 mcg PO DAILY Qty: 30 0RF
Discharge Orders:
Discharge Patient (As Directed); Ordered 04/15/24
Ordered By: Aurora Whitt
Discharge Date and Time
Print Language: DANISH
== END 2024-04-15 14:10 | disposition home or self-care (01) | DRG 643 ==
LOC: 4 EAST ACU 11:57
PROVIDERS: Internal Medicine; Nurse Practitioner Primary Care; Physician Assistant; Student in an Organized Health Care Education/Training Program; ADMITTING PHYSICIAN Hospitalist; ATTENDING PHYSICIAN Internal Medicine; CONSULT PHYSICIAN Internal Medicine Critical Care Medicine; EMERGENCY PHYSICIAN Emergency Medicine; FAMILY PHYSICIAN Family Medicine; OTHER PHYSICIAN Specialist; OTHER PHYSICIAN Student in an Organized Health Care Education/Training Program
DX: E27.2 Addisonian crisis (principal); R57.1 Hypovolemic shock; E87.1 Hypo-osmolality and hyponatremia; N17.9 Acute kidney failure, unspecified; E87.20 Acidosis, unspecified; E03.8 Other specified hypothyroidism; E87.5 Hyperkalemia; T38.0X6A Underdosing of glucocorticoids and synthetic analogues, initial encounter; K21.9 Gastro-esophageal reflux disease without esophagitis; L89.522 Pressure ulcer of left ankle, stage 2; L89.512 Pressure ulcer of right ankle, stage 2; R00.0 Tachycardia, unspecified; D75.839 Thrombocytosis, unspecified; Z91.138 Patient's unintentional underdosing of medication regimen for other reason; Z79.890 Hormone replacement therapy; Z79.52 Long term (current) use of systemic steroids; Z11.52 Encounter for screening for COVID-19; Z98.41 Cataract extraction status, right eye; Z98.42 Cataract extraction status, left eye
CPT/HCPCS: 71045; 74176; 80048; 80053; 81003; 81015; 82024; 82088; 82533; 82805; 82962; 83605; 83690; 83735; 83930; 83935; 84100; 84300; 84439; 84443; 84484; 85025; 85027; 87040; 87502; 87811; 93005; 93306; 96361; 96374; 96375; 97116; 97161; 97165; 99291

== ENCOUNTER 2024-10-18 06:45 | Inpatient (IN) | payer BC, SELFPAY ==
[2024-10-18] VITALS (36 sets, daily range): BP systolic 52–127; BP diastolic 33–98; PULSE 95–119; BMI 20.5
--- NOTE | 2024-10-18 04:09 | ED.GENMED ---
History of Present Illness
General
Chief Complaint: Fall
Source: patient
Exam Limitations: none
Time Seen by Provider: 10/18/24 03:47
Nursing documentation reviewed up to this point in time: agreed with
History of Present Illness
History of Present Illness:
Patient with history of [place]'s disease and hypothyroidism, presents to ED after unwitnessed syncopal episode, after he walked up a flight of stairs, as he was going to bathroom. Patient states that he unfortunately has had number of similar
episodes in the past, secondary to hypotension. Incidentally, patient states that for the past 1 week, as his stomach has been unsettling, he has not been able to eat much at home. Denies vomiting or diarrhea. Denies fever or chills. Denies
recent illness. Denies sick contact. Denies recent travel. Denies recent change in medications or diet.
Past History
Past History
ED Past Medical History: Other (Both thyroidism, [place]'s disease)
Social History
Tobacco: Non-smoker
Alcohol: None
Drug: None
Living: with family
Employment: Employed
Family History
Family History: Other (Diabetes in mother and father hypothyroidism and rheumatoid arthritis and his mother )
Review of Systems
Review of Systems
Allergies reviewed?: Yes
All Other Systems: ROS reviewed and negative except as documented in HPI and ROS
Constitutional: Reports no symptoms; Denies fever
Cardiac: Reports syncope; Denies chest pain or palpitations
ABD/GI: Reports abdominal pain; Denies vomiting or diarrhea
Musculoskeletal: Reports no symptoms; Denies neck pain
Skin: Reports no symptoms
Neurological: Reports no symptoms; Denies dizzy or headache
Phy Exam
Physical Exam
Physical Exam:
Physical Exam
General: mild distress. weak appearing. afebrile.
Head: an erythema/ecchymosis noted over left cheed.
Neck: supple. normal range of motion
Heart: s1/s2 regular rate and rhythm
Lungs: no acute respiratory distress. clear bilaterally
Abdomen: normal bowel sounds. not tender.
Neuro: alert and oriented x 3. no focal neurological deficits
Skin: no rash
Psychiatric: well kept. interactive and cooperative
Extremities: no edema. no calf tenderness.
Course
Orders/Labs/Results
Orders:
Orders
10/18/24 03:54
Electrocardiogram (*1) Urgent
Reason for Study: Syncope
EKG- Treatment ONCE
Orthostatic VS- Treatment ONCE
10/18/24 03:55
CT Facial Bones W/o Iv Contras Urgent
Comment:
Reason For Exam: left facial trauma
10/18/24 03:56
CT Abd/pel Without Iv Or Oral Urgent
Comment:
Reason For Exam: flank pain
10/18/24 04:23
0.9% Sodium Chloride 500 ml [Nss] 500 ml IV BOLUS
10/18/24 04:39
Complete Blood Count/With Diff Urgent
Comprehensive Metabolic Panel Urgent
Direct Bilirubin Urgent
Comment: ADD ON
Free T4 Urgent
Lipase Urgent
Comment: ADD ON
Magnesium Urgent
Serum Osmolality Urgent
Comment: ADDED
TSH Reflex To Free T4 Urgent
Comment: ADD ON
Troponin I Urgent
10/18/24 04:55
Hydrocortisone Sod Succinate [Solu-Cortef] 100 mg IV NOW STA
10/18/24 05:03
0.9% Sodium Chloride 500 ml [Nss] 500 ml IV BOLUS
10/18/24 05:10
Osmolality, Random Urine Urgent
Date Specimen was Collected: 10/18/24
Time Specimen was Collected: 05:09
Comment: ADDED
Urinalysis Reflex To Culture Urgent
Date Specimen was Collected: 10/18/24
Time Specimen was Collected: 05:09
Urine Microscopic Reflex Cult Urgent
Urine Sodium Urgent
Date Specimen was Collected: 10/18/24
Time Specimen was Collected: 05:09
Comment: ADDED
Urine Culture Urgent
LUIS ENRIQUE Source: U
Specimen Description:
Date Specimen was Collected: 10/18/24
Time Specimen was Collected: 05:09
10/18/24 05:26
Add On- LAB Urgent
Tests Added?: TSH to reflex free T4
10/18/24 05:46
Add On- LAB Urgent
Tests Added?: serum osm, urine sodium, urine osm
10/18/24 05:57
Calcium Gluconate 1,000 mg IV NOW STA
Dextrose 50%-Water [Dextrose 50% Syringe] 25 grams IV NOW STA
Sodium Bicarbonate 50 meq IV NOW STA
10/18/24 05:59
Insulin Human Regular [Novolin R] 5 units IV NOW STA
10/18/24 Breakfast
Clear Liquid
At Your Request: Full Participation
Fluid Restriction: 1440 mL/day (48 oz)
Flush (0.9% Sodium Chloride) [Flush (Nss)] See Dose Instructions IV PER PROTOCOL
Sps Sodium Polystyrene Sulfon [Kayexalate Suspension] 15 grams PO NOW STA
10/18/24 06:03
Sodium Zirconium Cyclosilicate [Lokelma] 10 gram PO NOW STA
10/18/24 06:23
Admit/Transfer Patient As Directed
Co-Sign Provider:
Level of Care: Inpatient admission
Assign to:: IMU- Intermediate Care
Physician / Group: [place]/Hospitalist
Diagnosis: Adrenal crisis, hypovolemic shock, hyperkalemia, esophagitis
Reason for Hospitalization: Adrenal crisis, hypovolemic shock, hyperkalemia, esophagitis
Expected length of stay greater than two midnights?: Yes
ELOS- Estimated Length of Stay in days: 4
I certify the patient meets the requirements for IP care: Yes
PRN Pain Medication Management As Directed
May give lesser potent ordered pain med per pt: Yes
preference::
Protocol:: Medication orders for pain may be administered in a
manner that supports deferring to patient preference
when the pt is:
- Requesting an ordered lesser potent pain medication.
Least to most potent pain medications are defined
as: acetaminophen < NSAID < tramadol < opioids
(morphine, oxycodone, hydromorphone).
- Requesting a lesser dose of the same medication IF
ORDERED.
- Requesting a less intrusive route of administration
if both routes are prescribed by the provider (PO <
IV).
10/18/24 06:25
Code Status As Directed
Resuscitation Status: Full Code
10/18/24 06:31
Add On- LAB Stat
Tests Added?: lipase
10/18/24 09:09
Potassium Urgent
Comment: draw 2 hours after regular insulin IV administration
10/18/24 10:06
0.9% Sodium Chloride 1000 ml [Nss] 1,000 ml IV 125 mls/hr
Docusate Sodium [Colace] 100 mg PO BID
Docusate W/Senna [Senokot-S] 1 tablet PO BIDPRN PRN
Heparin 5,000 units SC Q8
Pantoprazole [Protonix IV] 40 mg IV NOW STA
Polyethylene Glycol Powder [Miralax] 17 grams PO DAILYPRN PRN
Sennosides [Senna Syrup] 8.8 mg PO BID
10/18/24 10:06
Consult Notification Routine
Specialty to Notify: Endocrinology
Date consulting provider notified: 10/18/24
Time consulting provider notified: 14:46
Notified:: Provider
Comment: TT
Consult Notification Routine
Specialty to Notify: Gastroenterology
Date consulting provider notified: 10/18/24
Time consulting provider notified: 14:46
Notified:: Provider
Comment: TT
Consult Notification Routine
Specialty to Notify: Nephrology
Date consulting provider notified: 10/18/24
Time consulting provider notified: 14:46
Notified:: Provider
Comment: TT
ENDOCRINOLOGY CONSULT Routine
Consulting Provider: Alina Mckay
Was physician already notified: No
Reason for consult: adrenal insufficiency/crisis
GASTROINTESTINAL CONSULT Routine
Consulting Provider: Hillary Garcia
Was physician already notified: No
Reason for consult: n/v/anorexia, adrenal crisis, CT w thickened esophagus
NEPHROLOGY CONSULT Routine
Consulting Provider: Adán Carrillo V.
Was physician already notified: No
Reason for consult: adrenal crisis/insufficiency, hypona, hypok, met acidosis
Activity As Directed
Activity Level: With Assistance
Bladder Scan As Directed
Follow Bladder Retention/Intermittent Cath Algorithm?: Yes
PRN if no void in __ hours: 6
Frequency: Per Retention Algorithm
If Bladder Scan Result >: 400
then:: Straight cath
Straight Cath As Directed
Frequency: Per Retention Algorithm
Additional Instructions: straight cath as needed per acute urinary retention algorithm for 24 hrs
Additional Instructions: for bladder scan greater than 400 mL
Vital Signs As Directed
Frequency: Per unit guidelines
Pulse Ox/spot Check [RESP] Routine
Quantity: 1
DX Deep Vein Thrombosis Video Routine
10/18/24 12:00
Hydrocortisone Sod Succinate [Solu-Cortef] 50 mg IV Q6
10/19/24 04:00
Comprehensive Metabolic Panel IN AM
10/19/24 06:00
Levothyroxine [Synthroid] 75 mcg PO DAILY @ 0600
10/19/24 08:00
Pantoprazole [Protonix IV] 40 mg IV DAILY
10/20/24 06:00
Basic Metabolic Panel IN AM
10/20/24 08:00
Bisacodyl [Dulcolax] 10 mg RECTAL [id number] PRN
Abnormal Lab Results
10/18/24 10/18/24 10/18/24
04:39 05:10 06:19
WBC 11.0 H 10^3/uL
(4.8-10.8)
MCH 31.7 H pg
(27.0-31.0)
Plt Count 493 H 10^3/uL
(130-400)
Absolute Neuts (auto) 7.3 H 10^3/uL
(1.4-6.5)
Absolute Monos (auto) 1.3 H 10^3/uL
(0.1-0.6)
Lymphocytes % 19.5 L %
(20.5-51.1)
Monocytes % 11.4 H %
(1.7-9.3)
Sodium 123 L mmol/L
(135-145)
Potassium 6.7 H* mmol/L
(3.5-5.1)
Chloride 95 L mmol/L
(98-107)
Carbon Dioxide 13 L* mmol/L
(22-30)
BUN 81 H mg/dl
(9-20)
Creatinine 2.2 H mg/dL
(0.7-1.3)
Glucose 124 H mg/dl
(70-99)
Magnesium 2.5 H mg/dl
(1.6-2.3)
Total Bilirubin 1.4 H mg/dl
(0.2-1.3)
Direct Bilirubin 0.6 H mg/dl
(0.0-0.4)
TSH (Reflex) 10.70 H uIU/ml
(0.47-4.68)
Urine Ketones 1+ A
(Negative)
Ur Occult Blood Reflex 1+ A
(Negative)
Leukocyte Esterase Rfl 2+ A
(Negative)
Urine RBC 11-15 A /HPF
(0-2)
Urine Albumin (Reflex) 2+ A
(Neg - Trace)
POC Glucose 108 H mg/dl
(70-99)
10/18/24 04:39
10/18/24 04:39
Vital Signs
Initial and Last Documented VS:
Initial Vital Signs
Temp Pulse Resp BP Pulse Ox
96.9 F L 98 20 107/94 97
10/18/24 03:27 10/18/24 03:27 10/18/24 03:27 10/18/24 03:27 10/18/24 03:27
Last Documented Vital Signs
Temp Pulse Resp BP Pulse Ox
98.3 F 98 17 123/70 99
10/19/24 06:41 10/19/24 06:00 10/19/24 06:00 10/19/24 06:00 10/19/24 06:00
MDM/Problems Addressed
MDM/Problems Addressed:
History and exam consistent with syncope, likely secondary to dehydration, from poor oral intake this week. Blood work also supports dehydration with hyponatremia, hyperkalemia, acidosis, as well as acute renal failure. Initial hypotension noted
during orthostatic vital signs, improved with IV fluids. Patient given stress dose hydrocortisone IV in ED. Patient will be admitted for further evaluation and treatment.
Critical care statement: A total of 30 minutes of critical care time was provided for this patient. This includes management of unstable vital signs, evaluation of the patient at bedside, reviewing the patient's pertinent medical records, review of
old EKGs and review of pertinent medical records. This time with separate from time utilized to perform the aforementioned documented procedures
*EKG
Interpreted by ED Provider?: Yes
EKG Intrepretation Date: 10/18/24
Heart Rate: 97
Rate: normal
Rhythm: sinus
[place]: normal axis
*Critical Care Note
Total Time (30-74mins, 75-104mins- exclusive of procedures): 30 min
ED Attending Note
-
Portions of this chart may have been created with voice recognition software.� Occasional wrong word or��sound alike� substitutions may have occurred due to the inherent limitations of voice recognition software.
Discharge Plan
Departure
Patient Disposition: Admit
Date of Disposition: 10/18/24
Time of Disposition: 05:32
Admit to: Telemetry
Presentation/result/management discussed w/ accepting MD/DO: Hospitalist
Discharge Problem:
Syncope, Hypotension, Acute renal failure, Electrolyte abnormality
Interventions
Interventions:
*Risk Screen - Suicide Last Done: 10/18/24 03:27
*General Assessment Last Done: 10/18/24 03:27
*Neglect/Abuse Screening Last Done: 10/18/24 03:27
*ED- Fall Risk Assessment Last Done: 10/18/24 03:27
*ED COVID-19 Vaccine History Last Done: 10/18/24 03:27
*Nursing Disposition Last Done: 10/18/24 13:20
ED-Musculoskeletal Assessment Last Done: 10/18/24 04:35
ED- Neurological Assessment Last Done: 10/18/24 03:35
ED-Skin Assessment Last Done: 10/18/24 03:35
Discharge Date and Time
Discharge Date/Time: 10/18/24 13:20
[2024-10-18] MEDS: NSS 500 IV ×2 (04:25→05:03)
[2024-10-18 04:51] LABS: % Basophils 0.7 % (0-2); % Eosinophils 1.5 % (0-6); % Immature Granulocytes 0.4 % (0-0.5); % Lymphocytes 19.5 % (20.5-51.1); % Monocytes 11.4 % (1.7-9.3); % Neutrophils 66.5 % (42.2-75.2); Absolute Basophils 0.1 10^3/uL (0-0.2); Absolute Eosinophils 0.2 10^3/uL (0-0.7); Absolute Lymphocytes 2.1 10^3/uL (1.2-3.4); Absolute Monocytes 1.3 10^3/uL (0.1-0.6); Absolute Neutrophils 7.3 10^3/uL (1.4-6.5); Hematocrit 47.1 % (39.0-52.0); Hemoglobin 17.2 g/dL (13.0-18.0); Mean Corp Hgb Conc. 36.5 g/dL (33.0-37.0); Mean Corpuscular Hgb 31.7 pg (27.0-31.0); Mean Corpuscular Volume 86.9 fL (80.0-94.0); Mean Platelet Volume 9.7 fL (7.4-10.4); Nucleated Red Blood Cells % 0 % (-); Platelet Count 493 10^3/uL (130-400); Red Blood Cell Count 5.42 10^6/uL (4.70-6.10); Red Cell Dist. Width 12.7 % (11.5-14.5)
[2024-10-18] MEDS: SOLU-CORTEF 100 MG IV (05:02)
[2024-10-18 05:17] LABS: Urine Albumin 2+ (Neg - Trace); Urine Bilirubin Negative (Negative); Urine Character Clear (Clear); Urine Color Amber; Urine Glucose Negative (Negative); Urine Ketone 1+ (Negative); Urine Leukocyte 2+ (Negative); Urine Nitrite Negative (Negative); Urine Occult Blood 1+ (Negative); Urine Specific Gravity 1.025 (<1.030); Urine Urobilinogen Negative (Neg - 1+)
[2024-10-18 05:21] LABS: ALT (SGPT) 17 U/L (0-50); AST (SGOT) 20 U/L (17-59); Albumin 4.7 g/dl (3.5-5.0); Alkaline Phosphatase 102 U/L (38-126); Blood Urea Nitrogen 81 mg/dl (9-20); Calcium 9.6 mg/dl (8.4-10.2); Carbon Dioxide 13 mmol/L (22-30); Chloride 95 mmol/L (98-107); Estimated Creatinine Clearance 37 ml/min; Glucose 124 mg/dl (70-99); Magnesium 2.5 mg/dl (1.6-2.3); Potassium 6.7 mmol/L (3.5-5.1); Sodium 123 mmol/L (135-145); Total Bilirubin 1.4 mg/dl (0.2-1.3); Total Protein 7.6 g/dl (6.3-8.2); eGFR 34.08
[2024-10-18 05:27] LABS: Troponin I < 0.012 ng/ml
--- NOTE | 2024-10-18 05:31 | HPS.HSE ---
Family Physician
-
Family Physician: NOT KNOW UNKNOWN - PT DOES
Chief Complaint
-
abdominal pain, vomiting, feeling ill for several days prior to arrival
History of Present Illness
Patient is a 58-year-old male with past medical history significant for adrenal insufficiency, [place]'s disease, chronic abdominal pain, hypothyroidism, admitted here February and April 2024 secondary to adrenal insufficiency, hypovolemia, and
adrenal crisis from noncompliance with medications, who presented to the emergency department secondary to a syncope episode that was unwitnessed after walking up a flight of steps. Of note he has had similar episodes in the past due to hypotension
and adrenal insufficiency. He has had decreased oral intake over the past 1 week secondary to GI upset, mid-abdominal pain, nausea, anorexia, and decreased oral intake. He denies any chest pain, no shortness of breath, no diarrhea, no dysuria. He
has not had any recent travel nor sick contacts. He has been taking his outpatient hydrocortisone. In the emergency department he received hydrocortisone 100 mg IV once, IV fluid bolus, with improvement in his blood pressure from 77/59 mmHg and
58/33 mmHg up to 96/66. Laboratory studies are remarkable for WBC 11.0,Sodium 123, sodium 123, potassium 6.7, creatinine 2.2, BUN 81, CO2 13, magnesium 2.5, total bilirubin 1.4, pending TSH, urine analysis 2+ leuk esterase and 1+ occult blood,
11-15 RBCs and 2+ albumin
Medical History
Past Medical History
Past Medical History: Reports GERD and Hypothyroidism
Additional Past Medical History:
Merrick disease, chronic abdominal pain, multiple admissions for Adrenal insufficiency, hypovolemic shock, and adrenal crisis
Past Surgical History: Reports Other (Bilateral cataract surgery)
Social History
Tobacco: Non-smoker
Alcohol: None
Drug: None
Living: With Family (With father and stepmom)
Employment: Employed
Family History
Family History: Not pertinent
Allergies / Home Medications
Allergies reflects when Allergies were last updated in [facility].
Home Medications with original date entered in [facility]
Allergy/Medication List:
Allergies
Allergy/AdvReac Type Severity Reaction Status Date / Time
grass pollen Allergy Unknown Verified 10/18/24 03:34
house dust Allergy Unknown Verified 10/18/24 03:34
pollen extracts Allergy Unknown Verified 10/18/24 03:34
tree and shrub pollen Allergy Unknown Verified 10/18/24 03:34
Home Medications
hydrocortisone 10 mg tablet 5 mg (1/2 x 10 mg) PO DAILY@1500 haily's disease 30 days #30 tabs 04/13/24
hydrocortisone 10 mg tablet 10 mg PO DAILY@0700 haily's disease 30 days #30 tabs 04/13/24
levothyroxine 50 mcg tablet 75 mcg PO DAILY @ 0600 10/18/24
Review of Systems
-
A 12 point ROS was completed and negative except as noted: Yes
Physical Exam
Vital Signs
Vital Signs
Temp Pulse Resp BP Pulse Ox
96.9 F L 96 23 96/66 97
10/18/24 03:27 10/18/24 05:00 10/18/24 05:00 10/18/24 05:00 10/18/24 05:00
Physical Exam
General: Well Developed, No Apparent Distress, Conversant, Appears Chronically Ill and Cachectic
HEENT: NormoCephalic and Anicteric
Respiratory: Clear
Cardiac: S1/S2 and Regular Rhythm
GI: Soft, Non Distended and Tender (mid-abdomen, no peritoneal signs)
Musculoskeletal: No Clubbing and No Cyanosis
Skin: Warm and Dry
Neuro: AO x 3, No Motor Deficits and Nonfocal/grossly intact
Psych: Calm
Laboratory Results
-
10/18/24 04:39
10/18/24 04:39
Laboratory Results
Total Bilirubin 1.4 mg/dl (0.2-1.3) H 06/14/25 04:39
AST 20 U/L (17-59) 10/18/24 04:39
ALT 17 U/L (0-50) 10/18/24 04:39
Alkaline Phosphatase 102 U/L (38-126) 10/18/24 04:39
Troponin I < 0.012 ng/ml 10/18/24 04:39
Data Reviewed
-
CT Scan: Report Reviewed by me (see below, facial bone CT Mild preseptal soft tissue swelling over the left orbit.Severe mucosal disease in the left frontal sinus. Moderate mucosal disease in the left maxillary sinus and left ethmoid air cells.)
Impression/Plan
-
IMPRESSION:
# Syncope likely due to Hypovolemic shock due to adrenal crisis, secondary to [place]'s disease and possible with volume depletion from decreased oral intake, abdominal pain, and vomiting
-Status post IV fluid bolus and 100 mg IV of hydrocortisone in the emergency department
-CT abdomen and pelvis - Multiple findings as possible etiology of symptoms- Mild to moderate circumferential wall thickening in the distal esophagus with mild esophageal distention and periesophageal edema. Diagnostic possibilities are (1) reflux
esophagitis or (2) esophageal carcinoma/ Large amount of fecal material in the proximal colon suggesting constipation.Moderate distention of the urinary bladder.
-TSH pending
-Continue 50 IV hydrocortisone Q6
-Endocrinology consultation tomorrow
# Acute renal failure, creatinine 2.2 from a baseline of 0.8
# Hyponatremia, hyperkalemia, and metabolic acidosis likely secondary to adrenal insufficiency/crisis with acute renal failure and volume depletion
-K 6.7, EKG without peaked T-waves
-ED txt: sodium bicarbonate, calcium gluconate, dextrose, insulin, Lokelma
-Nephro consultation this am
#Hypothyroidism
-TSH pending
#Constipation, likely contributing to abdominal pain, anorexia
-start bowel regimen
#Reflux esophagitis vs esophageal carcinoma
-start IV PPI
-consult GI for the morning
#Distended urinary bladder
-UA culture pending, hold off on abx at this time
-bladder scan per protocol, straight cath if needed
Other findings on CT a/p:
- Moderately enlarged prostate gland.
- Moderate multilevel lumbar discogenic degenerative disease.
- Severe bilateral facet joint arthrosis at L5/S1.
- Transitional lumbosacral vertebral segment.
Findings on CT facial bones
Mild preseptal soft tissue swelling over the left orbit. Severe mucosal disease in the left frontal sinus. Moderate mucosal disease in the left maxillary sinus and left ethmoid air cells. Severe left deviation of the nasal septum. Severe discogenic
degenerative disease at C4/C5 and C5/C6.
DVT proph-heparin SQ BID
Full Code
PLAN:
[2024-10-18] MEDS: SODIUM BICARBONATE 50 MEQ IV (06:14)
[2024-10-18] MEDS: CALCIUM GLUCONATE 1000 MG IV (06:14)
[2024-10-18] MEDS: FLUSH (NSS) 1 FLUSH IV (06:15)
[2024-10-18] MEDS: LOKELMA 10 GRAM PO (06:15)
[2024-10-18 06:18] LABS: Osmolality Urine 543 mOsm/kg (300-900)
[2024-10-18 06:30] LABS: Glucose - Point of Care 108 mg/dl (70-99)
[2024-10-18 06:32] LABS: Urine Sodium 55 mmol/L (30-90)
[2024-10-18] MEDS: DEXTROSE 50% SYRINGE 25 GRAMS IV (06:32)
[2024-10-18] MEDS: NOVOLIN R 5 UNITS IV (06:36)
[2024-10-18 06:45] LABS: Osmolality Serum 280 mOsm/kg (275-300)
[2024-10-18 06:53] LABS: Lipase 147 U/L (23-300)
[2024-10-18 07:31] LABS: Free T4 1.29 ng/dl (0.78-2.19)
--- NOTE | 2024-10-18 07:34 | W.PN.HOSP.TC ---
Today's Communication/Plan
-
see A/P
Assessment / Plan
Assessment / Plan
58-year-old male with past medical history significant for adrenal insufficiency, Garza's disease, chronic abdominal pain, hypothyroidism, admitted here February and April 2024 secondary to adrenal insufficiency, hypovolemia, and adrenal crisis
from noncompliance with medications, who presented to the emergency department secondary to a syncope episode that was unwitnessed after walking up a flight of steps.
Of note, he has had similar episodes in the past due to hypotension and adrenal insufficiency.
He has had decreased oral intake over the past 1 week secondary to GI upset, mid-abdominal pain, nausea, anorexia, and decreased oral intake.
He denies any chest pain, no shortness of breath, no diarrhea, no dysuria. He has not had any recent travel nor sick contacts. He has been taking his outpatient hydrocortisone.
In the emergency department he received hydrocortisone 100 mg IV once, IV fluid bolus, with improvement in his blood pressure from 77/59 mmHg and 58/33 mmHg up to 96/66.
A/P:
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
Status post IV fluid bolus and 100 mg IV of hydrocortisone in the emergency department
Cont IV hydrocortisone 50 mg Q6H
Cont IVF 125 cc/hr
CT AP- Multiple findings as possible etiology of symptoms- Mild to moderate circumferential wall thickening in the distal esophagus with mild esophageal distention and periesophageal edema. Diagnostic possibilities are (1) reflux esophagitis or (2)
esophageal carcinoma/ Large amount of fecal material in the proximal colon suggesting constipation. Moderate distention of the urinary bladder.
TSH high at 10.7, FT4 at 1.29
Check blood culture x2
# Acute kidney injury
creatinine 2.2 from baseline of 0.8
IVF as above
# Hyponatremia
# hyperkalemia with metabolic acidosis
likely secondary to adrenal insufficiency/crisis with KASSIE and volume depletion
K 6.7 on admission, treated with sodium bicarbonate, calcium gluconate, dextrose, insulin, Lokelma in ED
Check follow up K level
EKG without peaked T-waves
Nephro consult
# Hypothyroidism
TSH high at 10.7, FT4 at 1.29
Cont Synthroid
# Constipation, likely contributing to abdominal pain, anorexia
started bowel regimen
# Reflux esophagitis vs esophageal carcinoma
start IV PPI
consult GI
# Distended urinary bladder
UA not suggestive of UTI
Bladder scan per protocol, straight cath if needed
Other findings on CT AP:
- Moderately enlarged prostate gland.
- Moderate multilevel lumbar discogenic degenerative disease.
- Severe bilateral facet joint arthrosis at L5/S1.
- Transitional lumbosacral vertebral segment.
Findings on CT facial bones
Mild preseptal soft tissue swelling over the left orbit. Severe mucosal disease in the left frontal sinus. Moderate mucosal disease in the left maxillary sinus and left ethmoid air cells. Severe left deviation of the nasal septum. Severe discogenic
degenerative disease at C4/C5 and C5/C6.
DVT proph-heparin SQ BID
Full Code
total time spent 51 min
Anticipated Discharge: > 48 hours
Subjective/Interval History
-
Date of Service: October 18, 2024
Objective Data
-
Labs:
Laboratory Results
10/18/24 10/18/24
04:39 08:30
WBC 11.0 H
Hgb 17.2
Hct 47.1
Plt Count 493 H
Sodium 123 L
Potassium 6.7 H* Pending
Chloride 95 L
Carbon Dioxide 13 L*
BUN 81 H
Creatinine 2.2 H
Glucose 124 H
Calcium 9.6
Total Bilirubin 1.4 H
AST 20
ALT 17
Alkaline Phosphatase 102
Vital Signs:
Vital Signs
Temp Pulse Resp BP Pulse Ox
36.1 C L 110 20 127/84 99
10/18/24 03:27 10/18/24 06:45 10/18/24 06:45 10/18/24 06:45 10/18/24 06:30
I&O
10/17/24 10/18/24 10/19/24
06:59 06:59 06:59
Output Total 300 / 300
Balance -300 / -300
Review of Systems
-
History Source: Family
Abdomen/GI: Reports Abdominal Pain (mild abd pain )
Physical Exam
-
General: Well Developed, No Apparent Distress, Comfortable, Conversant and Appears Chronically Ill
HEENT: Normocephalic and Anicteric; Negative Oxygen
Respiratory: Clear to Auscultation and Non Labored Respirations
Cardiac: Regular Rhythm, S1/S2 and Tachycardic
GI: Soft, Nontender, Nondistended and Normal Bowel Sounds
Musculoskeletal: No Clubbing, No Cyanosis and No Edema
Skin: Warm and Dry
Neuro: Awake and Alert
Psych: Calm and Intact Judgement/Insight (somewhat)
Data Reviewed
-
Labs: Labs Reviewed by me
--- NOTE | 2024-10-18 09:32 | CM ---
Met with patient at bedside in the ED
Pharmacy verified: [facility] @ [address] [facility]
Family Physician: Dr Lorena Gutiérrez, [address], [address], [place]
Patient reported that he lives with father and family; multilevel home; ramp to enter (railings on ramp); bedroom located in the basement; 12 steps to bathroom (tub w/shower)
PLOF: patient reported he is independent with personal care; meals provided; does his own laundry; no device with ambulation; able to go up/down stairs
NO SNF or Home Health utilization history
NO DME
Stepmother will transport home
Plan: anticipate discharge to home when medically stable; Cruise Counselor will monitor and support discharge needs/services if needed
[2024-10-18 09:33] LABS: Potassium 5.5 mmol/L (3.5-5.1)
--- NOTE | 2024-10-18 10:13 | W.CON.NEPH ---
Consultation
-
Date/Time Consultation Requested: 10/18/2024 8:00 AM
Date/Time Consultation Performed: 10/18/2024 1015
Requesting Provider: Dr. Richter
Performing Provider: Dr. Carrillo
Reason for Consultation: Acute kidney injury
Medical History
-
Chief Complaint: Acute kidney injury/Hyperkalemia
History of Present Illness:
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 He also has a known history of hyponatremia with serum sodium
levels usually in the high 120s to 130s. He presented last evening to the emergency department secondary to a syncope episode that was unwitnessed after walking up a flight of steps. Of note he has had similar episodes in the past due to
hypotension and adrenal insufficiency when we had seen him in April 2024. He has had decreased oral intake over the past 1 week secondary to GI upset, mid-abdominal pain, nausea, anorexia, and decreased oral intake. He denies any chest pain, no
shortness of breath, no diarrhea, no dysuria. He has not had any recent travel nor sick contacts. He has been taking his outpatient hydrocortisone. In the emergency department he received hydrocortisone 100 mg IV once, IV fluid bolus, with
improvement in his blood pressure from 77/59 mmHg and 58/33 mmHg up to 96/66. Laboratory studies are remarkable for WBC 11.0,Sodium 123, sodium 123, potassium 6.7, creatinine 2.2, BUN 81, CO2 13, magnesium 2.5, total bilirubin 1.4, pending TSH,
urine analysis 2+ leuk esterase and 1+ occult blood, 11-15 RBCs and 2+ albumin. Nephrology was consulted for hyponatremia acute kidney injury and hyperkalemia.
Past Medical History
Hypothyroidism
Hyponatremia
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
Social History
Tobacco: Non-Smoker
Alcohol: None
Family History
No chronic kidney disease
Allergies / Home Medications
Allergy/AdvReac Type Severity Reaction Status Date / Time
grass pollen Allergy Unknown Verified 10/18/24 03:34
house dust Allergy Unknown Verified 10/18/24 03:34
pollen extracts Allergy Unknown Verified 10/18/24 03:34
tree and shrub pollen Allergy Unknown Verified 10/18/24 03:34
�Medication �Instructions �Recorded �Confirmed �Type
hydrocortisone 10 mg tablet 5 mg (1/2 x 10 mg) PO DAILY@1500 04/13/24 10/18/24 Rx
haily's disease 30 days #30 tabs
hydrocortisone 10 mg tablet 10 mg PO DAILY@0700 haily's 04/13/24 10/18/24 Rx
disease 30 days #30 tabs
levothyroxine 50 mcg tablet 75 mcg PO DAILY @ 0600 10/18/24 10/18/24 History
Review of Systems
-
History Source: Patient
All other systems: Negative unless noted
EENT: Tearing and Other (Left eye and periorbital contusion, left eye pustular drainage)
Abdomen/GI: Abdominal Pain, Nausea and Anorexia
Neurological: Other (Syncopal episode)
Physical Exam
Vital Signs
Vital Signs
Temp Pulse Resp BP Pulse Ox
96.9 F L 110 20 127/84 99
10/18/24 03:27 10/18/24 06:45 10/18/24 06:45 10/18/24 06:45 10/18/24 06:30
Lab Results
10/18/24 04:39
10/18/24 09:09
WBC 11.0 10^3/uL (4.8-10.8) H 10/18/24 04:39
RBC 5.42 10^6/uL (4.70-6.10) 10/18/24 04:39
Hgb 17.2 g/dL (13.0-18.0) 10/18/24 04:39
Hct 47.1 % (39.0-52.0) 10/18/24 04:39
Plt Count 493 10^3/uL (130-400) H 10/18/24 04:39
Sodium 123 mmol/L (135-145) L 10/18/24 04:39
Potassium 5.5 mmol/L (3.5-5.1) H 10/18/24 09:09
Chloride 95 mmol/L (98-107) L 10/18/24 04:39
Carbon Dioxide 13 mmol/L (22-30) L* 10/18/24 04:39
BUN 81 mg/dl (9-20) H 10/18/24 04:39
Creatinine 2.2 mg/dL (0.7-1.3) H 10/18/24 04:39
eGFR 34.08 10/18/24 04:39
Glucose 124 mg/dl (70-99) H 10/18/24 04:39
Calcium 9.6 mg/dl (8.4-10.2) 10/18/24 04:39
Albumin 4.7 g/dl (3.5-5.0) 10/18/24 04:39
Physical Exam
General: AOx3, Nontoxic , NAD
HEENT: PERRL, EOMI, Anicteric, Conjunctivae injected on the left eye with purulent drainage and periorbital abrasion and ecchymosis, nose Intact, Hearing Normal, Oropharynx Clear/Moist, Dentition Intact, Facial Symmetry, Neck Supple, Neck: Trachea
Midline, No JVD and No Thyromegaly, no Bruits
Respiratory: Clear to auscultation bilaterally with normal lung excursion
Cardiac: S1/S2 and Regular Rate/Rhythm
Breast: Deferred by me
Abdomen: Soft, Nontender, Nondistended, Normal Bowel Sounds and No Hepatosplenomegaly
Rectal: Deferred by Provider
Genito-urinary: No Costovertebral Tenderness
Extremities: No Clubbing, No Cyanosis and No Edema
Skin: No Rash or open lesions
Neuro: Nonfocal/Grossly Intact, CN II-XII (Intact) and Strength (Musculoskeletal exam 5 out of 5 both upper and lower extremities)
Hematologic/Lymphatic: No Cervical Lymphadenopathy, No Submandibular Lymphadenopathy and No Supraclavicular Lymphadenopathy
Psych: Mood/affect pleasant, Insight/judgement good and Appropriate
Vascular: plus 2 pedal and radial pulses
Data Reviewed
-
CT Scan: Report Reviewed by me (No evidence of obstructive uropathy notable for bilateral cortical renal volume loss possible esophagitis or mass)
Labs: Labs Reviewed by me ([facility] CBC urinalysis)
Old Records: Reviewed (Reviewed previous labs in EMR from April 13, 2024 sodium 130 creatinine 0.8)
Assessment/Plan
-
Impression:
KASSIE
Hyponatremia
Hyperkalemia
Metabolic acidosis AG 15 (gapped and non gapped)
Syncope
Louisville's disease with possible adrenal crisis
Hypothyroidism
Reflux esophagitis suspicion
Plan:
KASSIE:
- Likely prerenally mediated due to compromised hemodynamics in setting of possible adrenal crisis and/or volume depletion
-Continue alkalized isotonic IV fluids
-Check urine sodium and urine
-Check postvoid bladder scan to evaluate for possible obstructive process given moderately distended bladder and enlarged prostate on CT
-Cultures pending
-Accurate I's and Os
Hyponatremia:
-This has been a recurrent issue for the patient and is likely due to decreased effective circulating volume
-Continue isotonic fluid and hydrocortisone support, follow-up [facility] later this afternoon
-Fluid restriction at 48 ounces for now
-Check urine osmolality
-Can also be partially attributed to hypothyroidism
Hyperkalemia:
- Likely precipitated by acute kidney injury and metabolic acidosis
-Medically treated in ED
-Continue 3 doses of Lokelma
-Alkaline IV fluids
Metabolic acidosis:
- Likely precipitated by acute kidney injury
-Check lactic acid
--- NOTE | 2024-10-18 10:37 | CON.GI ---
Addendum entered and electronically signed by Hillary Garcia MD 10/18/24 11:59:
I saw and examined the patient.
The TABLEAU ARCHITECT or PA's note was reviewed and I agree with the note.
Comment:
58-year-old male with history of adrenal insufficiency, steroid-dependent, hypothyroidism presenting with episode of syncope related to hypotension.� He has had similar episodes in the past.� In the emergency room, his blood pressure was noted to be
in the mid 90s systolic, mild leukocytosis without left shift, acute renal insufficiency with creatinine of 2.2, hyperkalemia and acidosis noted.�
He was started of hydrocortisone and admitted to the hospital.
Patient does report epigastric discomfort prior to this for about 5 days, dull to sharp discomfort, no radiation, no particular association with food or bowel movements but he does report having episodes of nausea and vomiting in the last couple of
days.� He did note epigastric discomfort last visit in April similar to this 1 but in between episodes he feels well.� Denies any heartburn, regurgitation, sour taste, sore throat, choking, coughing or trouble swallowing.� Baseline bowel pattern
is 1 formed stool every other day with some pushing and straining but good evacuation, no blood in the stool or black stool.� He did lose about 18 pounds in the last 3 years as per patient.� No NSAID use.� No previous history of GI bleeds.� Never
had upper endoscopy colonoscopy no family history of colon cancer.
CT scan of the abdomen pelvis without contrast showing mild to moderate circumferential wall thickening of the distal esophagus with mild esophageal distention and periesophageal edema, rule out reflux esophagitis versus carcinoma, large amount of
stool noted in the colon as well.
-Abdominal discomfort, nausea and vomiting with CT scan showing mild to moderate distal esophageal wall thickening, rule out esophagitis versus malignancy
Esophagitis is high on the list given recent episode of nausea and vomiting.� Currently on clear liquid diet, will advance as tolerated.
Protonix 40 mg IV twice daily.
Once electrolytes are corrected, plan for an upper endoscopy.
Will follow-up on the above
-chronic constipation, start MiraLAX 1 capful daily.
-Elevated total bilirubin, will check for direct bilirubin.� Liver looks normal on CT scan except liver cysts noted.� Pancreas looks normal.
Original Note:
Consultation
-
Date/Time Consultation Requested: 10/18/24 1006
Date/Time Consultation Performed: 10/18/24 1115
Requesting Provider: Dr Wallace
Performing Provider: Dr Garcia / Julieta Alegre PA-C
Reason for Consultation: CT findings of esophageal wall thickening, abdominal pain
Medical History
Chief Complaint / HPI
History of Present Illness:
This is a 58-year-old male with past medical history of Lance's disease (on hydrocortisone) and hypothyroidism who was admitted here February and April 2024 secondary to adrenal insufficiency, hypovolemia, and adrenal crisis from noncompliance
with medications, who presented to the emergency department secondary to an unwitnessed syncopal episode after walking up a flight of steps. Patient admits to similar episodes in the past due to hypotension and adrenal insufficiency. He was also
complaining of nausea, vomiting and 'stomach upset' for the past week. He points to the epigastric region when asked to localize the abdominal pain. He denies any associated chest pain, SOB, fever, chills, diarrhea, hematemesis or coffee grounds
emesis. The vomiting lasted about 2 days, now resolved. He states the abdominal pain is improving. No sick contacts or recent travel. He does not smoke or take NSAIDs and admits to rare alcohol use.
Laboratory workup in the ER revealed a mild leukocytosis (11.0), stable hemoglobin and slightly elevated platelets. He has a history of chronic hyponatremia, with Na 123, with other electrolyte abnormalities as follows: K 6.7, Cl 95, CO2 13,
creatinine 2.2, BUN 81, and magnesium 2.5. LFTs showed total bilirubin 1.4, but otherwise normal with AST 20, ALT 17, alk phos 102. Lipase normal (147). Patient was noted to be hypotensive in the ER and received hydrocortisone 100 mg IV with IV
fluid bolus, with improvement in his blood pressure.
CT abdomen/pelvis shows wall thickening of the distal esophagus with periesophageal edema and esophageal distension, with reflux esophagitis and esophageal carcinoma listed in the possible diagnostic differential. Patient denies a history of GERD.
He denies heartburn, reflux, dysphagia, odynophagia, or early satiety. He has noted an approximately 20 pound gradual weight loss over the past 2 years, but states recently his weight is stable. He has never had an endoscopy. He notes he has never
had a colonoscopy either. He does have chronic constipation and states he typically moves his bowels about 3x a week with hard stools. No rectal bleeding. He has not had a bowel movement now in about a week. There is no family history of colorectal
cancer.
Past Medical History
Past Medical History: Hypothyroidism and Other (Lance's disease (follows regularly with Endocrine))
Past Surgical History: Other (cataracts)
Social History
Tobacco: Non-Smoker
Alcohol: Occasional
Drug: None
Living: With Family
Employment: Employed
Family History
Family History: Reviewed & Not Pertinent
Allergies / Home Medications
Allergy/AdvReac Type Severity Reaction Status Date / Time
grass pollen Allergy Unknown Verified 10/18/24 03:34
house dust Allergy Unknown Verified 10/18/24 03:34
pollen extracts Allergy Unknown Verified 10/18/24 03:34
tree and shrub pollen Allergy Unknown Verified 10/18/24 03:34
�Medication �Instructions �Recorded
hydrocortisone 10 mg tablet 5 mg (1/2 x 10 mg) PO DAILY@1500 04/13/24
lance's disease 30 days #30 tabs
hydrocortisone 10 mg tablet 10 mg PO DAILY@0700 lance's 04/13/24
disease 30 days #30 tabs
levothyroxine 50 mcg tablet 75 mcg PO DAILY @ 0600 10/18/24
Review of Systems
-
History Source: Patient
All other systems: A 12 pt ROS was Negative except as stated above in HPI
Vital Signs
Temp Pulse Resp BP Pulse Ox
96.9 F L 110 20 127/84 99
10/18/24 03:27 10/18/24 06:45 10/18/24 06:45 10/18/24 06:45 10/18/24 06:30
Physical Exam
Exam
General: Well Developed, Well Nourished and No Apparent Distress
HEENT: Other (+abrasions/superficial laceration to left periorbital region)
Respiratory: Clear
Cardiac: Regular Rhythm
GI: Soft, Non Tender, Non Distended and Normal Bowel Sounds
Skin: Warm and Dry
Neuro: AO x 3
Psych: Calm
Results
WBC 11.0 10^3/uL (4.8-10.8) H 10/18/24 04:39
Hgb 17.2 g/dL (13.0-18.0) 10/18/24 04:39
Hct 47.1 % (39.0-52.0) 10/18/24 04:39
MCV 86.9 fL (80.0-94.0) 10/18/24 04:39
Plt Count 493 10^3/uL (130-400) H 10/18/24 04:39
Absolute Neuts (auto) 7.3 10^3/uL (1.4-6.5) H 10/18/24 04:39
Sodium 123 mmol/L (135-145) L 10/18/24 04:39
Potassium 5.5 mmol/L (3.5-5.1) H 10/18/24 09:09
Chloride 95 mmol/L (98-107) L 10/18/24 04:39
Carbon Dioxide 13 mmol/L (22-30) L* 10/18/24 04:39
BUN 81 mg/dl (9-20) H 10/18/24 04:39
Creatinine 2.2 mg/dL (0.7-1.3) H 10/18/24 04:39
Calcium 9.6 mg/dl (8.4-10.2) 10/18/24 04:39
Total Bilirubin 1.4 mg/dl (0.2-1.3) H 10/18/24 04:39
AST 20 U/L (17-59) 10/18/24 04:39
ALT 17 U/L (0-50) 10/18/24 04:39
Alkaline Phosphatase 102 U/L (38-126) 10/18/24 04:39
Lipase 147 U/L (23-300) 10/18/24 04:39
Diagnostic Image Results:
CT Abdomen/Pelvis 10/18/24:
1. Mild to moderate circumferential wall thickening in the distal esophagus with mild esophageal distention and periesophageal edema. Diagnostic possibilities are (1) reflux esophagitis or (2) esophageal carcinoma.
2. Large amount of fecal material in the proximal colon suggesting constipation.
3. Moderate distention of the urinary bladder.
4. Moderately enlarged prostate gland.
5. Moderate multilevel lumbar discogenic degenerative disease.
6. Severe bilateral facet joint arthrosis at L5/S1.
7. Transitional lumbosacral vertebral segment.
Prior GI Procedures:
EGD: never
Colonoscopy: never
Assessment / Plan
-
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
medications, who presented to the emergency department secondary to an unwitnessed syncopal episode with complaints of nausea, vomiting, abdominal pain for the past week. These GI symptoms have been improving. CT abdomen/pelvis showed wall
thickening of the distal esophagus with periesophageal edema and esophageal distension and GI is consulted for further evaluation. He has never had an EGD or colonoscopy. IV PPI has been started.
IMPRESSION / PLAN:
Esophagitis / Abnormal CT findings
- with no history of GERD or prior endoscopy
- etiology possibly secondary to the recent vomiting
- continue IV Protonix
- will plan for EGD on Sunday (pending stable clinical status and resolution of electrolyte abnormalities) for further evaluation
Abdominal pain with nausea/vomiting, resolving
- suspect possible self-limited gastritis as patient is nontender on exam, with resolution of the nausea/vomiting and pain
Constipation
- chronic issue
- will start Miralax now
Colon Cancer Screening
- patient should have eventual outpatient screening colonoscopy
All other medical issues managed as per Nephrology and hospitalist team.
-
-
Thank you for consultation and allowing me to participate in the patient's care. Please call the insulation machine operator GI physician during the after hours with any questions or concerns.
[2024-10-18] MEDS: NSS (PRESERVATIVE FREE) 10 ML IV ×2 (11:11→20:43)
[2024-10-18] MEDS: PROTONIX IV 40 MG IV ×2 (11:12→20:43)
[2024-10-18] MEDS: HEPARIN 5000 UNITS SC ×3 (11:12→23:15)
[2024-10-18] MEDS: SOLU-CORTEF 50 MG IV ×3 (11:13→23:16)
[2024-10-18] MEDS: COLACE 100 MG PO ×2 (11:13→20:43)
[2024-10-18] MEDS: DULCOLAX 10 MG RECTAL (11:14)
[2024-10-18 11:37] LABS: Direct Bilirubin 0.6 mg/dl (0.0-0.4)
[2024-10-18 12:13] LABS: Blood Urea Nitrogen 67 mg/dl (9-20); Calcium 9.2 mg/dl (8.4-10.2); Carbon Dioxide 13 mmol/L (22-30); Chloride 98 mmol/L (98-107); Estimated Creatinine Clearance 51 ml/min; Glucose 121 mg/dl (70-99); Potassium 5.8 mmol/L (3.5-5.1); Sodium 124 mmol/L (135-145); eGFR 49.94
[2024-10-18] MEDS: SODIUM BICARBONATE 1075 MEQ IV ×2 (12:40→23:53)
[2024-10-18] MEDS: SENNA SYRUP 8.8 MG PO ×2 (12:45→20:43)
[2024-10-18] MEDS: MIRALAX 17 GRAMS PO (12:45)
--- NOTE | 2024-10-18 13:47 | PTCARENOTE ---
Patient received from ED. Patient AAO, VSS. Orthos done at bedside, laying and sitting were done and negative but standing was unable to get done due to machine giving a hard time and patient needing to lay down due to abdominal pain. Orientation
to the room and admission questions done. 2 RN skin check performed. IV fluids. Start ABX, awaiting blood culture results. No testing scheduled at this time. Call jimenez in reach.
[2024-10-18] MEDS: STERILE WATER FOR INJECTION 10 ML IV (15:02)
[2024-10-18] MEDS: ROCEPHIN 1000 MG IV (15:02)
[2024-10-18 16:27] LABS: Osmolality Urine 548 mOsm/kg (300-900)
[2024-10-18 16:37] LABS: Urine Sodium 49 mmol/L (30-90)
[2024-10-18 18:53] LABS: Lactic Acid 0.8 mmol/L (0.7-2.0)
--- NOTE | 2024-10-18 23:46 | PTCARENOTE ---
pt is aaox3, no c/o pain. denies any dizziness at this time. pt watching tv w/ call jimenez in reach.
[2024-10-19] VITALS (17 sets, daily range): BP systolic 105–128; BP diastolic 57–83; PULSE 103–132; O2SAT 97; BMI 20.2
[2024-10-19 04:50] LABS: % Basophils 0.1 % (0-2); % Eosinophils 0.1 % (0-6); % Immature Granulocytes 0.4 % (0-0.5); % Lymphocytes 6.6 % (20.5-51.1); % Monocytes 6.1 % (1.7-9.3); % Neutrophils 86.7 % (42.2-75.2); Absolute Lymphocytes 0.5 10^3/uL (1.2-3.4); Absolute Monocytes 0.4 10^3/uL (0.1-0.6); Absolute Neutrophils 6.1 10^3/uL (1.4-6.5); Hematocrit 35.5 % (39.0-52.0); Hemoglobin 12.9 g/dL (13.0-18.0); Mean Corp Hgb Conc. 36.3 g/dL (33.0-37.0); Mean Corpuscular Hgb 30.9 pg (27.0-31.0); Mean Corpuscular Volume 85.1 fL (80.0-94.0); Mean Platelet Volume 10.1 fL (7.4-10.4); Nucleated Red Blood Cells % 0 % (-); Platelet Count 405 10^3/uL (130-400); Red Blood Cell Count 4.17 10^6/uL (4.70-6.10); Red Cell Dist. Width 12.6 % (11.5-14.5); White Blood Cell Count 7.1 10^3/uL (4.8-10.8)
[2024-10-19 05:01] LABS: ALT (SGPT) 13 U/L (0-50); AST (SGOT) 15 U/L (17-59); Albumin 3.6 g/dl (3.5-5.0); Alkaline Phosphatase 81 U/L (38-126); Blood Urea Nitrogen 48 mg/dl (9-20); Calcium 8.9 mg/dl (8.4-10.2); Carbon Dioxide 16 mmol/L (22-30); Chloride 97 mmol/L (98-107); Estimated Creatinine Clearance 68 ml/min; Glucose 133 mg/dl (70-99); Potassium 5.5 mmol/L (3.5-5.1); Sodium 124 mmol/L (135-145); eGFR > 60.00
[2024-10-19] MEDS: SYNTHROID 75 MCG PO (05:20)
[2024-10-19] MEDS: SOLU-CORTEF 50 MG IV ×3 (05:21→21:30)
[2024-10-19] MEDS: LOKELMA 10 GRAM PO (05:26)
--- NOTE | 2024-10-19 05:34 | PTCARENOTE ---
Updated PAEDIATRICIAN Lauren Cisneros re: lab results - [facility] ordered and given.
--- NOTE | 2024-10-19 08:29 | W.PN.HOSP.TC ---
Today's Communication/Plan
-
see A/P
Assessment / Plan
Assessment / Plan
58-year-old male with past medical history significant for adrenal insufficiency, [place]'s disease, chronic abdominal pain, hypothyroidism, admitted here February and April 2024 secondary to adrenal insufficiency, hypovolemia, and adrenal crisis
from noncompliance with medications, who presented to the emergency department secondary to a syncope episode that was unwitnessed after walking up a flight of steps.
Of note, he has had similar episodes in the past due to hypotension and adrenal insufficiency.
He has had decreased oral intake over the past 1 week secondary to GI upset, mid-abdominal pain, nausea, anorexia, and decreased oral intake.
He denies any chest pain, no shortness of breath, no diarrhea, no dysuria. He has not had any recent travel nor sick contacts. He has been taking his outpatient hydrocortisone.
In the emergency department he received hydrocortisone 100 mg IV once, IV fluid bolus, with improvement in his blood pressure from 77/59 mmHg and 58/33 mmHg up to 96/66.
A/P:
# Syncope likely due to hypovolemic shock secondary to adrenal crisis from [place]'s disease, and possible volume depletion from decreased oral intake, abdominal pain, and vomiting
Status post IV fluid bolus and 100 mg IV of hydrocortisone in the emergency department
Cont IV hydrocortisone, adjust 50 mg Q6H to Q8H
Cont IVF with bicarb
CT AP for N/V, noted: Mild to moderate circumferential wall thickening in the distal esophagus with mild esophageal distention and periesophageal edema. Diagnostic possibilities are (1) reflux esophagitis or (2) esophageal carcinoma/ Large amount of
fecal material in the proximal colon suggesting constipation. Moderate distention of the urinary bladder.
GI on board
Noted TSH high at 10.7, FT4 at 1.29
Follow blood culture x2, cover with empiric Ceftriaxone for now
# Acute kidney injury
# metabolic acidosis
creatinine 2.2 -> 1.2 today, from baseline of 0.8
IVF as above
# Hyponatremia
# hyperkalemia with metabolic acidosis
likely secondary to adrenal insufficiency/crisis with KASSIE and volume depletion
K 6.7 on admission, treated with sodium bicarbonate, calcium gluconate, dextrose, insulin, Lokelma
K level today 5.5
Nephro on board
# Hypothyroidism
TSH high at 10.7, FT4 at 1.29
Cont Synthroid , questionable compliance although pt states that he is compliant
outpt follow up with credit department manager
# Constipation, likely contributing to abdominal pain, anorexia
started bowel regimen
# Reflux esophagitis vs esophageal carcinoma
start IV PPI
GI on board
Cleared for full liquid
# Distended urinary bladder
UA not suggestive of UTI
Bladder scan per protocol, straight cath if needed (so far no need)
Other findings on CT AP:
- Moderately enlarged prostate gland.
- Moderate multilevel lumbar discogenic degenerative disease.
- Severe bilateral facet joint arthrosis at L5/S1.
- Transitional lumbosacral vertebral segment.
Findings on CT facial bones
Mild preseptal soft tissue swelling over the left orbit. Severe mucosal disease in the left frontal sinus. Moderate mucosal disease in the left maxillary sinus and left ethmoid air cells. Severe left deviation of the nasal septum. Severe discogenic
degenerative disease at C4/C5 and C5/C6.
DVT proph-heparin SQ BID
Full Code
PT OT eval
DW RN
total time spent 51 min
Anticipated Discharge: > 48 hours
Subjective/Interval History
-
Date of Service: October 19, 2024
Objective Data
-
Labs:
Laboratory Results
10/19/24
04:00
WBC 7.1
Hgb 12.9 L D
Hct 35.5 L
Plt Count 405 H
Sodium 124 L
Potassium 5.5 H
Chloride 97 L
Carbon Dioxide 16 L
BUN 48 H
Creatinine 1.2
Glucose 133 H
Calcium 8.9
Total Bilirubin 1.0
AST 15 L
ALT 13
Alkaline Phosphatase 81
Vital Signs:
Vital Signs
Temp Pulse Resp BP Pulse Ox
36.8 C 98 17 123/70 99
10/19/24 06:41 10/19/24 06:00 10/19/24 06:00 10/19/24 06:00 10/19/24 06:00
I&O
10/18/24 10/19/24 10/20/24
06:59 06:59 06:59
Intake Total 400 / 400
Output Total 1824 / 1824
Balance -1425 / -1425
Review of Systems
-
History Source: Family
Abdomen/GI: Reports Abdominal Pain (mild abd pain )
Physical Exam
-
General: Well Developed, No Apparent Distress, Comfortable and Conversant
HEENT: Normocephalic and Anicteric; Negative Oxygen
Respiratory: Clear to Auscultation and Non Labored Respirations; Negative Accessory Resp Muscle Use
Cardiac: Regular Rhythm and S1/S2
GI: Soft, Nontender, Nondistended and Normal Bowel Sounds
Musculoskeletal: No Clubbing, No Cyanosis and No Edema
Skin: Warm and Dry
Neuro: Awake and Alert
Psych: Calm and Intact Judgement/Insight (somewhat)
Data Reviewed
-
Labs: Labs Reviewed by me
--- NOTE | 2024-10-19 08:31 | W.PN.GI.CBS2 ---
Today's Communication / Plan
-
-Abdominal discomfort, nausea and vomiting with CT scan showing mild to moderate distal esophageal wall thickening, rule out esophagitis versus malignancy
Esophagitis is high on the list given recent episode of nausea and vomiting.� Currently on clear liquid diet, no vomiting, okay to advance to full liquid diet and low residue diet as tolerated
Continue Protonix 40 mg IV twice daily.
Upper endoscopy once sodium is corrected
- History of adrenal insufficiency, currently monitored by nephrology.
Sodium 124, bicarb 16 once electrolytes are corrected, plan for an upper endoscopy.
-chronic constipation, continue MiraLAX 1 capful daily.
-Elevated total bilirubin, mainly indirect bilirubin.� Liver looks normal on CT scan except liver cysts noted.� Pancreas looks normal.
Assessment / Plan
-
58-year-old male with past medical history of [place]'s disease (on hydrocortisone) and hypothyroidism who was admitted here February and April 2024 secondary to adrenal insufficiency, hypovolemia, and adrenal crisis from noncompliance with
medications, who presented to the emergency department secondary to an unwitnessed syncopal episode with complaints of nausea, vomiting, abdominal pain for the past week. These GI symptoms have been improving. CT abdomen/pelvis showed wall
thickening of the distal esophagus with periesophageal edema and esophageal distension and GI is consulted for further evaluation. He has never had an EGD or colonoscopy. IV PPI has been started.
IMPRESSION / PLAN:
-Abdominal discomfort, nausea and vomiting with CT scan showing mild to moderate distal esophageal wall thickening, rule out esophagitis versus malignancy
Esophagitis is high on the list given recent episode of nausea and vomiting.� Currently on clear liquid diet, no vomiting, okay to advance to full liquid diet and low residue diet as tolerated
Continue Protonix 40 mg IV twice daily.
Upper endoscopy once sodium is corrected
- History of adrenal insufficiency, currently monitored by nephrology.
Sodium 124, bicarb 16 once electrolytes are corrected, plan for an upper endoscopy.
-chronic constipation, continue MiraLAX 1 capful daily.
-Elevated total bilirubin, mainly indirect bilirubin.� Liver looks normal on CT scan except liver cysts noted.� Pancreas looks normal.
Subjective
Subjective
Date of Service: October 19, 2024
Patient without any abdominal pain, nausea or vomiting. Had a bowel movement yesterday which was normal in the emergency room as per patient. Able to tolerate clear liquid diet.
Objective
Data Reviewed
Laboratory Data:
Laboratory Results
10/19/24 04:00
10/19/24 04:00
Laboratory Results
Magnesium 2.5 mg/dl (1.6-2.3) H 10/18/24 04:39
Total Bilirubin 1.0 mg/dl (0.2-1.3) 10/19/24 04:00
AST 15 U/L (17-59) L 10/19/24 04:00
ALT 13 U/L (0-50) 10/19/24 04:00
Alkaline Phosphatase 81 U/L (38-126) 10/19/24 04:00
Lipase 147 U/L (23-300) 10/18/24 04:39
Vital Signs and I&O:
Vital Signs
Temp Pulse Resp BP Pulse Ox
98.3 F 98 17 123/70 99
10/19/24 06:41 10/19/24 06:00 10/19/24 06:00 10/19/24 06:00 10/19/24 06:00
I&O
10/18/24 10/19/24 10/20/24
06:59 06:59 06:59
Intake Total 400 / 400
Output Total 1825 / 1825
Balance -1425 / -1425
Physical Exam
Physical Exam
GI: Soft, Non Distended and Non Tender
[2024-10-19] MEDS: NSS (PRESERVATIVE FREE) 10 ML IV ×2 (08:52→20:11)
[2024-10-19] MEDS: HEPARIN 5000 UNITS SC ×3 (08:52→23:01)
[2024-10-19] MEDS: MIRALAX 17 GRAMS PO (08:52)
[2024-10-19] MEDS: PROTONIX IV 40 MG IV ×2 (08:52→20:11)
[2024-10-19] MEDS: SENNA SYRUP 8.8 MG PO ×2 (08:52→20:11)
[2024-10-19] MEDS: COLACE 100 MG PO ×2 (08:53→20:11)
[2024-10-19] MEDS: SODIUM BICARBONATE 1075 MEQ IV (10:18)
--- NOTE | 2024-10-19 10:59 | CON.MD ---
Consultation - Medical
-
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 Cano, and who still follows with him. Hx also pertinent for hypothyroidism, chronic abd pain who is admitted with syncope with fall and mild head contusion. Noted to
be in adrenal crisis and IV stress dose HC started. Pt takes 10 mg / 5 mg HC at home, and takes his fludrocortisone 'now and then'. No emesis or diarrhea actively. Pt with significant hyponatremia and hyperkalemia. Gi evaluation ongoing and suspect
esophagitis with plans tentatively for endoscopy. Appears clinically well this am and normally conversant. I advised beginning fludrocotisone back 0.1 mg daily starting now. I emphasized to him the importance of taking his fludrocortisone daily,
alongside his hydrocortisone to lower the risk of similar occurrences in the future. His HC dose as outpatient I would increase to 20 mg/ 10 mg daily. He will need to arrange soon outpatient follow up with Dr. Cano, who will determine if the
higher dose of outpt HC is appropriate for him fpc. TSH elevated on admission, which is to be expected and I would advise no changes to LT4 therapy. Thank you and please call with questions.
--- NOTE | 2024-10-19 13:25 | W.PN.NEPH.PH ---
Today's Communication / Plan
-
Initiate oral sodium bicarb
Hypertonic saline to be provide
Assessment/Plan
-
Impression:
KASSIE
Hyponatremia
Hyperkalemia
Metabolic acidosis AG 15 (gapped and non gapped)
Syncope
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
Hypothyroidism
Reflux esophagitis suspicion
Plan:
KASSIE:
- Likely prerenally mediated due to compromised hemodynamics in setting of possible adrenal crisis and/or volume depletion
-improving to 1.2
-Check postvoid bladder scan to evaluate for possible obstructive process given moderately distended bladder and enlarged prostate on CT
-Cultures negative
-Accurate I's and Os
Hyponatremia:
-This has been a recurrent issue for the patient and is likely due to decreased effective circulating volume
-Continue fludrocortisone and hydrocortisone support, follow-up BMP later this afternoon
-Fluid restriction at 48 ounces for now
-Check urine osmolality 548
- Will provide hypertonic saline 250 cc
Hyperkalemia:
- Likely precipitated by acute kidney injury and metabolic acidosis
--Continue 3 doses of Lokelma
-Alkaline IV fluids
Metabolic acidosis:
- Likely precipitated by acute kidney injury
-Check lactic acid: normal
-will provide oral sodium bicarbonate
-
-
Date of Service: October 19, 2024
CC / HPI / ROS
-
Chief Complaint:
Hyponatremia
KASSIE
Metabolic acidosis
History of Present Illness:
Potassium at 5.5 following Lokelma administration
Hemodynamically stable
Creatinine down to 1.2
Metabolic acidosis improving to 16
Serum sodium level unchanged at 124
Review of Systems:
Nonoliguric
No fevers
No chest pain or shortness of
Labs
-
Labs:
WBC 7.1 10^3/uL (4.8-10.8) 10/19/24 04:00
RBC 4.17 10^6/uL (4.70-6.10) L 10/19/24 04:00
Hgb 12.9 g/dL (13.0-18.0) L D 10/19/24 04:00
Hct 35.5 % (39.0-52.0) L 10/19/24 04:00
Plt Count 405 10^3/uL (130-400) H 10/19/24 04:00
Sodium 124 mmol/L (135-145) L 10/19/24 04:00
Potassium 5.5 mmol/L (3.5-5.1) H 10/19/24 04:00
Chloride 97 mmol/L (98-107) L 10/19/24 04:00
Carbon Dioxide 16 mmol/L (22-30) L 10/19/24 04:00
BUN 48 mg/dl (9-20) H 10/19/24 04:00
Creatinine 1.2 mg/dL (0.7-1.3) 10/19/24 04:00
eGFR > 60.00 10/19/24 04:00
Glucose 133 mg/dl (70-99) H 10/19/24 04:00
Calcium 8.9 mg/dl (8.4-10.2) 10/19/24 04:00
Albumin 3.6 g/dl (3.5-5.0) 10/19/24 04:00
Physical Exam
-
Vital Signs:
Vital Signs
Temp Pulse Resp BP Pulse Ox
98.3 F 98 17 123/70 99
10/19/24 06:41 10/19/24 06:00 10/19/24 06:00 10/19/24 06:00 10/19/24 06:00
Cardiovascular:: Regular rate and rhythm
Respiratory:: Bilateral: CTA
Lung Excursion:: Normal
Abdomen:: Soft
Bowel Sounds:: Normal
Extremity Edema:: None: Bilateral:
Mccain Catheter: No
[2024-10-19] MEDS: ROCEPHIN 1000 MG IV (14:06)
[2024-10-19] MEDS: STERILE WATER FOR INJECTION 10 ML IV (14:06)
[2024-10-19] MEDS: FLORINEF 0.1 MG PO (14:06)
[2024-10-19] MEDS: SODIUM CHLORIDE 3% 250 IV (15:10)
--- NOTE | 2024-10-19 15:59 | PTCARENOTE ---
Pt's assessment as documented. Aox3. NSR on tele monitor. IVF infusing as ordered. Ringing appropriately, call jimenez within reach.
[2024-10-19] MEDS: SODIUM BICARBONATE 650 MG PO ×2 (16:37→21:30)
[2024-10-20] VITALS (13 sets, daily range): BP systolic 105–132; BP diastolic 62–84
--- NOTE | 2024-10-20 01:21 | PTCARENOTE ---
3% infusion completed. Scheduled medications given per JUL. Pt without complaints at this time. Bed alarm remains in place for pt safety. Call jimenez within reach.
[2024-10-20] MEDS: SOLU-CORTEF 50 MG IV ×3 (05:31→23:37)
[2024-10-20] MEDS: SYNTHROID 75 MCG PO (05:31)
[2024-10-20 06:23] LABS: % Eosinophils 0.2 % (0-6); % Immature Granulocytes 0.2 % (0-0.5); % Lymphocytes 22.4 % (20.5-51.1); % Monocytes 14.7 % (1.7-9.3); % Neutrophils 62.5 % (42.2-75.2); Absolute Lymphocytes 1.1 10^3/uL (1.2-3.4); Absolute Monocytes 0.7 10^3/uL (0.1-0.6); Hematocrit 31.7 % (39.0-52.0); Hemoglobin 11.7 g/dL (13.0-18.0); Mean Corp Hgb Conc. 36.9 g/dL (33.0-37.0); Mean Corpuscular Hgb 32.2 pg (27.0-31.0); Mean Corpuscular Volume 87.3 fL (80.0-94.0); Nucleated Red Blood Cells % 0 % (-); Platelet Count 323 10^3/uL (130-400); Red Blood Cell Count 3.63 10^6/uL (4.70-6.10); Red Cell Dist. Width 12.3 % (11.5-14.5); White Blood Cell Count 4.8 10^3/uL (4.8-10.8)
[2024-10-20 06:29] LABS: Blood Urea Nitrogen 27 mg/dl (9-20); Calcium 8.3 mg/dl (8.4-10.2); Carbon Dioxide 23 mmol/L (22-30); Chloride 102 mmol/L (98-107); Estimated Creatinine Clearance 88 ml/min; Glucose 133 mg/dl (70-99); Potassium 4.5 mmol/L (3.5-5.1); Sodium 129 mmol/L (135-145); eGFR > 60.00
[2024-10-20] MEDS: SENNA SYRUP 8.8 MG PO ×2 (07:54→20:54)
[2024-10-20] MEDS: MIRALAX 17 GRAMS PO (07:54)
[2024-10-20] MEDS: COLACE 100 MG PO ×2 (07:54→20:54)
[2024-10-20] MEDS: PROTONIX IV 40 MG IV ×2 (07:55→20:57)
[2024-10-20] MEDS: HEPARIN 5000 UNITS SC ×3 (07:55→23:38)
[2024-10-20] MEDS: SODIUM BICARBONATE 650 MG PO ×3 (07:55→23:37)
--- NOTE | 2024-10-20 07:55 | W.PN.HOSP.TC ---
Today's Communication/Plan
-
see A/P
Assessment / Plan
Assessment / Plan
58-year-old male with past medical history significant for adrenal insufficiency, [place]'s disease, chronic abdominal pain, hypothyroidism, admitted here February and April 2024 secondary to adrenal insufficiency, hypovolemia, and adrenal crisis
from noncompliance with medications, who presented to the emergency department secondary to a syncope episode that was unwitnessed after walking up a flight of steps.
Of note, he has had similar episodes in the past due to hypotension and adrenal insufficiency.
He has had decreased oral intake over the past 1 week secondary to GI upset, mid-abdominal pain, nausea, anorexia, and decreased oral intake.
He denies any chest pain, no shortness of breath, no diarrhea, no dysuria. He has not had any recent travel nor sick contacts. He has been taking his outpatient hydrocortisone.
In the emergency department he received hydrocortisone 100 mg IV once, IV fluid bolus, with improvement in his blood pressure from 77/59 mmHg and 58/33 mmHg up to 96/66.
A/P:
# Syncope likely due to hypovolemic shock secondary to adrenal crisis from [place]'s disease, and possible volume depletion from decreased oral intake, abdominal pain, and vomiting
Status post IV fluid bolus and 100 mg IV of hydrocortisone in the emergency department
Cont stress dose steroid: IV hydrocortisone adjusted to 50 mg Q8H, anticipate switching to [employer] steroid soon
added fludrocortisone
s/p IVF with bicarb
CT AP for N/V, noted: Mild to moderate circumferential wall thickening in the distal esophagus with mild esophageal distention and periesophageal edema. Diagnostic possibilities are (1) reflux esophagitis or (2) esophageal carcinoma/ Large amount of
fecal material in the proximal colon suggesting constipation. Moderate distention of the urinary bladder.
GI on board
Noted TSH high at 10.7, FT4 at 1.29
blood culture x2 negative, urine culture negative, DC further empiric Ceftriaxone (received 2 days)
# Acute kidney injury, resolved
# metabolic acidosis, resolved
creatinine 2.2 -> 0.9 today, baseline of 0.8
s/p IVF
# Hyponatremia
# hyperkalemia with metabolic acidosis , resolved
electrolyte abnormalities likely secondary to adrenal insufficiency/crisis with KASSIE and volume depletion
hyperkalemia treated
s/p hypertonic IVF for Hyponatremia
Nephro on board
# Hypothyroidism
TSH high at 10.7, FT4 at 1.29
Cont Synthroid , questionable compliance although pt states that he is compliant
recc outpt follow up with police manager
# Constipation, likely contributing to abdominal pain, anorexia
started bowel regimen
# Reflux esophagitis vs esophageal carcinoma
start IV PPI
GI on board, Cleared for full liquid
pt endorses to difficulty with swallowing, SPL eval and GI to assess
# Distended urinary bladder
UA not suggestive of UTI
Bladder scan per protocol, straight cath if needed (so far no need)
Other findings on CT AP:
- Moderately enlarged prostate gland.
- Moderate multilevel lumbar discogenic degenerative disease.
- Severe bilateral facet joint arthrosis at L5/S1.
- Transitional lumbosacral vertebral segment.
Findings on CT facial bones
Mild preseptal soft tissue swelling over the left orbit. Severe mucosal disease in the left frontal sinus. Moderate mucosal disease in the left maxillary sinus and left ethmoid air cells. Severe left deviation of the nasal septum. Severe discogenic
degenerative disease at C4/C5 and C5/C6.
DVT proph-heparin SQ BID
Full Code
PT OT eval cleared for home
DW RN
Anticipated Discharge: 24 - 48 hours
Subjective/Interval History
-
Date of Service: October 20, 2024
Objective Data
-
Labs:
Laboratory Results
10/20/24
05:40
WBC 4.8
Hgb 11.7 L
Hct 31.7 L
Plt Count 323 D
Sodium 129 L
Potassium 4.5
Chloride 102
Carbon Dioxide 23
BUN 27 H
Creatinine 0.9
Glucose 133 H
Calcium 8.3 L
Vital Signs:
Vital Signs
Temp Pulse Resp BP Pulse Ox
36.7 C 77 17 106/62 97
10/20/24 03:55 10/20/24 06:00 10/20/24 06:00 10/20/24 06:00 10/20/24 06:00
I&O
10/19/24 10/20/24 10/21/24
06:59 06:59 06:59
Intake Total 400 / 400 480 / 480
Output Total 1825 / 1825 1470 / 1470
Balance -1425 / -1425 -990 / -990
Review of Systems
-
History Source: Family
Abdomen/GI: Reports Other (difficulty with swallowing )
Physical Exam
-
General: Well Developed, No Apparent Distress, Comfortable and Conversant
HEENT: Normocephalic and Anicteric; Negative Oxygen
Respiratory: Clear to Auscultation and Non Labored Respirations; Negative Accessory Resp Muscle Use
Cardiac: Regular Rhythm and S1/S2
GI: Soft, Nontender, Nondistended and Normal Bowel Sounds
Musculoskeletal: No Clubbing, No Cyanosis and No Edema
Skin: Warm and Dry
Neuro: Awake and Alert
Psych: Calm and Intact Judgement/Insight (somewhat)
Data Reviewed
-
Labs: Labs Reviewed by me
[2024-10-20] MEDS: NSS (PRESERVATIVE FREE) 10 ML IV ×2 (07:56→20:54)
[2024-10-20] MEDS: FLORINEF 0.1 MG PO (07:59)
--- NOTE | 2024-10-20 13:57 | W.PN.NEPH.PH ---
Today's Communication / Plan
-
sodium better at 129 ok to proceed EGD as planned by GI
Assessment/Plan
-
Impression:
KASSIE
Hyponatremia
Hyperkalemia
Metabolic acidosis AG 15 (gapped and non gapped)
Syncope
[place]'s disease with possible adrenal crisis
Hypothyroidism
Reflux esophagitis suspicion
Plan:
KASSIE:
- Likely prerenally mediated due to compromised hemodynamics in setting of possible adrenal crisis and/or volume depletion
-improving to 0.9
follow bladder scan with BPH last PVR 365cc
Hyponatremia: improving to 129 post 3%
-This has been a recurrent issue for the patient and is likely due to decreased effective circulating volume
-Continue fludrocortisone and hydrocortisone support, follow-up BMP later this afternoon
-Fluid restriction at 48 ounces for now
urine osmolality 548
Hyperkalemia: improved post IVF and Lokelma
Metabolic acidosis: improved , if remains stable likely wean down po bicarb
EGD timing per GI
HC and FLorinef managed by endo
d/w pt
-
-
Date of Service: October 20, 2024
CC / HPI / ROS
-
Chief Complaint:
Hyponatremia
KASSIE
Metabolic acidosis
History of Present Illness:
Potassium better at 4.5 following Lokelma administration
Hemodynamically stable
Creatinine down to 0.9
Metabolic acidosis improving to 23
Serum sodium level unchanged at 129 s/p HTS
Review of Systems:
Nonoliguric
No fevers
No chest pain or shortness of breath
still dysphagia
Labs
-
Labs:
WBC 4.8 10^3/uL (4.8-10.8) 10/20/24 05:40
RBC 3.63 10^6/uL (4.70-6.10) L 10/20/24 05:40
Hgb 11.7 g/dL (13.0-18.0) L 10/20/24 05:40
Hct 31.7 % (39.0-52.0) L 10/20/24 05:40
Plt Count 323 10^3/uL (130-400) D 10/20/24 05:40
Sodium 129 mmol/L (135-145) L 10/20/24 05:40
Potassium 4.5 mmol/L (3.5-5.1) 10/20/24 05:40
Chloride 102 mmol/L (98-107) 10/20/24 05:40
Carbon Dioxide 23 mmol/L (22-30) 10/20/24 05:40
BUN 27 mg/dl (9-20) H 10/20/24 05:40
Creatinine 0.9 mg/dL (0.7-1.3) 10/20/24 05:40
eGFR > 60.00 10/20/24 05:40
Glucose 133 mg/dl (70-99) H 10/20/24 05:40
Calcium 8.3 mg/dl (8.4-10.2) L 10/20/24 05:40
Albumin 3.6 g/dl (3.5-5.0) 10/19/24 04:00
Physical Exam
-
Vital Signs:
Vital Signs
Temp Pulse Resp BP Pulse Ox
97.6 F 73 20 115/73 96
10/20/24 07:35 10/20/24 12:00 10/20/24 12:00 10/20/24 12:00 10/20/24 12:00
Cardiovascular:: Regular rate and rhythm
Respiratory:: Bilateral: CTA
Lung Excursion:: Normal
Abdomen:: Nontender and Soft
Bowel Sounds:: Normal
Extremity Edema:: None: Bilateral:
Mccain Catheter: No
--- NOTE | 2024-10-20 15:25 | PTOTSP ---
Speech Language Pathology
Pt seen for clinical bedside swallow evaluation. P.O. trials of thin liquids provided. Also trialed small amount of puree and regular solids for evaluation purposes only. Pt complaining of globus sensation with all consistencies, initially at
level of sternal notch, then reported this descended to mid-chest, before eventually clearing. Pt stated this happened last time he was in the hospital and spontaneously resolved. Slight wet voice at times following P.O. intake with cough x2.
Question regurgitation. GI on board with plan for possible EGD tomorrow pending Na level.
Recommend:
(1) Continue thin liquids (full liquids ordered by MD)
(2) Aspiration precautions: sit upright, slow rate, take break if coughing noted or if globus sensation does not clear
(3) If EGD does not happen tomorrow, consider VSE to rule out pharyngeal dysphagia
(4) Meds as tolerated
(5) TOOL AND DIE REPAIR to continue to follow
[2024-10-20 16:31] LABS: Sodium 128 mmol/L (135-145)
--- NOTE | 2024-10-20 18:37 | PTCARENOTE ---
see nursing flowsheet. pt currently oob with assist of one in chair. denies dizziness. repeat sodium this afternoon 128. seen by speech for reports of swallowing difficultyu. liquid diet maintained. fluid restriction maintained.
--- NOTE | 2024-10-20 19:42 | W.PN.GI.CBS2 ---
Today's Communication / Plan
-
-Abdominal discomfort, nausea and vomiting with CT scan showing mild to moderate distal esophageal wall thickening, rule out esophagitis versus malignancy
Esophagitis is high on the list given recent episode of nausea and vomiting.� Currently on fullliquid diet, no vomiting.Hold off on advancing diet further as pt feels full liquid diet is going down slowly
Continue Protonix 40 mg IV twice daily.
Upper endoscopy once sodium is corrected -abt 133-134
- History of adrenal insufficiency, currently monitored by nephrology.
Sodium 124, bicarb 16 once electrolytes are corrected, plan for an upper endoscopy.
-chronic constipation, continue MiraLAX 1 capful daily.
-Elevated total bilirubin, mainly indirect bilirubin.� Liver looks normal on CT scan except liver cysts noted.� Pancreas looks normal.
Assessment / Plan
-
58-year-old male with past medical history of [place]ak[place]'s disease (on hydrocortisone) and hypothyroidism who was admitted here February and April 2024 secondary to adrenal insufficiency, hypovolemia, and adrenal crisis from noncompliance with
medications, who presented to the emergency department secondary to an unwitnessed syncopal episode with complaints of nausea, vomiting, abdominal pain for the past week. These GI symptoms have been improving. CT abdomen/pelvis showed wall
thickening of the distal esophagus with periesophageal edema and esophageal distension and GI is consulted for further evaluation. He has never had an EGD or colonoscopy. IV PPI has been started.
IMPRESSION / PLAN:
-Abdominal discomfort, nausea and vomiting with CT scan showing mild to moderate distal esophageal wall thickening, rule out esophagitis versus malignancy
Esophagitis is high on the list given recent episode of nausea and vomiting.� Currently on full liquid diet, no vomiting.
Continue Protonix 40 mg IV twice daily.
Upper endoscopy once sodium is corrected -abt 133-134
- History of adrenal insufficiency, currently monitored by nephrology.
Sodium 124, bicarb 16 once electrolytes are corrected, plan for an upper endoscopy.
-chronic constipation, continue MiraLAX 1 capful daily.
-Elevated total bilirubin, mainly indirect bilirubin.� Liver looks normal on CT scan except liver cysts noted.� Pancreas looks normal.
Subjective
Subjective
Date of Service: October 20, 2024
Pt on full liquid diet, feels like its going down slow but notstuck, no abdominal pain,nausea, vomiting
Objective
Data Reviewed
Laboratory Data:
Laboratory Results
10/20/24 05:40
10/20/24 15:57
Laboratory Results
Magnesium 2.5 mg/dl (1.6-2.3) H 10/18/24 04:39
Total Bilirubin 1.0 mg/dl (0.2-1.3) 10/19/24 04:00
AST 15 U/L (17-59) L 10/19/24 04:00
ALT 13 U/L (0-50) 10/19/24 04:00
Alkaline Phosphatase 81 U/L (38-126) 10/19/24 04:00
Lipase 147 U/L (23-300) 10/18/24 04:39
Vital Signs and I&O:
Vital Signs
Temp Pulse Resp BP Pulse Ox
98.2 F 80 19 115/84 97
10/20/24 15:30 10/20/24 18:00 10/20/24 18:00 10/20/24 18:00 10/20/24 18:00
I&O
10/19/24 10/20/24 10/21/24
06:59 06:59 06:59
Intake Total 400 / 400 480 / 480 720 / 720
Output Total 1825 / 1825 1470 / 1470 500 / 500
Balance -1425 / -1425 -990 / -990 220 / 220
Physical Exam
Physical Exam
GI: Soft, Non Distended and Non Tender
[2024-10-21] VITALS (26 sets, daily range): BP systolic 97–159; BP diastolic 35–129; PULSE 76–110; O2SAT 97; BMI 18.8
--- NOTE | 2024-10-21 03:11 | PTCARENOTE ---
[facility] aaox3. standby assist oob. npo at midnight. assessment as documented. call light in reach.
[2024-10-21 05:06] LABS: Hematocrit 33.3 % (39.0-52.0); Hemoglobin 12.2 g/dL (13.0-18.0); Mean Corp Hgb Conc. 36.6 g/dL (33.0-37.0); Mean Corpuscular Hgb 32.5 pg (27.0-31.0); Mean Corpuscular Volume 88.8 fL (80.0-94.0); Mean Platelet Volume 10.4 fL (7.4-10.4); Platelet Count 319 10^3/uL (130-400); Red Blood Cell Count 3.75 10^6/uL (4.70-6.10); Red Cell Dist. Width 12.2 % (11.5-14.5)
[2024-10-21 05:28] LABS: Blood Urea Nitrogen 19 mg/dl (9-20); Carbon Dioxide 25 mmol/L (22-30); Chloride 100 mmol/L (98-107); Estimated Creatinine Clearance 93 ml/min; Glucose 111 mg/dl (70-99); Magnesium 1.9 mg/dl (1.6-2.3); Potassium 4.8 mmol/L (3.5-5.1); Sodium 131 mmol/L (135-145); eGFR > 60.00
[2024-10-21] MEDS: SOLU-CORTEF 50 MG IV ×3 (06:13→17:02)
[2024-10-21] MEDS: SYNTHROID PO (06:13)
[2024-10-21] MEDS: HEPARIN 5000 UNITS SC ×2 (07:59→16:09)
[2024-10-21] MEDS: NSS (PRESERVATIVE FREE) 10 ML IV ×2 (07:59→20:47)
[2024-10-21] MEDS: PROTONIX IV 40 MG IV ×2 (07:59→20:48)
[2024-10-21] MEDS: SENNA SYRUP 8.8 MG PO (11:53)
[2024-10-21] MEDS: FLORINEF 0.1 MG PO (11:53)
[2024-10-21] MEDS: COLACE 100 MG PO ×2 (11:53)
[2024-10-21] MEDS: MIRALAX 17 GRAMS PO (11:54)
[2024-10-21] MEDS: SODIUM BICARBONATE 650 MG PO (11:54)
--- NOTE | 2024-10-21 13:11 | PTOTSP ---
Speech Language Pathology
Pt seen for dysphagia tx. EGD completed this AM, and notes state pt may resume diet after DETAILER FURNITURE re-evaluates. Seen with P.O. trials of thin liquids, puree, and regular solids. Adequate mastication, bolus formation, and A-P transit noted with no
oral residue. Pt reported globus sensation significantly reduced compared to yesterday, but still present to a slight degree. Slight wet breath noted at times without overt coughing.
Recommend:
(1) Regular solids/thin liquids
(2) General aspiration precautions and esophageal precautions
(3) Meds as tolerated
(4) If any issues, will complete VSE. If tolerates well, will likely be brief follow up with sign off
--- NOTE | 2024-10-21 14:49 | W.PN.HOSP.TC ---
Today's Communication/Plan
-
wean IV steroids and transition to PO hydrocortisone tomorrow
continue Fludrocortisone
continue PPI
Assessment / Plan
Assessment / Plan
Assessment:
Syncope likely due to hypovolemic shock secondary to adrenal crisis from [place]'s disease, and possible volume depletion from decreased oral intake, abdominal pain, and vomiting
- Status post IV fluid bolus and 100 mg IV of hydrocortisone in the emergency department
- Cont stress dose steroid: wean to HC IV q12h and transition to oral tomorrow
- continue fludrocortisone
- s/p IVF with bicarb
- CT AP for N/V, noted: Mild to moderate circumferential wall thickening in the distal esophagus with mild esophageal distention and periesophageal edema. Diagnostic possibilities are (1) reflux esophagitis or (2) esophageal carcinoma/ Large amount
of fecal material in the proximal colon suggesting constipation. Moderate distention of the urinary bladder.
- Noted TSH high at 10.7, FT4 at 1.29
- blood culture x2 negative, urine culture negative, DC further empiric Ceftriaxone (received 2 days)
Acute kidney injury, resolved
metabolic acidosis, resolved
- creatinine 2.2 -> 0.9 today, baseline of 0.8
- s/p IVF
Acute Hyponatremia
hyperkalemia with metabolic acidosis , resolved
- electrolyte abnormalities likely secondary to adrenal insufficiency/crisis with KASSIE and volume depletion
- hyperkalemia treated
- s/p hypertonic IVF for Hyponatremia
- Nephro on board
Hypothyroidism
- TSH high at 10.7, FT4 at 1.29
- cont Synthroid, questionable compliance although pt states that he is compliant
- recc outpt follow up with internal control consultant
Constipation, likely contributing to abdominal pain, anorexia
- started bowel regimen
Reflux esophagitis vs esophageal carcinoma
- s/p EGD 10/21: esophagitis and esophageal ulcers
- continue PPI BID
- regular diet per ST
Distended urinary bladder
- UA not suggestive of UTI
- Bladder scan per protocol, straight cath if needed (so far no need)
Other findings on CT AP
- Moderately enlarged prostate gland.
- Moderate multilevel lumbar discogenic degenerative disease.
- Severe bilateral facet joint arthrosis at L5/S1.
- Transitional lumbosacral vertebral segment.
Findings on CT facial bones
Mild preseptal soft tissue swelling over the left orbit. Severe mucosal disease in the left frontal sinus. Moderate mucosal disease in the left maxillary sinus and left ethmoid air cells. Severe left deviation of the nasal septum. Severe discogenic
degenerative disease at C4/C5 and C5/C6.
DVT ppx: SC heparin
Code: Full
Anticipated Discharge: 24 - 48 hours
Subjective/Interval History
-
Date of Service: October 21, 2024
s/p EGD
tolerating diet well no complaints
Objective Data
-
Labs:
Laboratory Results
10/21/24
04:33
WBC 5.0
Hgb 12.2 L
Hct 33.3 L
Plt Count 319
Sodium 131 L
Potassium 4.8
Chloride 100
Carbon Dioxide 25
BUN 19
Creatinine 0.8
Glucose 111 H
Calcium 9.0
Vital Signs:
Vital Signs
Temp Pulse Resp BP Pulse Ox
97.4 F 71 18 107/74 99
10/21/24 11:30 10/21/24 13:01 10/21/24 13:01 10/21/24 12:00 10/21/24 13:01
I&O
10/20/24 10/21/24 10/22/24
06:59 06:59 06:59
Intake Total 480 / 480 720 / 720
Output Total 1470 / 1470 500 / 500 300 / 300
Balance -990 / -990 220 / 220 -300 / -300
Physical Exam
-
General: No Apparent Distress
HEENT: Normocephalic and Atraumatic
Respiratory: Negative Wheezes
Cardiac: Regular Rhythm and S1/S2
GI: Soft
Genito-urinary: No Costovertebral Tender
Neuro: AO x 3
Psych: Calm
Data Reviewed
-
Total Time Spent with Patient (in minutes): 42
Labs: Labs Reviewed by me
--- NOTE | 2024-10-21 14:50 | W.PN.NEPH.PH ---
Today's Communication / Plan
-
see plan
Assessment/Plan
-
Impression:
KASSIE
Hyponatremia
Hyperkalemia
Metabolic acidosis AG 15 (gapped and non gapped)
Syncope
Ge[place]'s disease with possible adrenal crisis
Hypothyroidism
Reflux esophagitis suspicion
Plan:
KASSIE: resolved cr down to 0.8
follow bladder scan with BPH last PVR 365cc
Hyponatremia: improving to 131
Continue fludrocortisone and hydrocortisone support per endo
-Fluid restriction at 48 ounces for now
Metabolic acidosis resolved, wean off bicarb
s/p EGD today- E ulcers and mucosal nodule s/p biopsy
tolerating diet
d/c plan
BMP in 1week after d/c , f/u endo and pcp
-
-
Date of Service: October 21, 2024
CC / HPI / ROS
-
Chief Complaint:
Hyponatremia
KASSIE
Metabolic acidosis
History of Present Illness:
Potassium normal
Hemodynamically stable
Creatinine down to 0.8
Metabolic acidosis improving to 25
Serum sodium level better at 131
Review of Systems:
Nonoliguric
No fevers
No chest pain or shortness of breath
tolerating diet
Labs
-
Labs:
WBC 5.0 10^3/uL (4.8-10.8) 10/21/24 04:33
RBC 3.75 10^6/uL (4.70-6.10) L 10/21/24 04:33
Hgb 12.2 g/dL (13.0-18.0) L 10/21/24 04:33
Hct 33.3 % (39.0-52.0) L 10/21/24 04:33
Plt Count 319 10^3/uL (130-400) 10/21/24 04:33
Sodium 131 mmol/L (135-145) L 10/21/24 04:33
Potassium 4.8 mmol/L (3.5-5.1) 10/21/24 04:33
Chloride 100 mmol/L (98-107) 10/21/24 04:33
Carbon Dioxide 25 mmol/L (22-30) 10/21/24 04:33
BUN 19 mg/dl (9-20) 10/21/24 04:33
Creatinine 0.8 mg/dL (0.7-1.3) 10/21/24 04:33
eGFR > 60.00 10/21/24 04:33
Glucose 111 mg/dl (70-99) H 10/21/24 04:33
Calcium 9.0 mg/dl (8.4-10.2) 10/21/24 04:33
Albumin 3.6 g/dl (3.5-5.0) 10/19/24 04:00
Physical Exam
-
Vital Signs:
Vital Signs
Temp Pulse Resp BP Pulse Ox
97.4 F 71 18 107/74 99
10/21/24 11:30 10/21/24 13:01 10/21/24 13:01 10/21/24 12:00 10/21/24 13:01
Cardiovascular:: Regular rate and rhythm
Respiratory:: Bilateral: CTA
Lung Excursion:: Normal
Abdomen:: Nontender and Soft
Bowel Sounds:: Normal
Extremity Edema:: None: Bilateral:
Mccain Catheter: No
--- NOTE | 2024-10-21 16:00 | PTCARENOTE ---
Pt back from EGD, speech cleared for regular diet, tolerated well. Walked halls w/ stand by assist. VSS.
--- NOTE | 2024-10-21 17:01 | CM ---
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 EGD today. Room air. Receiving IV Solucortef, IV Protonix. ST Eval. Regular diet. PT/OT Evals; no d/c needs. Per nurse; A/O.
CM continuing to follow.
Plan home.
--- NOTE | 2024-10-21 20:30 | PTCARENOTE ---
Assumed care. Patient received lying still in bed with eyes closed, respirations nonlabored. Rouses easily to name called. A&O x 3. Bruise noted to left cheek and left eyelid. Denies pain when asked. See trimmer meat charted on worklist flowsheet.
SR on CM with borderline 1st degree and BBB. BBS clear. Occasional PVCs. SL right wrist does not flush easily. Infiltrated. Site dc'd, catheter intact. New IV site inserted Left FA, #20, good blood return, flushes easily. Patient ate 100% of dinner.
Bed low and in locked position, call jimenez within reach, bed alarm on.
[2024-10-21] MEDS: SENNA SYRUP PO (20:50)
--- NOTE | 2024-10-21 22:06 | PTCARENOTE ---
Vital signs pulled from 1400. Unable to verify Vitals from [id number].
[2024-10-22] VITALS (11 sets, daily range): BP systolic 101–128; BP diastolic 58–85; PULSE 93; O2SAT 98
[2024-10-22] MEDS: HEPARIN 5000 UNITS SC ×2 (00:24→07:25)
--- NOTE | 2024-10-22 04:38 | DOWNTIME ---
Addendum entered and electronically signed by Edgar Lubin RN 10/22/24 14:23:
Correction: Downtime was 10/22/2024 from 0100 to 10/22/2024 at 0415
Original Note:
There was a [employer] Client [employer] Sales Manager Downtime on 10/21/2024 from 0100 to 10/22/2024 at 0415. Downtime documentation of patient's care, including medication administrations, has been reconciled in the electronic record per guidelines. Refer to the
patient's paper chart under the miscellaneous tab to see printed paper medication records and downtime forms.
--- NOTE | 2024-10-22 04:40 | PTCARENOTE ---
Patient has slept until approx 2am and then is up watching TV. Dozing off and on intermittently. No complaints offered.
[2024-10-22 05:32] LABS: Hematocrit 32.2 % (39.0-52.0); Hemoglobin 11.7 g/dL (13.0-18.0); Mean Corp Hgb Conc. 36.3 g/dL (33.0-37.0); Mean Corpuscular Hgb 32.1 pg (27.0-31.0); Mean Corpuscular Volume 88.5 fL (80.0-94.0); Mean Platelet Volume 9.6 fL (7.4-10.4); Platelet Count 347 10^3/uL (130-400); Red Blood Cell Count 3.64 10^6/uL (4.70-6.10); Red Cell Dist. Width 12.1 % (11.5-14.5); White Blood Cell Count 8.1 10^3/uL (4.8-10.8)
[2024-10-22] MEDS: SYNTHROID 75 MCG PO (05:40)
[2024-10-22 06:05] LABS: Blood Urea Nitrogen 20 mg/dl (9-20); Calcium 7.5 mg/dl (8.4-10.2); Carbon Dioxide 22 mmol/L (22-30); Chloride 108 mmol/L (98-107); Estimated Creatinine Clearance 124 ml/min; Glucose 83 mg/dl (70-99); Potassium 3.4 mmol/L (3.5-5.1); Sodium 134 mmol/L (135-145); eGFR > 60.00
--- NOTE | 2024-10-22 06:30 | PTCARENOTE ---
Addendum entered by Kaylah Chaves RN 10/22/24 07:09:
New orders received. Mirza BARNHART updated.
Original Note:
K+ 3.4, Ca+ 7.5, Zaid REEDER notified.
--- NOTE | 2024-10-22 06:44 | W.PN.UPDATE ---
Update Note
Progress Note Update
k 3.4 repleted with 20meq POx1
Ca 7.5 corrected ca 7.4 calcium gluconate 1g IV x1
--- NOTE | 2024-10-22 07:08 | PTCARENOTE ---
Report given verbally to oncoming Mirza christian RN. Questions answered.
[2024-10-22] MEDS: KCL 20 MEQ PO (07:25)
[2024-10-22] MEDS: CORTEF 20 MG PO (07:25)
[2024-10-22] MEDS: FLORINEF 0.1 MG PO (07:25)
[2024-10-22] MEDS: COLACE 100 MG PO (07:25)
[2024-10-22] MEDS: NSS (PRESERVATIVE FREE) 10 ML IV (07:26)
[2024-10-22] MEDS: MIRALAX 17 GRAMS PO (07:26)
[2024-10-22] MEDS: PROTONIX IV 40 MG IV (07:26)
[2024-10-22] MEDS: SENNA SYRUP PO (07:30)
[2024-10-22] MEDS: CALCIUM GLUCONATE 1000 MG IV (07:43)
[2024-10-22] MEDS: KCL 40 MEQ PO (08:52)
--- NOTE | 2024-10-22 09:47 | W.PN.NEPH.PH ---
Today's Communication / Plan
-
Observe on current therapy
Assessment/Plan
-
Impression:
KASSIE
Hyponatremia
Hyperkalemia
Metabolic acidosis AG 15 (gapped and non gapped)
Syncope
[place]'s disease with possible adrenal crisis
Hypothyroidism
Reflux esophagitis suspicion
Plan:
KASSIE: resolved cr down to 0.6
follow bladder scan with BPH last PVR 365cc
Hyponatremia: improving to 134
Continue fludrocortisone and hydrocortisone support per endo
Fluid restriction at 48 ounces for now
Metabolic acidosis resolved, wean off bicarb , now on sodium bicarbonate 650mg TID
s/p EGD - E ulcers and mucosal nodule s/p biopsy
tolerating diet
d/c plan
BMP in 1week after d/c , f/u endo and pcp
-
-
Date of Service: October 22, 2024
CC / HPI / ROS
-
Chief Complaint:
Hyponatremia
KASSIE
Metabolic acidosis
History of Present Illness:
Potassium normal
Hemodynamically stable
Creatinine down to 0.6
Metabolic acidosis improving to 25
Serum sodium level better at 134
Review of Systems:
Nonoliguric
No fevers
No chest pain or shortness of breath
tolerating diet
Labs
-
Labs:
WBC 8.1 10^3/uL (4.8-10.8) 10/22/24 05:14
RBC 3.64 10^6/uL (4.70-6.10) L 10/22/24 05:14
Hgb 11.7 g/dL (13.0-18.0) L 10/22/24 05:14
Hct 32.2 % (39.0-52.0) L 10/22/24 05:14
Plt Count 347 10^3/uL (130-400) 10/22/24 05:14
Sodium 134 mmol/L (135-145) L 10/22/24 05:14
Potassium 3.4 mmol/L (3.5-5.1) L D 10/22/24 05:14
Chloride 108 mmol/L (98-107) H 10/22/24 05:14
Carbon Dioxide 22 mmol/L (22-30) 10/22/24 05:14
BUN 20 mg/dl (9-20) 10/22/24 05:14
Creatinine 0.6 mg/dL (0.7-1.3) L 10/22/24 05:14
eGFR > 60.00 10/22/24 05:14
Glucose 83 mg/dl (70-99) 10/22/24 05:14
Calcium 7.5 mg/dl (8.4-10.2) L D 10/22/24 05:14
Albumin 3.6 g/dl (3.5-5.0) 10/19/24 04:00
Physical Exam
-
Vital Signs:
Vital Signs
Temp Pulse Resp BP Pulse Ox
97.6 F 89 14 128/80 97
10/22/24 07:10 10/22/24 08:00 10/22/24 08:00 10/22/24 08:00 10/22/24 08:00
Cardiovascular:: Regular rate and rhythm
Respiratory:: Bilateral: CTA
Lung Excursion:: Normal
Abdomen:: Nontender and Soft
Bowel Sounds:: Normal
Extremity Edema:: None: Bilateral:
Mccain Catheter: No
--- NOTE | 2024-10-22 10:50 | PTOTSP ---
Speech Language Pathology
Pt seen for dysphagia tx. Pt reported good appetite with consuming 100% of breakfast. He reported that globus sensation has almost fully resolved. P.O. trials of regular solids and thin liquids provided. Adequate mastication, bolus formation,
and A-P transit noted with no oral residue. No overt signs of aspiration. Pt did not complain of globus sensation.
Recommend:
(1) Regular solids/thin liquids
(2) General aspiration precautions
(3) Meds as tolerated
(4) JOB TRACER to sign off. Please reconsult as indicated
--- NOTE | 2024-10-22 11:04 | PTCARENOTE ---
Assumed care of pt from scene shifter RN. [email or web address]. NSR/ST on tele, HRs 80s-120s. SpO2 100% on room air. VSS. Pt able to have BM this morning. Assessment documented. Pt resting in bed, call jimenez in reach. Bed alarm in place.
--- NOTE | 2024-10-22 13:06 | W.PN.GI.CBS2 ---
Addendum entered and electronically signed by Sherry Chakraborty MD 10/22/24 15:03:
I saw and examined the patient.
The RUG SETTER VELVET or PA's note was reviewed and I agree with the note.
Comment:59-year-old male past medical history of [place]'s disease on hydrocortisone coming with adrenal insufficiency crisis from noncompliance of medications with nausea, vomiting, abdominal pain. He was found on CT to have thickening of his
esophagus. Underwent endoscopy yesterday and was found to have esophageal ulcers, inflammation throughout the esophagus. Plan to continue PPI twice daily, follow-up pathology, recommend repeat endoscopy in 8 weeks which we will set up at his
follow-up appointment. We discussed the importance of staying compliant both with the steroids and PPI. Discharge planning per primary team currently undergoing. GI will sign off. Please call with questions.
Original Note:
Today's Communication / Plan
-
s/p EGD with esophageal ulcers
bx pending
hbg stable 11.7
cont PPI BID transition to PO on discharge
replete electrolytes per medical team
cont Miralax daily
Pt is scheduled GI follow up 12/01 at 11:30am with Julieta Alegre
will need 8 week follow up for repeat EGD to assess for healing
pt need to be compliant with steroids for adrenal insufficiency
will sign off call with questions.
Assessment / Plan
-
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
medications, who presented to the emergency department secondary to an unwitnessed syncopal episode with complaints of nausea, vomiting, abdominal pain for the past week. These GI symptoms have been improving. CT abdomen/pelvis showed wall
thickening of the distal esophagus with periesophageal edema and esophageal distension and GI is consulted for further evaluation. He has never had an EGD or colonoscopy prior to admission.
10/21 EGD - Z-line irregular, 30 to 38 cm from the incisors. Biopsied - Mucosal nodule found in the esophagus. Biopsied.
- 4 cm hiatal hernia- Esophageal ulcers with no bleeding and no stigmata of recent bleeding. Biopsied.
- Normal stomach.- Normal examined duodenum.
IMPRESSION / PLAN:
-CT with esophageal thickening follow up EGD with esophageal ulcers, nodule in esophagus
-anemia
-elevated bili mainly indirect
-syncope prior to admission
-KASSIE
-Hyponatremia/Hyperkalemia now hypokalemia
-Metabolic acidosis
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
-Hypothyroidism
PLAN:
s/p EGD with esophageal ulcers
bx pending
hbg stable 11.7
cont PPI BID transition to PO on discharge
replete electrolytes per medical team
cont Miralax daily
Pt is scheduled GI follow up 12/01 at 11:30am with Julieta Alegre
will need 8 week follow up for repeat EGD to assess for healing
pt need to be compliant with steroids for adrenal insufficiency
Subjective
Subjective
Date of Service: October 22, 2024
10/22 brown stool on regular diet
Objective
Data Reviewed
Laboratory Data:
Laboratory Results
10/22/24 05:14
10/22/24 05:14
Laboratory Results
Magnesium 1.9 mg/dl (1.6-2.3) 10/21/24 04:33
Total Bilirubin 1.0 mg/dl (0.2-1.3) 10/19/24 04:00
AST 15 U/L (17-59) L 10/19/24 04:00
ALT 13 U/L (0-50) 10/19/24 04:00
Alkaline Phosphatase 81 U/L (38-126) 10/19/24 04:00
Lipase 147 U/L (23-300) 10/18/24 04:39
Vital Signs and I&O:
Vital Signs
Temp Pulse Resp BP Pulse Ox
97.7 F 90 22 113/71 99
10/22/24 11:01 10/22/24 11:00 10/22/24 11:00 10/22/24 10:00 10/22/24 11:00
I&O
10/21/24 10/22/24 10/23/24
06:59 06:59 06:59
Intake Total 720 / 720 960 / 960
Output Total 500 / 500 1575 / 1575
Balance 220 / 220 -615 / -615
Physical Exam
Physical Exam
HEENT: Anicteric and Moist mucous membranes
Cardiology: Normal Sinus Rhythm
Pulmonary: Clear
GI: Soft, Non Distended and Non Tender
Extremities: No Edema
Neuro: Non Focal
--- NOTE | 2024-10-22 13:46 | W.PN.HOSP.TC ---
Today's Communication/Plan
-
dc to home
Assessment / Plan
Assessment / Plan
Assessment:
Syncope likely due to hypovolemic shock secondary to adrenal crisis from Lance's disease, and possible volume depletion from decreased oral intake, abdominal pain, and vomiting
- Status post IV fluid bolus and 100 mg IV of hydrocortisone in the emergency department
- s/p stress dose steroids
- at dc, HC 20/10mg per Endo
- continue fludrocortisone
- s/p IVF with bicarb
- CT AP for N/V, noted: Mild to moderate circumferential wall thickening in the distal esophagus with mild esophageal distention and periesophageal edema. Diagnostic possibilities are (1) reflux esophagitis or (2) esophageal carcinoma/ Large amount
of fecal material in the proximal colon suggesting constipation. Moderate distention of the urinary bladder.
- Noted TSH high at 10.7, FT4 at 1.29
- blood culture x2 negative, urine culture negative, DC further empiric Ceftriaxone (received 2 days)
Acute kidney injury, resolved
metabolic acidosis, resolved
- creatinine 2.2 -> 0.9 today, baseline of 0.8
- s/p IVF
Acute Hyponatremia
hyperkalemia with metabolic acidosis , resolved
- electrolyte abnormalities likely secondary to adrenal insufficiency/crisis with KASSIE and volume depletion
- hyperkalemia treated
- s/p hypertonic IVF for Hyponatremia
- Nephro on board
Hypothyroidism
- TSH high at 10.7, FT4 at 1.29
- cont Synthroid, questionable compliance although pt states that he is compliant
- recc outpt follow up with area operations director
Constipation, likely contributing to abdominal pain, anorexia
- started bowel regimen
Reflux esophagitis vs esophageal carcinoma
- s/p EGD 10/21: esophagitis and esophageal ulcers
- continue PPI BID
- regular diet per ST
- repeat GI OP EGD in 2 months to assess healing
Distended urinary bladder
- UA not suggestive of UTI
- Bladder scan per protocol, straight cath if needed (so far no need)
Other findings on CT AP
- Moderately enlarged prostate gland.
- Moderate multilevel lumbar discogenic degenerative disease.
- Severe bilateral facet joint arthrosis at L5/S1.
- Transitional lumbosacral vertebral segment.
Findings on CT facial bones
Mild preseptal soft tissue swelling over the left orbit. Severe mucosal disease in the left frontal sinus. Moderate mucosal disease in the left maxillary sinus and left ethmoid air cells. Severe left deviation of the nasal septum. Severe discogenic
degenerative disease at C4/C5 and C5/C6.
DVT ppx: SC heparin
Code: Full
More than 30 minutes spent in discharge including
Final examination of the patient
Summarizing hospital stay
Instructions for continuing care to all relevant caregivers
Preparation of discharge records, prescriptions, and referral forms
Total time spent (in minutes): 41
Anticipated Discharge: Today
Subjective/Interval History
-
Date of Service: October 22, 2024
resting comfortably, no complaints
Objective Data
-
Labs:
Laboratory Results
10/22/24
05:14
WBC 8.1
Hgb 11.7 L
Hct 32.2 L
Plt Count 347
Sodium 134 L
Potassium 3.4 L D
Chloride 108 H
Carbon Dioxide 22
BUN 20
Creatinine 0.6 L
Glucose 83
Calcium 7.5 L D
Vital Signs:
Vital Signs
Temp Pulse Resp BP Pulse Ox
97.7 F 90 22 113/71 99
10/22/24 11:01 10/22/24 11:00 10/22/24 11:00 10/22/24 10:00 10/22/24 11:00
I&O
10/21/24 10/22/24 10/23/24
06:59 06:59 06:59
Intake Total 720 / 720 960 / 960
Output Total 500 / 500 1575 / 1575
Balance 220 / 220 -615 / -615
Physical Exam
-
General: No Apparent Distress
HEENT: Normocephalic and Atraumatic
Respiratory: Negative Wheezes
Cardiac: Regular Rhythm and S1/S2
GI: Soft and Nontender
Genito-urinary: No Costovertebral Tender
Neuro: AO x 3
Psych: Calm
Data Reviewed
-
Total Time Spent with Patient (in minutes): 42
Labs: Labs Reviewed by me
--- NOTE | 2024-10-22 13:57 | W.DS.TRANS ---
DC Summary - [employer] Internship
-
Discharge Instructions:
Discharge Diagnosis/Procedures shock in setting of adrenal crisis, KASSIE,
esophagitis with EGD 10/21 showing esophagitis/
ulcers
Diet Regular
Activity As tolerated
Blood Work CBC and BMP in 1 week - slip given
Instructions:
Stand-Alone Forms:
Changes to Home Medications: No
Discharge Medications:
DC Medications w/original date entered in [employer]
fludrocortisone 0.1 mg tablet 0.1 mg PO DAILY #30 tabs 10/22/24
hydrocortisone 10 mg tablet 10 mg PO DAILY@1500 #30 tabs 10/22/24
hydrocortisone 10 mg tablet 20 mg (2 x 10 mg) PO DAILY #60 tabs 10/22/24
levothyroxine 50 mcg tablet 75 mcg (1.5 x 50 mcg) PO DAILY @ 0600 Thyroid #30 tabs 10/22/24
pantoprazole 40 mg tablet,delayed release (Protonix) 40 mg PO BID #60 tabs 10/22/24
Home Medication Changes
Pending Results: No
Total time spent discharging patient (in min): 41
--- NOTE | 2024-10-22 14:18 | CM ---
Patient with Dx shock secondary to adrenal crisis, KASSIE, esophagitis. Room air. PT/OT Evals; no d/c needs.
Spoke with patient who was preparing for discharge. The patient says he feels ready to go home today. His stepmom will provide transport home.
No CM d/c needs identified.
Plan home today.
[2024-10-22] MEDS: CORTEF 10 MG PO (16:10)
[2024-10-22] MEDS: HEPARIN SC (16:11)
== END 2024-10-22 18:28 | disposition home or self-care (01) | DRG 643 ==
LOC: IMU 06:45
PROVIDERS: Internal Medicine; Internal Medicine Gastroenterology; ADMITTING PHYSICIAN Internal Medicine; ATTENDING PHYSICIAN Internal Medicine; CONSULT PHYSICIAN Internal Medicine Endocrinology, Diabetes & Metabolism; CONSULT PHYSICIAN Internal Medicine Gastroenterology; CONSULT PHYSICIAN Specialist; EMERGENCY PHYSICIAN Emergency Medicine
PROC: 0DB58ZX Excision of Esophagus, Via Natural or Artificial Opening Endoscopic, Diagnostic (ICD-10-PCS; 2024-10-21)
DX: E27.2 Addisonian crisis (principal); R57.1 Hypovolemic shock; N17.9 Acute kidney failure, unspecified; K22.10 Ulcer of esophagus without bleeding; E87.20 Acidosis, unspecified; E87.1 Hypo-osmolality and hyponatremia; E27.1 Primary adrenocortical insufficiency; K44.9 Diaphragmatic hernia without obstruction or gangrene; K22.89 Other specified disease of esophagus; E03.9 Hypothyroidism, unspecified; Z91.148 Patient's other noncompliance with medication regimen for other reason; Z79.890 Hormone replacement therapy; K21.00 Gastro-esophageal reflux disease with esophagitis, without bleeding; E87.5 Hyperkalemia; E86.9 Volume depletion, unspecified; K59.09 Other constipation; N40.0 Benign prostatic hyperplasia without lower urinary tract symptoms; J34.2 Deviated nasal septum; M47.819 Spondylosis without myelopathy or radiculopathy, site unspecified; D72.829 Elevated white blood cell count, unspecified; K76.89 Other specified diseases of liver; Z79.52 Long term (current) use of systemic steroids; Z83.3 Family history of diabetes mellitus
CPT/HCPCS: 88305; 70486; 74176; 80048; 80053; 81003; 81015; 82248; 82570; 82962; 83605; 83690; 83735; 83930; 83935; 84132; 84295; 84300; 84439; 84443; 84484; 85025; 85027; 87040; 87086; 88342; 92526; 92610; 93005; 96361; 96365; 96375; 97163; 97167; 97530; 97535; 99291; J7030

== ENCOUNTER 2025-04-07 21:15 | Inpatient (IN) | payer BC, SELFPAY ==
[2025-04-07] VITALS (20 sets, daily range): BP systolic 87–137; BP diastolic 52–103; BMI 19.7
[2025-04-07 18:37] LABS: Hematocrit 39.8 % (39.0-52.0); Hemoglobin 14.1 g/dL (13.0-18.0); Mean Corp Hgb Conc. 35.4 g/dL (33.0-37.0); Mean Corpuscular Volume 86.7 fL (80.0-94.0); Nucleated Red Blood Cells % 0 % (-); Platelet Count 364 10^3/uL (130-400); Red Cell Dist. Width 12.3 % (11.5-14.5)
[2025-04-07] MEDS: OFIRMEV 100 IV (18:44)
[2025-04-07] MEDS: ZOFRAN 4 MG IV (18:44)
[2025-04-07] MEDS: SOLU-CORTEF 100 MG IV (18:44)
[2025-04-07 18:45] LABS: ALT (SGPT) 16 U/L (0-50); AST (SGOT) 19 U/L (17-59); Albumin 3.7 g/dl (3.5-5.0); Alkaline Phosphatase 87 U/L (38-126); Blood Urea Nitrogen 48 mg/dl (9-20); Calcium 8.1 mg/dl (8.4-10.2); Carbon Dioxide 16 mmol/L (22-30); Chloride 93 mmol/L (98-107); Glucose 96 mg/dl (70-99); Potassium 4.9 mmol/L (3.5-5.1); Sodium 124 mmol/L (135-145); Total Protein 6.3 g/dl (6.3-8.2); eGFR > 60.00
[2025-04-07] MEDS: NSS 1000 IV ×2 (18:49→23:09)
[2025-04-07 18:51] LABS: COVID-19 Antigen Negative (Negative)
[2025-04-07 19:03] LABS: Acetaminophen < 10 ug/ml (10-30)
--- NOTE | 2025-04-07 19:59 | ED.GENMED ---
History of Present Illness
<Foreign Kulkarni Jr., PA-C - Last Filed: 04/07/25 21:08>
General
Chief Complaint: Abdominal Symptoms
Source: patient and ambulance crew
Exam Limitations: none
Time Seen by Provider: 04/07/25 18:20
Nursing documentation reviewed up to this point in time: agreed with
History of Present Illness
History of Present Illness:
59-year-old male presenting to the emergency department today with concerns of nausea vomiting abdominal pain ongoing over the past 5 days. Apparently blood pressure was 60s over 40s via EMS on arrival to his home. Did receive 1 L of fluid prior
to arrival. Denies any changes in bowel movements constipation diarrhea. Denies any chest pain or shortness of breath.
Past History
<Foreign Kulkarni Jr., PA-C - Last Filed: 04/07/25 21:08>
Past History
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
Social History
Tobacco: Non-smoker
Alcohol: None
Drug: None
Living: with family
Employment: Employed
Family History
Family History: Other (Diabetes in mother and father hypothyroidism and rheumatoid arthritis and his mother )
Review of Systems
<Foreign Kulkarni Jr., PA-C - Last Filed: 04/07/25 21:08>
Review of Systems
Allergies reviewed?: Yes
All Other Systems: ROS reviewed and negative except as documented in HPI and ROS
Phy Exam
<MARY Mosquera Jr. Last Filed: 04/07/25 21:08>
Physical Exam
Physical Exam:
GENERAL: Alert , in no apparent distress
EYE: pupils equal and reactive
NECK: Supple, no significant adenopathy.
ENT: o/p clr, mmm.
CARDIAC: Regular rate and rhythm .
LUNGS: Clear breath sounds bilaterally, no acute respiratory distress, no wheezes/rales/rhonchi
ABDOMEN: Vague diffuse abdominal pain but no focal pain no guarding no peritoneal signs
NEUROLOGICAL: Alert and oriented, no focal neuro deficits
SKIN: Warm and dry, skin intact.
MUSCULOSKELETAL: No edema, well perfused.
PSYCH: Normal and appropriate interaction.
Sepsis
<Foreign Kulkarni Jr., PA-C - Last Filed: 04/07/25 21:08>
Sepsis Screening
Sepsis Assessment: Sepsis Ruled Out
Sepsis Screen
Sepsis Screen: Sepsis Ruled Out
Date: 04/07/25
Time: 21:08
<Chasidy Mccain MD - Last Filed: 04/09/25 11:28>
Sepsis Screen
Sepsis Screen: Sepsis Ruled Out
Date: 04/09/25
Time: 11:27
Course
<Foreign Kulkarni Jr., PA-C - Last Filed: 04/07/25 21:08>
Orders/Labs/Results
Orders:
Orders
04/07/25 Dinner
Regular
At Your Request: Full Participation
04/07/25 18:18
Electrocardiogram (*1) Urgent
Reason for Study: Other
Other Reason for Exam: Possible Sepsis
04/07/25 18:19
EKG- Treatment ONCE
04/07/25 18:23
Acetaminophen Urgent
Comment: ADD ON
Aldosterone, Serum [S] Urgent
Comment: ADD ON
COVID-19 Antigen Urgent
Source: Nasal Swab
Complete Blood Count/With Diff Urgent
Comprehensive Metabolic Panel Urgent
Cortisol, Random Urgent
Comment: ADD ON
Free T4 Urgent
Lactic Acid Q4H
Comment: ON ICE, CANCEL 2ND ORDER IF FIRST LACTIC ACID LEVEL <2
TSH Reflex To Free T4 Urgent
Comment: ADD ON
Blood Culture Q20M
LUIS ENRIQUE Source: Blood/Venous
Specimen Description:
Comment: Urgent from separate sites. If patient screens positive for possible sepsis
Influenza A+B Rapid Molecular Urgent
LUIS ENRIQUE Source: Nasal Swab
Specimen Description:
04/07/25 18:33
0.9% Sodium Chloride 1000 ml [Nss] 1,000 ml IV BOLUS
Ondansetron Injectable [Zofran] 4 mg IV NOW STA
04/07/25 18:36
Acetaminophen 1000MG/100Ml [Ofirmev] 1,000 mg in 100 ml IV ONCE
Acetaminophen IV Indication:: No MD & No Enteral Access
Hydrocortisone Sod Succinate [Solu-Cortef] 100 mg IV NOW STA
04/07/25 18:37
CT Abd/Pel (IV only)-DH only Urgent
Comment:
Reason For Exam: abd pain vomiting
04/07/25 18:42
Add On- LAB Urgent
Tests Added?: Serum cortisol, ACTH, aldosterone level
04/07/25 18:50
Blood Culture Q20M
LUIS ENRIQUE Source: Blood/Venous
Specimen Description:
Comment: Urgent from separate sites. If patient screens positive for possible sepsis
04/07/25 21:01
Admit/Transfer Patient As Directed
Co-Sign Provider:
Level of Care: Inpatient admission
Assign to:: IMU- Intermediate Care
Physician / Group: ren
Diagnosis: adrenal crisis
Reason for Hospitalization: adrenal crisis
Expected length of stay greater than two midnights?: Yes
ELOS- Estimated Length of Stay in days: 2
I certify the patient meets the requirements for IP care: Yes
Code Status As Directed
Resuscitation Status: Full Code
PRN Pain Medication Management As Directed
May give lesser potent ordered pain med per pt: Yes
preference::
Protocol:: Medication orders for pain may be administered in a
manner that supports deferring to patient preference
when the pt is:
- Requesting an ordered lesser potent pain medication.
Least to most potent pain medications are defined
as: acetaminophen < NSAID < tramadol < opioids
(morphine, oxycodone, hydromorphone).
- Requesting a lesser dose of the same medication IF
ORDERED.
- Requesting a less intrusive route of administration
if both routes are prescribed by the provider (PO <
IV).
04/07/25 21:03
CR Chest - 2 Views Urgent
Comment:
Reason For Exam: fever, cough
04/07/25 22:42
0.9% Sodium Chloride 1000 ml [Nss] 1,000 ml IV 100 mls/hr
HYDROmorphone [Dilaudid] 0.5 mg IV Q4HPRN PRN
Ondansetron Injectable [Zofran] 4 mg IV Q6HPRN PRN
04/07/25 22:42
Activity As Directed
Activity Level: As Tolerated
Vital Signs As Directed
Frequency: Per unit guidelines
DX Deep Vein Thrombosis Video Routine
04/08/25 00:00
Hydrocortisone Sod Succinate [Solu-Cortef] 50 mg IV Q6
04/08/25 03:36
Complete Blood Count/With Diff IN AM
Comprehensive Metabolic Panel IN AM
04/08/25 18:00
Enoxaparin Sodium [Lovenox] 40 mg SC QPM
Abnormal Lab Results
04/07/25
18:23
WBC 12.9 H 10^3/uL
(4.8-10.8)
RBC 4.59 L 10^6/uL
(4.70-6.10)
Abs Immat Gran (auto) 0.1 H 10^3/uL
(0-0.05)
Absolute Neuts (auto) 10.0 H 10^3/uL
(1.4-6.5)
Absolute Monos (auto) 1.2 H 10^3/uL
(0.1-0.6)
Neutrophils % 77.0 H %
(42.2-75.2)
Lymphocytes % 11.1 L %
(20.5-51.1)
Sodium 124 L mmol/L
(135-145)
Chloride 93 L mmol/L
(98-107)
Carbon Dioxide 16 L mmol/L
(22-30)
BUN 48 H mg/dl
(9-20)
Calcium 8.1 L mg/dl
(8.4-10.2)
Total Bilirubin 2.1 H mg/dl
(0.2-1.3)
TSH (Reflex) 5.02 H uIU/ml
(0.47-4.68)
Acetaminophen < 10 L ug/ml
(10-30)
04/07/25 18:23
04/07/25 18:23
Vital Signs
Initial and Last Documented VS:
Initial Vital Signs
Temp Pulse Resp BP Pulse Ox
100.4 F H 120 26 137/103 97
04/07/25 18:07 04/07/25 18:07 04/07/25 18:07 04/07/25 18:07 04/07/25 18:07
Last Documented Vital Signs
Temp Pulse Resp BP Pulse Ox
97.7 F 79 14 89/55 94
04/09/25 11:07 04/09/25 11:07 04/09/25 11:07 04/09/25 11:07 04/09/25 11:07
<Chasidy Mccain MD - Last Filed: 04/09/25 11:28>
Orders/Labs/Results
Orders:
Orders
04/07/25 Dinner
Regular
At Your Request: Full Participation
04/07/25 18:18
Electrocardiogram (*1) Urgent
Reason for Study: Other
Other Reason for Exam: Possible Sepsis
04/07/25 18:19
EKG- Treatment ONCE
04/07/25 18:23
Acetaminophen Urgent
Comment: ADD ON
Aldosterone, Serum [S] Urgent
Comment: ADD ON
COVID-19 Antigen Urgent
Source: Nasal Swab
Complete Blood Count/With Diff Urgent
Comprehensive Metabolic Panel Urgent
Cortisol, Random Urgent
Comment: ADD ON
Free T4 Urgent
Lactic Acid Q4H
Comment: ON ICE, CANCEL 2ND ORDER IF FIRST LACTIC ACID LEVEL <2
TSH Reflex To Free T4 Urgent
Comment: ADD ON
Blood Culture Q20M
LUIS ENRIQUE Source: Blood/Venous
Specimen Description:
Comment: Urgent from separate sites. If patient screens positive for possible sepsis
Influenza A+B Rapid Molecular Urgent
LUIS ENRIQUE Source: Nasal Swab
Specimen Description:
04/07/25 18:33
0.9% Sodium Chloride 1000 ml [Nss] 1,000 ml IV BOLUS
Ondansetron Injectable [Zofran] 4 mg IV NOW STA
04/07/25 18:36
Acetaminophen 1000MG/100Ml [Ofirmev] 1,000 mg in 100 ml IV ONCE
Acetaminophen IV Indication:: No MD & No Enteral Access
Hydrocortisone Sod Succinate [Solu-Cortef] 100 mg IV NOW STA
04/07/25 18:37
CT Abd/Pel (IV only)-DH only Urgent
Comment:
Reason For Exam: abd pain vomiting
04/07/25 18:42
Add On- LAB Urgent
Tests Added?: Serum cortisol, ACTH, aldosterone level
04/07/25 18:50
Blood Culture Q20M
LUIS ENRIQUE Source: Blood/Venous
Specimen Description:
Comment: Urgent from separate sites. If patient screens positive for possible sepsis
04/07/25 21:01
Admit/Transfer Patient As Directed
Co-Sign Provider:
Level of Care: Inpatient admission
Assign to:: IMU- Intermediate Care
Physician / Group: ren
Diagnosis: adrenal crisis
Reason for Hospitalization: adrenal crisis
Expected length of stay greater than two midnights?: Yes
ELOS- Estimated Length of Stay in days: 2
I certify the patient meets the requirements for IP care: Yes
Code Status As Directed
Resuscitation Status: Full Code
PRN Pain Medication Management As Directed
May give lesser potent ordered pain med per pt: Yes
preference::
Protocol:: Medication orders for pain may be administered in a
manner that supports deferring to patient preference
when the pt is:
- Requesting an ordered lesser potent pain medication.
Least to most potent pain medications are defined
as: acetaminophen < NSAID < tramadol < opioids
(morphine, oxycodone, hydromorphone).
- Requesting a lesser dose of the same medication IF
ORDERED.
- Requesting a less intrusive route of administration
if both routes are prescribed by the provider (PO <
IV).
04/07/25 21:03
CR Chest - 2 Views Urgent
Comment:
Reason For Exam: fever, cough
04/07/25 22:42
0.9% Sodium Chloride 1000 ml [Nss] 1,000 ml IV 100 mls/hr
HYDROmorphone [Dilaudid] 0.5 mg IV Q4HPRN PRN
Ondansetron Injectable [Zofran] 4 mg IV Q6HPRN PRN
04/07/25 22:42
Activity As Directed
Activity Level: As Tolerated
Vital Signs As Directed
Frequency: Per unit guidelines
DX Deep Vein Thrombosis Video Routine
04/08/25 00:00
Hydrocortisone Sod Succinate [Solu-Cortef] 50 mg IV Q6
04/08/25 03:36
Complete Blood Count/With Diff IN AM
Comprehensive Metabolic Panel IN AM
04/08/25 18:00
Enoxaparin Sodium [Lovenox] 40 mg SC QPM
Abnormal Lab Results
04/07/25
18:23
WBC 12.9 H 10^3/uL
(4.8-10.8)
RBC 4.59 L 10^6/uL
(4.70-6.10)
Abs Immat Gran (auto) 0.1 H 10^3/uL
(0-0.05)
Absolute Neuts (auto) 10.0 H 10^3/uL
(1.4-6.5)
Absolute Monos (auto) 1.2 H 10^3/uL
(0.1-0.6)
Neutrophils % 77.0 H %
(42.2-75.2)
Lymphocytes % 11.1 L %
(20.5-51.1)
Sodium 124 L mmol/L
(135-145)
Chloride 93 L mmol/L
(98-107)
Carbon Dioxide 16 L mmol/L
(22-30)
BUN 48 H mg/dl
(9-20)
Calcium 8.1 L mg/dl
(8.4-10.2)
Total Bilirubin 2.1 H mg/dl
(0.2-1.3)
TSH (Reflex) 5.02 H uIU/ml
(0.47-4.68)
Acetaminophen < 10 L ug/ml
(10-30)
04/07/25 18:23
04/07/25 18:23
Vital Signs
Initial and Last Documented VS:
Initial Vital Signs
Temp Pulse Resp BP Pulse Ox
100.4 F H 120 26 137/103 97
04/07/25 18:07 04/07/25 18:07 04/07/25 18:07 04/07/25 18:07 04/07/25 18:07
Last Documented Vital Signs
Temp Pulse Resp BP Pulse Ox
97.7 F 79 14 89/55 94
04/09/25 11:07 04/09/25 11:07 04/09/25 11:07 04/09/25 11:07 04/09/25 11:07
<Foreign Kulkarni Jr., PA-C - Last Filed: 04/07/25 21:08>
MDM/Problems Addressed
MDM/Problems Addressed:
59-year-old male presenting to the emergency department today with concerns of nausea vomiting and abdominal pain over the past 5 days. Trouble keeping anything down at home. Blood pressure recording of 60s over 40s via EMS on arrival at his home
he was given a liter of fluid blood pressure was improved by time of arrival here. Otherwise patient was given dose of stress dose hydrocortisone 100 mg was given fluids. Patient was found to have low sodium elevated BUN to creatinine ratio. CT
scan did not show any emergent findings other than some inflammation to hiatal hernia. Plan to admit for adrenal crisis. Improving blood pressure throughout ER stay.
<Foreign Kulkarni Jr., PA-C - Last Filed: 04/07/25 21:08>
*Pulse Oximetry
SaO2: 94
Oxygen Mode of Delivery: Room air
Patient hypoxic: no (94)
*Critical Care Note
Total Time (30-74mins, 75-104mins- exclusive of procedures): Not Applicable
ED Attending Note
<Foreign Kulkarni Jr., PA-C - Last Filed: 04/07/25 21:08>
-
Portions of this chart may have been created with voice recognition software.� Occasional wrong word or��sound alike� substitutions may have occurred due to the inherent limitations of voice recognition software.
<Chasidy Mccain MD - Last Filed: 04/09/25 11:28>
ED Attending Note
Patient seen and examined by attending physician: Yes
I performed the substantive portion of visit, reviewed & personally made and approve the management plan that is documented in note by myself or GEMMA.: Yes
ED Attending Note:
59-year-old male presents emergency department after getting ill around Thanksgiving described as a URI followed by nausea and intractable vomiting. He says that he was able to tolerate his meds at home. Patient arrived via EMS pretension and
feeling generally unwell. Status post resuscitation here, systolic blood pressure 98 patient awake and alert, says he feels much better. COVID flu negative, hyponatremia noted noted to be more advanced than his baseline which may be related to
adrenal insufficiency, lactic within normal limits.
Discharge Plan
Departure
Patient Disposition: Admit
Date of Disposition: 04/07/25
Time of Disposition: 21:07
Admit to: Med/Surg
Admit to doctor: Ren
Presentation/result/management discussed w/ accepting MD/DO: Hospitalist
Patient with high blood pressure during this ER visit?: No
Condition: Good
Covid-19: Not Applicable
Discharge Problem:
Adrenal crisis, Acute hyponatremia
Interventions
Interventions:
*Risk Screen - Suicide Last Done: 04/07/25 22:59
*General Assessment Last Done: 04/07/25 18:07
*Neglect/Abuse Screening Last Done: 04/07/25 18:07
*ED COVID-19 Vaccine History Last Done: 04/07/25 18:07
*ED Influenza Vaccine History Last Done: 04/07/25 18:07
[facility] Risk Assessment Tool Last Done: 04/07/25 18:06
*Nursing Disposition Last Done: 04/07/25 22:27
TY-Lkfsua-Qzbqbqhkkt Assessment Last Done: 04/07/25 19:08
Discharge Date and Time
Discharge Date/Time: 04/07/25 22:58
[2025-04-07 20:41] LABS: Cortisol, Random 7.2 ug/dl
--- NOTE | 2025-04-07 21:05 | HPS.HSE ---
Family Physician
-
Family Physician: Julieta Santos
Chief Complaint
-
abdominal pain
History of Present Illness
59-year-old male past medical history of adrenal insufficiency/Enterprise's disease, chronic abdominal pain since childhood, hypothyroidism, constipation, reflux esophagitis/esophageal ulcers, presenting with nausea, vomiting and abdominal pain ongoing
for the past 5 days. He has not eaten anything in 5 days.
Blood pressure was 60s over 40s for EMS. Patient received 1 L of fluids prior to arrival. Patient denies any changes in bowel movements, constipation or diarrhea. No chest pain or shortness of breath.
He states that he started having an upper respiratory infection with cough, congestion and sore throat around 5 days ago. Symptoms have mostly resolved at this point although he still has a little bit of cough. Denies any fevers or chills.
Medical History
Past Medical History
Past Medical History: Reports Other (adrenal insufficiency/Enterprise's disease, chronic abdominal pain since childhood, hypothyroidism, constipation, reflux esophagitis/esophageal ulcers,)
Past Surgical History: Reports None ((Bilateral cataract surgery))
Social History
Tobacco: Non-smoker
Alcohol: Occasional
Drug: None
Family History
Family History: Not pertinent
Allergies / Home Medications
Allergies reflects when Allergies were last updated in [facility].
Home Medications with original date entered in [facility]
Allergy/Medication List:
Allergies
Allergy/AdvReac Type Severity Reaction Status Date / Time
grass pollen Allergy Unknown Verified 04/07/25 18:06
house dust Allergy Unknown Verified 04/07/25 18:06
pollen extracts Allergy Unknown Verified 04/07/25 18:06
tree and shrub pollen Allergy Unknown Verified 04/07/25 18:06
Home Medications
fludrocortisone 0.1 mg tablet 0.1 mg PO DAILY #30 tabs 10/22/24
hydrocortisone 10 mg tablet 10 mg PO DAILY@1500 #30 tabs 10/22/24
hydrocortisone 10 mg tablet 20 mg (2 x 10 mg) PO DAILY #60 tabs 10/22/24
levothyroxine 50 mcg tablet 75 mcg (1.5 x 50 mcg) PO DAILY @ 0600 Thyroid #30 tabs 10/22/24
pantoprazole 40 mg tablet,delayed release (Protonix) 40 mg PO BID #60 tabs 10/22/24
Review of Systems
-
History Source: Patient
A 12 point ROS was completed and negative except as noted: Yes
Constitutional: Reports No Symptoms
EENT: Reports No Symptoms
Respiratory: Reports No Symptoms
Cardiac: Reports No Symptoms
Abdomen/GI: Reports No Symptoms
: Reports No Symptoms
Musculoskeletal: Reports No Symptoms
Skin: Reports No Symptoms
Neurological: Reports No Symptoms
Endocrine: Reports No Symptoms
Hematologic/Lymphatic: Reports No Symptoms
Psych: Reports No Symptoms
Physical Exam
Vital Signs
Vital Signs
Temp Pulse Resp BP Pulse Ox
100.4 F H 105 24 97/54 94
04/07/25 18:07 04/07/25 19:45 04/07/25 19:45 04/07/25 19:45 04/07/25 20:01
Physical Exam
General: Well Developed, Well Nourished and No Apparent Distress
HEENT: NormoCephalic, Moist mucous membranes and Atraumatic
Respiratory: Clear
Cardiac: S1/S2 and Regular Rhythm; No Murmur or Rub
GI: Soft, Non Tender, Non Distended and Normal Bowel Sounds; No Organomegaly
Rectal: Deferred by Provider
Musculoskeletal: No Clubbing, No Cyanosis and No Edema
Skin: No Rash
Neuro: Nonfocal/grossly intact
Laboratory Results
-
04/07/25 18:23
04/07/25 18:23
Laboratory Results
Lactic Acid Cancelled 04/07/25 22:30
Total Bilirubin 2.1 mg/dl (0.2-1.3) H 04/07/25 18:23
AST 19 U/L (17-59) 04/07/25 18:23
ALT 16 U/L (0-50) 04/07/25 18:23
Alkaline Phosphatase 87 U/L (38-126) 04/07/25 18:23
Data Reviewed
-
Lab Data: Labs Reviewed by me
Old Records: Reviewed
Impression/Plan
-
IMPRESSION:
PLAN:
# Shock secondary to adrenal crisis secondary to viral URI/rule out pneumonia
# History of Lance's disease
- Leukocytosis 12.9
-Lactate 1 point
-CT abdomen pelvis shows small hiatal hernia, cannot exclude some accompanying mild wall thickening/inflammatory changes likely from reflux esophagitis
- Blood cultures
- IV fluids
- Hydrocortisone 100 mg given, continue 50 every 6
- Continue fludrocortisone
# Recent upper respiratory infection
- Temperature 100.4
- Check chest x-ray
- Check COVID and influenza
# Acute on chronic hyponatremia secondary to Lance's
- Sodium 124
- Monitor with IV fluids
Chronic abdominal pain since childhood
Hypothyroidism
- Check TSH
- Continue levothyroxine
History of constipation
Reflux esophagitis/esophageal ulcers
- Continue Protonix
Full code
DVT prophylaxis�Lovenox
Regular diet
[2025-04-07 22:58] LABS: Glucose - Point of Care 103 mg/dl (70-99)
[2025-04-07] MEDS: SOLU-CORTEF 50 MG IV (23:09)
--- NOTE | 2025-04-07 23:24 | PTCARENOTE ---
Patient admitted to ICU under IMU loc. Patient aao x3, affect pleasant. NSR to ST on the monitor, hr 90-100's. Lungs cta throughout, no regan nor sob noted. Pox 97% ra. BS active x4, patient states his last bm was 04/02, confirms usually every few
days and denies s/s of constipation. Confirms poor appetite since 04/02 with minimal po intake. Denies nausea at this time. Continent of urine, urinal provided at bedside. Left ac 18g with NS at 100ml/hr continuous. Call jimenez within reach,
instructed on use. Patient verbalizes understanding. Will continue to monitor patient closely.
[2025-04-08] VITALS (39 sets, daily range): BP systolic 84–132; BP diastolic 57–117; BMI 19.7
[2025-04-08 03:51] LABS: Hematocrit 37.7 % (39.0-52.0); Hemoglobin 13.7 g/dL (13.0-18.0); Mean Corp Hgb Conc. 36.3 g/dL (33.0-37.0); Mean Corpuscular Volume 87.5 fL (80.0-94.0); Nucleated Red Blood Cells % 0 % (-); Platelet Count 300 10^3/uL (130-400); Red Cell Dist. Width 12.1 % (11.5-14.5)
[2025-04-08 04:16] LABS: ALT (SGPT) 16 U/L (0-50); AST (SGOT) 19 U/L (17-59); Albumin 3.5 g/dl (3.5-5.0); Alkaline Phosphatase 86 U/L (38-126); Blood Urea Nitrogen 33 mg/dl (9-20); Calcium 8.4 mg/dl (8.4-10.2); Carbon Dioxide 11 mmol/L (22-30); Chloride 99 mmol/L (98-107); Estimated Creatinine Clearance 78 ml/min; Glucose 113 mg/dl (70-99); Potassium 5.6 mmol/L (3.5-5.1); Sodium 126 mmol/L (135-145); Total Protein 6.3 g/dl (6.3-8.2); eGFR > 60.00
--- NOTE | 2025-04-08 04:48 | W.PN.UPDATE ---
Update Note
Progress Note Update
Myriam and will repeat bmp in 4 hrs
[2025-04-08] MEDS: SODIUM BICARBONATE 50 MEQ IV (04:59)
[2025-04-08] MEDS: LOKELMA 5 GRAM PO (04:59)
[2025-04-08] MEDS: SOLU-CORTEF 50 MG IV ×4 (05:00→23:58)
--- NOTE | 2025-04-08 08:53 | W.PN.HOSP.TC ---
Today's Communication/Plan
-
Bicarbonate infusion. Stress doses IV steroids.
Assessment / Plan
Assessment / Plan
Physical Exam
General: Acute on chronically ill
HEENT: NormoCephalic, Moist mucous membranes and Atraumatic
Respiratory: Clear
Cardiac: S1/S2 and Regular Rhythm; No Murmur or Rub
GI: Soft, Non Tender, Non Distended and Normal Bowel Sounds; No Organomegaly
Rectal: Deferred by Provider
Musculoskeletal: No Clubbing, No Cyanosis and No Edema
Skin: No Rash
Neuro: Nonfocal/grossly intact
A/P:
Shock secondary to adrenal crisis secondary to viral URI / ?ruled out pneumonia/metabolic acidosis
History of [place]'s disease
Leukocytosis 12.9-->10.4
Lactate 1.6-->0.9
CT abdomen pelvis shows small hiatal hernia, cannot exclude some accompanying mild wall thickening/inflammatory changes likely from reflux esophagitis
Blood cultures no growth but still pending
IV fluids--> change to bicarbonate infusion. Off pressors.
Hydrocortisone 100 mg given, continue 50 mg every 6 hr.
Restart fludrocortisone today
Bicarb 13--> check ABG and Lactic acid (7.34 23 88 12.4 98.2% and lactate 1)
can transfer out of IMU today if remains HD stable
Recent upper respiratory infection
Temperature 100.4-->afebrile today
Check chest x-ray and no acute chest pathology
Check COVID and influenza and all negative
Hold on antibiotics and reeval
Acute on chronic hyponatremia and Hyperkalemia secondary to Lance's
Sodium 124-->127
Potassium 5.6-->5.1
Monitor with IV fluids and steroids
Chronic abdominal pain since childhood
Hypothyroidism
Restart levothyroxine today
History of constipation
Reflux esophagitis / esophageal ulcers
Restart Protonix today
Full code
DVT prophylaxis: Lovenox
Diet: Regular
Total time spent on today's encounter was 52 minutes which included time spent in counseling the patient/family regarding diagnosis and treatment plan as listed above, goals of care, and symptom management. Case was discussed with nursing staff,
specialists, and care coordinators/case management. All labs and imaging personally reviewed by me. Remainder the time spent in detailed review of previous records, lab data, imaging, and other medical provider documentation.
Anticipated Discharge: > 48 hours
Subjective/Interval History
-
Date of Service: April 08, 2025
Objective Data
-
Labs:
Laboratory Results
04/08/25 04/08/25
03:36 08:23
WBC 10.4
Hgb 13.7
Hct 37.7 L
Plt Count 300
Sodium 126 L Pending
Potassium 5.6 H Pending
Chloride 99 Pending
Carbon Dioxide 11 L* Pending
BUN 33 H Pending
Creatinine 1.0 Pending
Glucose 113 H Pending
Calcium 8.4 Pending
Total Bilirubin 1.6 H
AST 19
ALT 16
Alkaline Phosphatase 86
Vital Signs:
Vital Signs
Temp Pulse Resp BP Pulse Ox
97.6 F 92 21 101/67 98
04/08/25 07:18 04/08/25 06:30 04/08/25 06:30 04/08/25 06:30 04/08/25 06:30
I&O
04/07/25 04/08/25 04/09/25
06:59 06:59 06:59
Intake Total 1130 / 1130
Output Total 850 / 850 650 / 650
Balance 280 / 280 -650 / -650
[2025-04-08] MEDS: NSS 1000 IV (08:58)
[2025-04-08 09:04] LABS: Blood Urea Nitrogen 29 mg/dl (9-20); Calcium 8.3 mg/dl (8.4-10.2); Carbon Dioxide 13 mmol/L (22-30); Chloride 99 mmol/L (98-107); Estimated Creatinine Clearance 78 ml/min; Glucose 113 mg/dl (70-99); Potassium 5.1 mmol/L (3.5-5.1); Sodium 127 mmol/L (135-145); eGFR > 60.00
[2025-04-08 11:43] LABS: B.E. -11.4 mmol/L; O2 Saturation % 98.2 % (94-98); PCO2 23 mmHg (35-48); PO2 88 mmHg (83-108)
[2025-04-08 11:44] LABS: O2 Therapy room air
[2025-04-08 11:46] LABS: HCO3 12.4 mmol/L (21-28)
[2025-04-08] MEDS: SODIUM BICARBONATE 1075 MEQ IV ×2 (11:49→21:12)
--- NOTE | 2025-04-08 12:07 | PTCARENOTE ---
ABG/lactate sent. Critical result reported to Dr. Gutierrez.
Patient offers no complaints. A/O x4. Watching [employer] on TV. Appetite improving. Denies N/V/D. Voiding independently via urinal. NSR on telemetry. RA, Sp02 WNL. Dry cough. Encouraged to reposition self while in bed. IVF infusing via LAC PIV.
Call jimenez within reach. Pt calls appropriately.
--- NOTE | 2025-04-08 14:54 | PTCARENOTE ---
Addendum entered by Julita Calloway RN 04/08/25 15:39:
Attempted to call father to update, no answer.
Addendum entered by Julita Calloway RN 04/08/25 15:39:
Patient transported to 3W in bed with tele pack. All belongings sent with patient.
Original Note:
Report called to BRONWYN Tong on 3W.
[2025-04-08] MEDS: SYNTHROID 75 MCG PO (15:05)
[2025-04-08] MEDS: FLORINEF 0.1 MG PO (15:05)
[2025-04-08] MEDS: LOVENOX 40 MG SC (17:16)
--- NOTE | 2025-04-08 17:25 | CM ---
Initial assessment completed with patient who lives with his father, step-mother, aunt and nephew in a 1 story plus finished basement home with B/B in basement with 12 steps. No steps to enter home which has a has a ramp with B/L rails. 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
was independent in ADL's and ambulation, does not drive. No DME. No in-home services. No HC-POA. No VA benefits. No psychiatric hospitalizations. PCP is Dr. Lorena Gutiérrez. Pharmacy is [facility] in [place]. Discharge POC: Anticipate home with no
needs.
[2025-04-08] MEDS: PROTONIX 40 MG PO (19:53)
[2025-04-09] VITALS (7 sets, daily range): BP systolic 89–111; BP diastolic 38–64
[2025-04-09] MEDS: SYNTHROID 75 MCG PO (05:59)
[2025-04-09] MEDS: SOLU-CORTEF 50 MG IV ×4 (06:00→23:51)
[2025-04-09 06:16] LABS: Blood Urea Nitrogen 24 mg/dl (9-20); Calcium 8.4 mg/dl (8.4-10.2); Carbon Dioxide 22 mmol/L (22-30); Chloride 102 mmol/L (98-107); Estimated Creatinine Clearance 111 ml/min; Glucose 134 mg/dl (70-99); Potassium 4.5 mmol/L (3.5-5.1); Sodium 128 mmol/L (135-145); eGFR > 60.00
[2025-04-09 06:23] LABS: Hematocrit 31.0 % (39.0-52.0); Hemoglobin 11.5 g/dL (13.0-18.0); Mean Corp Hgb Conc. 37.1 g/dL (33.0-37.0); Mean Corpuscular Volume 86.4 fL (80.0-94.0); Nucleated Red Blood Cells % 0 % (-); Platelet Count 306 10^3/uL (130-400); Red Cell Dist. Width 12.0 % (11.5-14.5)
[2025-04-09] MEDS: PROTONIX 40 MG PO ×2 (08:15→20:28)
[2025-04-09] MEDS: FLORINEF 0.1 MG PO (08:15)
[2025-04-09] MEDS: SODIUM BICARBONATE 1075 MEQ IV (08:21)
--- NOTE | 2025-04-09 09:11 | PN.CDI ---
CDI
- -
CDI:
Physician Documentation Request
Admit Date: 04/07/25 21:15
Dear Doctor,
Patient admitted for URI.
ER Physician Documentation: 'Apparently blood pressure was 60s over 40s via EMS on arrival to his home. Did receive 1 L of fluid prior to arrival.'
04/08 Hospitalist PN: 'Shock secondary to adrenal crisis secondary to viral URI / ?ruled out pneumonia/metabolic acidosis...IV fluids--> change to bicarbonate infusion. Off pressors.'
Please clarify which of the following is the most likely etiology of the above symptoms and treatment rendered:
Hypovolemic shock - indicate if due to surgery, trauma or other etiology
Shock, unknown type
Hypotension - indicate type/etiology, such as idiopathic, neurogenic or orthostatic, post-procedural, postoperative, due to hemodialysis, chronic, drug induced (indicate drug), etc.
Hypotension - unknown type/etiology
Other
Unable to determine
Use of terms such as suspected, likely, concern for, or probable (associated with a specific diagnosis that is being evaluated, monitored, or treated as if it exists) are acceptable and can be coded in the inpatient setting, when documented at the
time of discharge.
Thank you,
Krystin Hardy RN, BSN
CDI Specialist
Available via [place] text
Please use your independent medical judgment in providing your response.
--- NOTE | 2025-04-09 09:13 | W.PN.HOSP.TC ---
Addendum entered and electronically signed by Román Gutierrez MD 04/09/25 17:02:
Hypovolemic shock
Original Note:
Today's Communication/Plan
-
IV stress doses steroids. IV antibiotics. IV PPI.
Assessment / Plan
Assessment / Plan
Physical Exam
General: Acute on chronically ill
HEENT: NormoCephalic, Moist mucous membranes and Atraumatic
Respiratory: Clear
Cardiac: S1/S2 and Regular Rhythm; No Murmur or Rub
GI: Soft, Non Tender, Non Distended and Normal Bowel Sounds; No Organomegaly
Rectal: Deferred by Provider
Musculoskeletal: No Clubbing, No Cyanosis and No Edema
Skin: No Rash
Neuro: Nonfocal/grossly intact
A/P:
[place]'s disease with adrenal crisis:
Continue IV steroid hydrocortisone 50 mg every 6 hours
Continue fludrocortisone 0.1 mg p.o. daily
Hypovolemic shock:
Continue IV fluid
1 L normal saline today stat and then continue with lactated [place]
Add midodrine
No clear-cut evidence of infection but cannot rule it out either at this moment:
Will cover with broad-spectrum antibiotics IV Zosyn and vancomycin
Follow-up cultures
Check MRSA screen
Check CT chest without contrast
Anemia:
Rule out acute blood loss anemia and or GI bleed but suspect dilutional component
Seen CT scan of the abdomen
Continue to monitor hemoglobin
Continue PPI twice daily
Non anion gap metabolic acidosis:
Stop IV bicarbonate infusion
Continue to monitor acidosis
Hyponatremia:
Related to adrenal insufficiency
Slight improvement
Continue to monitor
Hyperkalemia:
Related to adrenal insufficiency
Improved
Continue to monitor
Hypothyroidism:
Continue levothyroxine
DVT prophylaxis:
Lovenox SQ
CODE STATUS:
Full code
Total time spent on today's encounter was 52 minutes which included time spent in counseling the patient/family regarding diagnosis and treatment plan as listed above, goals of care, and symptom management. Case was discussed with nursing staff,
specialists, and care coordinators/case management. All labs and imaging personally reviewed by me. Remainder the time spent in detailed review of previous records, lab data, imaging, and other medical provider documentation.
Anticipated Discharge: > 48 hours
Subjective/Interval History
-
Date of Service: April 09, 2025
Patient feels better overall. No nausea or vomiting. No abdominal pain. No bowel movement. He is passing gases. Mild dry cough. Afebrile
Objective Data
-
Labs:
Laboratory Results
04/09/25 04/09/25
05:20 09:06
WBC 8.8
Hgb 11.5 L
Hct 31.0 L
Plt Count 306
Sodium 128 L Cancelled
Potassium 4.5 Cancelled
Chloride 102 Cancelled
Carbon Dioxide 22 Cancelled
BUN 24 H Cancelled
Creatinine 0.7 Cancelled
Glucose 134 H Cancelled
Calcium 8.4 Cancelled
Vital Signs:
Vital Signs
Temp Pulse Resp BP Pulse Ox
97.5 F 71 16 97/56 98
04/09/25 07:30 04/09/25 07:30 04/09/25 07:30 04/09/25 07:30 04/09/25 07:30
I&O
04/08/25 04/09/25 04/10/25
06:59 06:59 06:59
Intake Total 1130 / 1130 1440 / 1440
Output Total 850 / 850 1700 / 1700
Balance 280 / 280 -260 / -260
[2025-04-09] MEDS: LR 1000 IV (10:38)
[2025-04-09] MEDS: MIRALAX 17 GRAMS PO (11:13)
[2025-04-09] MEDS: NSS 1000 IV (11:55)
[2025-04-09] MEDS: ZOSYN 50 IV ×3 (11:55→23:51)
--- NOTE | 2025-04-09 12:04 | PHA.VAN.IN ---
Assessment
- Assessment
Renal Function: Appears similar to baseline
Concomitant Antimicrobials: piperacillin/tazobactam
AUC Dosing Plan
- Dosing Variables
Dosing Weight (kg): 80
Dosing CrCl (ml/min): 111
Vd coefficient (L/kg): 0.7
- Empiric Dosing
Initial / Loading Dose: 2000mg - administration pending
Maintenance Regimen: Vanc 1250mg Q12H starting 04/10 06
Estimated AUC (mcg*h/mL): 496
Estimated Peak (mcg*h/mL): 32.5
Estimated Trough (mcg/ml): 11.8
Estimated Half Life (H): 7.2
- Monitoring
No levels ordered at this time: consider levels in next few days
Pharmacokinetics Vancomycin I
- -
Patient Age: 59
Patient Sex: Male
Vancomycin Day #: 1
Indication: Bacteremia
Requesting Provider: Dr. Gutierrez
Pertinent Antimicrobial Allergies:
no pertinent antibiotic allergies
Height / Weight:
Height 6 ft 1 in
Actual Weight 67.7 kg
IBW in k.9
Pertinent Past Medical History: BMI ~19.7
- Vital Signs / Lab Results
Temp Pulse Resp BP Pulse Ox
97.7 F 79 14 90/38 94
04/09/25 11:07 04/09/25 11:07 04/09/25 11:07 04/09/25 11:53 04/09/25 11:07
Lab Results - Hematology
04/07/25 04/08/25 04/09/25
18:23 03:36 05:20
WBC 12.9 H 10.4 8.8
Lab Results - Chemistry
04/07/25 04/08/25 04/08/25
18:23 03:36 08:23
BUN 48 H 33 H 29 H
Creatinine 1.3 1.0 1.0
Estimated Creat Clear 78 78
Albumin 3.7 3.5
04/09/25 04/09/25
05:20 09:06
BUN 24 H Cancelled
Creatinine 0.7 Cancelled
Estimated Creat Clear 111 Cancelled
Albumin
04/07/25 04/07/25 04/08/25
18:23 22:30 11:32
Lactic Acid 1.6 Cancelled 0.9
Microbiology Results
04/08/25 08:23 Blood Culture - Preliminary
Blood/Venous No Growth in 24 hours- Final report to follow
04/07/25 18:23 Blood Culture - Preliminary
Blood/Venous No Growth in 24 hours- Final report to follow
04/07/25 18:23 Influenza Types A & B (JORGE) - Final
Nasal Swab Negative for Influenza A & B, NAAT
Negative results must be combined with clinical observations
and patient history.
Nucleic Acid Amplification test (NAAT)performed on the
[employer] NOW platform.
[2025-04-09] MEDS: VANCOCIN 540 MG IV (13:13)
--- NOTE | 2025-04-09 16:18 | CM ---
Pt admitted with adrenal crisis. Currently on IV steroids, IV ABX and IV PPI. He is ambulatory in his room, requiring assist of one at times.
Plan: CM will continue to follow for all discharge planning needs.
[2025-04-09] MEDS: LOVENOX 40 MG SC (18:01)
[2025-04-09 18:23] LABS: Hematocrit 29.0 % (39.0-52.0); Hemoglobin 10.6 g/dL (13.0-18.0)
[2025-04-09 20:53] LABS: Urine Character Slightly Cloudy (Clear)
[2025-04-09 21:38] LABS: Urine Red Blood Cell 21-25 /HPF (0-2); Urine Squamous Cell 0-2 /LPF (Few); Urine White Cell 30-40 /HPF (0-5)
[2025-04-10 03:00] VITALS: BP 95/52
[2025-04-10] MEDS: LR 1000 IV ×2 (04:36→23:22)
[2025-04-10] MEDS: SYNTHROID 75 MCG PO (05:29)
[2025-04-10] MEDS: ZOSYN 50 IV ×4 (05:30→23:23)
[2025-04-10] MEDS: SOLU-CORTEF 50 MG IV ×4 (05:31→23:23)
[2025-04-10 05:37] LABS: Hematocrit 28.5 % (39.0-52.0); Hemoglobin 10.3 g/dL (13.0-18.0); Mean Corp Hgb Conc. 36.1 g/dL (33.0-37.0); Mean Corpuscular Volume 87.4 fL (80.0-94.0); Nucleated Red Blood Cells % 0 % (-); Platelet Count 284 10^3/uL (130-400); Red Cell Dist. Width 12.2 % (11.5-14.5)
[2025-04-10 06:05] LABS: Blood Urea Nitrogen 16 mg/dl (9-20); Calcium 7.9 mg/dl (8.4-10.2); Carbon Dioxide 25 mmol/L (22-30); Chloride 102 mmol/L (98-107); Estimated Creatinine Clearance 111 ml/min; Glucose 132 mg/dl (70-99); Potassium 3.7 mmol/L (3.5-5.1); Sodium 131 mmol/L (135-145); eGFR > 60.00
[2025-04-10] MEDS: VANCOCIN 275 MG IV (06:12)
[2025-04-10 07:38] VITALS: BP 98/53
[2025-04-10] MEDS: FLORINEF 0.1 MG PO (08:38)
[2025-04-10] MEDS: MIRALAX 17 GRAMS PO (08:38)
[2025-04-10] MEDS: PROTONIX 40 MG PO ×2 (08:38→20:26)
[2025-04-10] MEDS: LR IV (10:38)
[2025-04-10 10:42] VITALS: BP 100/54
--- NOTE | 2025-04-10 11:56 | W.PN.HOSP.TC ---
Today's Communication/Plan
-
Stress doses of steroids. Antibiotics. Echocardiogram
Assessment / Plan
Assessment / Plan
Physical Exam
General: Acute on chronically ill
HEENT: NormoCephalic, Moist mucous membranes and Atraumatic
Respiratory: Clear
Cardiac: S1/S2 and Regular Rhythm; No Murmur or Rub
GI: Soft, Non Tender, Non Distended and Normal Bowel Sounds; No Organomegaly
Rectal: Deferred by Provider
Musculoskeletal: No Clubbing, No Cyanosis and No Edema
Skin: No Rash
Neuro: Nonfocal/grossly intact
A/P:
[place]'s disease with adrenal crisis:
Continue IV steroid hydrocortisone 50 mg every 6 hours. Will start tapering over the next 24 hours.
Continue fludrocortisone 0.1 mg p.o. daily
Hypovolemic shock:
Continue IV fluid
Continue midodrine
Obtain echocardiogram to rule out cardiogenic etiology
Possible UTI:
Continue IV Zosyn
Stop vancomycin (MRSA negative)
CT chest with atelectasis mostly
Blood cultures remain negative
Persistent hypotension:
Likely multifactorial and related to above adrenal crisis, hypovolemia, UTI, autonomic, rule out cardiogenic (less likely).
Anemia:
Hemoglobin stable at 10.3
Initial drop might have been dilutional
Non anion gap metabolic acidosis:
Off IV bicarbonate infusion
Continue to monitor acidosis
Hyponatremia:
Related to adrenal insufficiency
Oral fluid restriction
Urine sodium 49 and urine osmolarity 548
Hyperkalemia:
Related to adrenal insufficiency
Improved
Continue to monitor
Hypothyroidism:
Continue levothyroxine
DVT prophylaxis:
Lovenox SQ
CODE STATUS:
Full code
Total time spent on today's encounter was 52 minutes which included time spent in counseling the patient/family regarding diagnosis and treatment plan as listed above, goals of care, and symptom management. Case was discussed with nursing staff,
specialists, and care coordinators/case management. All labs and imaging personally reviewed by me. Remainder the time spent in detailed review of previous records, lab data, imaging, and other medical provider documentation.
Anticipated Discharge: > 48 hours
Subjective/Interval History
-
Date of Service: April 10, 2025
Patient continues to feel well overall. He tells me he may have had some urinary frequency. Afebrile
Objective Data
-
Labs:
Laboratory Results
04/10/25
05:17
WBC 5.6
Hgb 10.3 L
Hct 28.5 L
Plt Count 284
Sodium 131 L
Potassium 3.7
Chloride 102
Carbon Dioxide 25
BUN 16
Creatinine 0.7
Glucose 132 H
Calcium 7.9 L
Vital Signs:
Vital Signs
Temp Pulse Resp BP Pulse Ox
98.1 F 64 16 100/54 96
04/10/25 10:42 04/10/25 10:42 04/10/25 10:42 04/10/25 10:42 04/10/25 10:42
I&O
04/09/25 04/10/25 04/11/25
06:59 06:59 06:59
Intake Total 1440 / 1440 1380 / 1380
Output Total 1700 / 1700 700 / 700
Balance -260 / -260 680 / 680
[2025-04-10 15:11] VITALS: BP 110/57
[2025-04-10] MEDS: LOVENOX 40 MG SC (17:18)
[2025-04-10 19:30] VITALS: BP 103/59
[2025-04-10 23:12] VITALS: BP 113/66
[2025-04-11] VITALS (7 sets, daily range): BP systolic 94–113; BP diastolic 51–62; PULSE 78; O2SAT 97
[2025-04-11] MEDS: ZOSYN 50 IV ×2 (06:33→12:06)
[2025-04-11] MEDS: SOLU-CORTEF 50 MG IV ×3 (06:33→22:03)
[2025-04-11] MEDS: SYNTHROID 75 MCG PO (06:35)
[2025-04-11] MEDS: FLORINEF 0.1 MG PO (08:01)
[2025-04-11] MEDS: PROTONIX 40 MG PO ×2 (08:01→20:20)
[2025-04-11] MEDS: MIRALAX 17 GRAMS PO (08:02)
[2025-04-11] MEDS: LR IV (09:32)
--- NOTE | 2025-04-11 10:53 | W.PN.HOSP.TC ---
Today's Communication/Plan
-
IV steroid, IV antibiotic
Assessment / Plan
Assessment / Plan
Physical Exam
General: Acute on chronically ill
HEENT: NormoCephalic, Moist mucous membranes and Atraumatic
Respiratory: Clear
Cardiac: S1/S2 and Regular Rhythm; No Murmur or Rub
GI: Soft, Non Tender, Non Distended and Normal Bowel Sounds; No Organomegaly
Rectal: Deferred by Provider
Musculoskeletal: No Clubbing, No Cyanosis and No Edema
Skin: No Rash
Neuro: Nonfocal/grossly intact
A/P:
[place]'s disease with adrenal crisis:
Continue IV steroid-->Will start tapering today.
Continue fludrocortisone 0.1 mg p.o. daily
PT eval
Hypovolemic shock:
Stop IV fluid
Continue midodrine
Obtained echocardiogram and unremarkable
UTI:
Change IV Zosyn to IV Rocephin
Called microbiology and result will be in tomorrow
Stopped vancomycin (MRSA negative)
CT chest with atelectasis mostly
Blood cultures remain negative
Persistent hypotension:
Likely multifactorial and related to above adrenal crisis, hypovolemia, UTI, autonomic.
Improving
Anemia:
Hemoglobin stable at 10.3
Initial drop might have been dilutional
Non anion gap metabolic acidosis:
Off IV bicarbonate infusion
Continue to monitor acidosis
Hyponatremia:
Related to adrenal insufficiency
Oral fluid restriction
Urine sodium 49 and urine osmolarity 548
Hyperkalemia:
Related to adrenal insufficiency
Improved
Continue to monitor
Hypothyroidism:
Continue levothyroxine
DVT prophylaxis:
Lovenox SQ
CODE STATUS:
Full code
Total time spent on today's encounter was 36 minutes which included time spent in counseling the patient/family regarding diagnosis and treatment plan as listed above, goals of care, and symptom management. Case was discussed with nursing staff,
specialists, and care coordinators/case management. All labs and imaging personally reviewed by me. Remainder the time spent in detailed review of previous records, lab data, imaging, and other medical provider documentation.
Anticipated Discharge: Within 24 hours
Subjective/Interval History
-
Date of Service: April 11, 2025
Denies any cp or sob. Tired overall. Afebrile
Objective Data
-
Vital Signs:
Vital Signs
Temp Pulse Resp BP Pulse Ox
97.5 F 63 16 102/58 97
04/11/25 08:18 04/11/25 08:18 04/11/25 08:18 04/11/25 08:18 04/11/25 08:42
I&O
04/10/25 04/11/25 04/12/25
06:59 06:59 06:59
Intake Total 1380 / 1380 900 / 900
Output Total 700 / 700 1700 / 1700
Balance 680 / 680 -800 / -800
--- NOTE | 2025-04-11 11:25 | PTOTSP ---
Patient self reports that he feels back to baseline. He demonstrates I with all functional mobility currently. He is I with completing stairs in order to access his bedroom in a safe manner. At this time, there are no skilled PT needs while in
house. Also, anticipate no skilled needs post DC. Will sign off. If situation changes, please reconsult.
[2025-04-11] MEDS: ROCEPHIN 1000 MG IV (13:47)
[2025-04-11] MEDS: STERILE WATER FOR INJECTION 10 ML IV (13:47)
[2025-04-11] MEDS: LOVENOX 40 MG SC (17:21)
[2025-04-12 03:22] VITALS: BP 103/59
[2025-04-12] MEDS: SYNTHROID 75 MCG PO (05:55)
[2025-04-12] MEDS: SOLU-CORTEF 50 MG IV (05:57)
[2025-04-12] MEDS: MIRALAX 17 GRAMS PO (07:42)
[2025-04-12] MEDS: PROTONIX 40 MG PO (07:43)
[2025-04-12] MEDS: FLORINEF 0.1 MG PO (07:43)
[2025-04-12 08:09] LABS: Hematocrit 33.4 % (39.0-52.0); Hemoglobin 11.7 g/dL (13.0-18.0); Mean Corp Hgb Conc. 35.0 g/dL (33.0-37.0); Mean Corpuscular Volume 87.4 fL (80.0-94.0); Platelet Count 402 10^3/uL (130-400); Red Cell Dist. Width 12.4 % (11.5-14.5)
[2025-04-12 08:11] VITALS: BP 101/67
[2025-04-12 08:30] LABS: Blood Urea Nitrogen 17 mg/dl (9-20); Calcium 7.9 mg/dl (8.4-10.2); Carbon Dioxide 30 mmol/L (22-30); Chloride 100 mmol/L (98-107); Estimated Creatinine Clearance > 125 ml/min; Glucose 96 mg/dl (70-99); Potassium 3.7 mmol/L (3.5-5.1); Sodium 133 mmol/L (135-145); eGFR > 60.00
[2025-04-12] MEDS: CORTEF 20 MG PO (08:42)
--- NOTE | 2025-04-12 08:43 | W.PN.HOSP.TC ---
Today's Communication/Plan
-
Discharge planning today
Assessment / Plan
Assessment / Plan
Physical Exam
General: No acute distress
HEENT: NormoCephalic, Moist mucous membranes and Atraumatic
Respiratory: Clear
Cardiac: S1/S2 and Regular Rhythm; No Murmur or Rub
GI: Soft, Non Tender, Non Distended and Normal Bowel Sounds; No Organomegaly
Rectal: Deferred by Provider
Musculoskeletal: No Clubbing, No Cyanosis and No Edema
Skin: No Rash
Neuro: Nonfocal/grossly intact
A/P:
[place]'s disease with adrenal crisis:
Change IV steroids to oral today
Continue fludrocortisone 0.1 mg p.o. daily
PT eval
Hypovolemic shock:
Stop IV fluid
Continue midodrine
Obtained echocardiogram and unremarkable
UTI:
Change IV Rocephin to oral Keflex
MSSA on urine culture
Stopped vancomycin (MRSA negative)
CT chest with atelectasis mostly
Blood cultures remain negative
Persistent hypotension:
Likely multifactorial and related to above adrenal crisis, hypovolemia, UTI, autonomic.
Improving
Anemia:
Hemoglobin stable at 10.3 last time checked
Initial drop might have been dilutional
Non anion gap metabolic acidosis:
Off IV bicarbonate infusion
Continue to monitor acidosis
Hyponatremia:
Related to adrenal insufficiency
Oral fluid restriction
Urine sodium 49 and urine osmolarity 548
Hyperkalemia:
Related to adrenal insufficiency
Improved
Continue to monitor
Hypothyroidism:
Continue levothyroxine
DVT prophylaxis:
Lovenox SQ
CODE STATUS:
Full code
Anticipated Discharge: Today
Subjective/Interval History
-
Date of Service: April 12, 2025
Patient feels well overall. No nausea or vomiting. Afebrile. Blood pressure improved.
Objective Data
-
Labs:
Laboratory Results
04/12/25
07:24
WBC 9.0
Hgb 11.7 L
Hct 33.4 L
Plt Count 402 H D
Sodium 133 L
Potassium 3.7
Chloride 100
Carbon Dioxide 30
BUN 17
Creatinine 0.6 L
Glucose 96
Calcium 7.9 L
Vital Signs:
Vital Signs
Temp Pulse Resp BP Pulse Ox
98.3 F 98 20 101/67 97
04/12/25 08:11 04/12/25 08:11 04/12/25 08:11 04/12/25 08:11 04/12/25 08:11
I&O
04/11/25 04/12/25 04/13/25
06:59 06:59 06:59
Intake Total 900 / 900 840 / 840
Output Total 1700 / 1700 900 / 900
Balance -800 / -800 840 / 840 -900 / -900
--- NOTE | 2025-04-12 08:44 | W.DCSUMMARY ---
Discharge Summary
Discharge Data
Date of Admission: 04/07/25
Date of Discharge: 04/12/25
Total time spent discharging patient (in min): 35
-
Pending Results: No
Hospital Course
Patient 59 years old male with history of adrenal insufficiency and chronic abdominal pain hypothyroidism came into the hospital with abdominal pain nausea vomiting and found to be in shock. Patient required significant amount of IV fluids and
stress doses IV steroids. Patient also was found to have a UTI. He was given broad-spectrum IV antibiotics and subsequently switched to oral antibiotics with Keflex since MSSA grew in the cultures. Stress doses of steroids were tapered down and
he is back to his oral home doses of steroids. Patient was also started on midodrine for blood pressure support. 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 Patient participated with physical therapy and PT
did not feel that he required any PT needs as outpatient. Patient did well rest of hospital stay and he is hemodynamically stable and afebrile. He will be discharged in relatively stable condition today.
Discharge duration: 35-minutes
Discharge Plan
-
Patient Disposition: Home (Routine Discharge)
Discharge Diagnosis/Procedures: Adrenal crisis. Urinary tract infection. Hypotension.
Diet: Low Cholesterol
Activity: As tolerated
Blood Work: Please PCP to order CBC, BMP within 1 week
Referrals:
Alysha Cano MD [Consulting Staff, Endocrinology] - in one to two weeks
Julieta Santos DO [Family Provider, Family Practice] - in less than 1 week
Prescriptions:
New
midodrine 5 mg Tablet
5 mg PO TID@0800,1300,1800 30 Days Qty: 90 0RF
Rx Instructions:
Hold if systolic blood pressure more than 150.
cephalexin 500 mg Capsule
500 mg PO BID 5 Days Qty: 10 0RF
Continued
fludrocortisone 0.1 mg Tablet
0.1 mg PO DAILY Qty: 30 1RF
levothyroxine 50 mcg tablet
75 mcg PO DAILY @ 0600 Qty: 30 0RF
omeprazole 20 mg Capsule,Delayed Release(Dr/Ec)
20 mg PO DAILY
hydrocortisone 10 mg tablet
20 mg PO DAILY
hydrocortisone 10 mg tablet
10 mg PO DAILY@1500
Discharge Orders:
Discharge Patient (As Directed); Ordered 04/12/25
Ordered By: Román Gutierrez
Discharge Date and Time
Print Language: BANGLADESHI
[2025-04-12 11:35] VITALS: BP 105/59
[2025-04-12] MEDS: FLUZONE (6 mos+) 2025-2026 FORMULA 0.5 ML IM (13:01)
[2025-04-12] MEDS: KEFLEX 500 MG PO (13:02)
[2025-04-12 13:07] VITALS: BP 112/59
--- NOTE | 2025-04-12 13:29 | CM ---
MD entered order for discharge.
Spoke with patient in room.
Pt agrees with discharge today .
He said Maggi will drive him home.
Pt declined VN need.
PLAN Home no needs
== END 2025-04-12 15:03 | disposition home or self-care (01) | DRG 643 ==
LOC: 3 WEST ACU 21:15
PROVIDERS: Nurse Practitioner Family; ADMITTING PHYSICIAN Hospitalist; ATTENDING PHYSICIAN Hospitalist; EMERGENCY PHYSICIAN Emergency Medicine; FAMILY PHYSICIAN Family Medicine
PROC: 3E02340 Introduction of Influenza Vaccine into Muscle, Percutaneous Approach (ICD-10-PCS; 2025-04-12)
DX: E27.2 Addisonian crisis (principal); R57.1 Hypovolemic shock; E87.1 Hypo-osmolality and hyponatremia; E87.20 Acidosis, unspecified; N39.0 Urinary tract infection, site not specified; R10.9 Unspecified abdominal pain; E27.1 Primary adrenocortical insufficiency; E03.9 Hypothyroidism, unspecified; K21.00 Gastro-esophageal reflux disease with esophagitis, without bleeding; K59.00 Constipation, unspecified; G89.29 Other chronic pain; J06.9 Acute upper respiratory infection, unspecified; K44.9 Diaphragmatic hernia without obstruction or gangrene; I95.89 Other hypotension; E87.5 Hyperkalemia; J30.89 Other allergic rhinitis; J30.1 Allergic rhinitis due to pollen; Z83.3 Family history of diabetes mellitus; Z82.61 Family history of arthritis; Z87.440 Personal history of urinary (tract) infections; Z83.49 Family history of other endocrine, nutritional and metabolic diseases; Z79.890 Hormone replacement therapy; Z23 Encounter for immunization; Z11.52 Encounter for screening for COVID-19
CPT/HCPCS: 36600; 71046; 71250; 74177; 80048; 80053; 80143; 81003; 81015; 82088; 82533; 82805; 82962; 83605; 83935; 84300; 84439; 84443; 85014; 85018; 85025; 85027; 87040; 87086; 87147; 87186; 87502; 87641; 87811; 90656; 93005; 93306; 96361; 96374; 96375; 97161; 99285; G0008; J7030; Q9967